=== PATIENT | female | born 1955 | race Caucasian/White ===

== ENCOUNTER 2016-11-13 15:23 | Inpatient (IN) ==
--- NOTE | 2016-11-13 15:50 | Emergency Department Note ---
Disposition Clinical Impression: Perirectal abscess Disposition: Still a Patient Referrals: NONE,PCP [Primary Care Provider] - Forms: ED Satisfaction Letter Skin/Abscess/FB HPI Chief complaint: ED Skin/Abscess/Foreign Body Stated complaint: Perirectal abscess Time Seen by Provider: 11/13/16 15:34 Source: patient, family Limitations: no limitations HPI Narrative: Mrs. Beyer, a 61yo female, presents from the oncology clinic via POV for evaluation of a perirectal abscess. Gradually worsening over the past 3-4 days. Patient has a history of rectal cancer; finished radiation several weeks ago, last chemotherapy was Thursday. No change in bowels or bladder. No lower extremity weakness, numbness, tingling. No fevers or chills. Patient does have an ostomy bag over her colon is still patent she typically has mucousy discharge from her rectum with stool going into her colostomy. She has sharp stabbing pain with any weightbearing to the buttock area and is substantially more comfortable laying flat. ROS: Positive: Perirectal pain Negative: Fever, chills, nausea, vomiting, changes in appetite, changes in bowel habits, difficulty with urination, lower extremity weakness or tingling, chest pain, dyspnea, confusion Previous Rx's Medication Instructions Recorded Magic Mouthwash [Magic Mouthwash 10 ml PO QID PRN #240 ml 09/08/16 BLM] Ondansetron HCl [Zofran] 4 mg PO Q4HR #30 tablet 09/08/16 Prochlorperazine Maleate 10 mg PO Q6H PRN #30 tablet 09/08/16 [Compazine] Omeprazole [PriLOSEC] 20 mg PO BIDAC #60 cap 10/13/16 Capecitabine [Xeloda] 2 tab PO BID #56 tablet 10/15/16 Dronabinol [Marinol] 2.5 mg PO BIDLS #60 capsule 10/16/16 Hydromorphone HCl [Dilaudid] 4 mg PO Q4H PRN #120 tablet 10/27/16 Lidocaine 1 applic TP AD #1 tub 10/27/16 Loperamide [Imodium] 2 mg PO Q6H PRN #30 capsule 11/05/16 Hydrocortisone 2.5% CREAM [Cortaid] 1 applic TP BID #1 tube 11/11/16 OxyCODONE ER (12 HR) [OxyCONTIN] 20 mg PO BID #30 tab.er.12h 11/11/16 Allergies Allergy/AdvReac Type Severity Reaction Status Date / Time Sulfa (Sulfonamide Allergy Hives Verified 11/13/16 14:44 Antibiotics) All systems ED: reviewed and negative except as stated. Past Medical History - Past Medical History Medical history: Reports: cancer Surgical history: Reports: cancer surgery Psychiatric history: Reports: anxiety, depression - Social History Smoking Status: Current some day smoker Smokeless Tobacco Status: No Alcohol use: Reports: none Drug use: Reports: none Physical Exam Vital Signs Reviewed General: Patient is alert, oriented, and in no acute distress. She appears frail and cachectic. HEENT: No facial asymmetry. Head is normocephalic and atraumatic. PERRLA, EOMI. oral mucosa moist. Trachea midline. Cardiovascular: Heart regular rate and rhythm without clicks, rubs, gallops, or murmurs. No JVD. PMI nondisplaced. Respiratory: Symmetric chest rise with good respiratory effort. Bilateral breath sounds are clear without wheezing, crackles, or rhonchi. Abdomen: Scaphoid. Bowel sounds present normoactive x-4 quadrants. Abdomen is soft, nondistended, and nontender. No organomegaly noted. Musculoskeletal: Muscle strength 5/5 and symmetric bilaterally in lower extremities. Skin: Oval subcutaneous fluctuant mass measuring 3.5 cm x 2 cm adjacent to the rectum with overlying erythema and warmth. No notable epicenter and overlying skin is intact. No discharge from this mass or from the rectum. Rectal: Rectal exam deferred secondary to the potential of a complicated rectal abscess. CT with IV contrast pending. Psych: Patient's affect is appropriate for situation. - General Limitations: no limitations General appearance: alert, in no apparent distress Course Course Narrative: Posterior presents with perirectal abscess. It is adjacent to intention to the anus. Given her history of rectal cancer as well as immunocompromised state of current chemotherapy and by mouth steroids, is a potentially complicated abscess. Will CT with IV contrast to define its borders and extent. Anticipate consult with surgery after CT. Currently, patient denies any true analgesia at this time. I requested that she let me know and not suffering pain. She agreed. She has no additional complaints or concerns at this time. 18:30 Patient expresses some pain. We will provide 4 mg morphine and reassess. 18:50 Patient's pain has substantially improved with morphine. CT with IV contrast pending. 19:00 Patient signed out to the night team, Dr. Ordaz and Dr. Duarte. Pending studies: CT with IV contrast to assess for perirectal abscess Recommendations: Consult surgery pending CT results for their evaluation and recommendations of bedside drainage versus OR drainage. Anticipated disposition: Dependent upon recommendations of surgery consultation. Vital Signs Temperature 99.2 F 11/13/16 15:24 Pulse Rate 116 11/13/16 15:24 Respiratory Rate 18 11/13/16 15:24 Blood Pressure 157/87 11/13/16 15:24 O2 Sat by Pulse Oximetry 100 11/13/16 15:24 Temperature 99.2 F 11/13/16 15:24 Pulse Rate 94 11/13/16 19:52 Respiratory Rate 18 11/13/16 19:52 Blood Pressure 146/68 11/13/16 19:52 O2 Sat by Pulse Oximetry 98 11/13/16 19:52 Oxygen Delivery Oxygen Delivery Room Air Skin/Abscess/Foreign Body - Lab Data Result diagrams: 11/13/16 16:35 11/13/16 16:35 Lab Results 11/13/16 11/13/16 11/13/16 Range/Units 16:35 16:35 16:35 WBC 13.4 H (4.3-11.1) K/mcL RBC 3.75 L (3.82-4.97) M/mcL Hgb 10.9 L (11.5-15.4) g/dL Hct 34.4 L (35.3-44.9) % MCV 91.7 (83.0-100.0) fL MCH 29.1 (28.0-33.3) pg MCHC 31.7 (31.6-35.5) g/dL RDW 21.0 H (11.5-14.5) % Plt Count 400 (140-400) K/mcL MPV 8.9 L (9.4-12.4) fL Immature Gran % 0.8 (0-4) % Seg Neutrophils % 87.8 % Lymphocytes % 4.4 % Monocytes % 6.3 % Eosinophils % 0.4 % Basophils % 0.3 % Neutrophils # 11.7 H (1.6-8.9) K/mcL Lymphocytes # 0.6 (0.6-4.6) K/mcL Monocytes # 0.8 (0.0-1.3) K/mcL Eosinophils # 0.1 (0.0-0.6) K/mcL Basophils # 0.0 (0.0-0.2) K/mcL PT 12.6 H (9.4-12.1) Seconds INR 1.2 APTT 30.7 (26.0-36.0) Seconds Sodium 135 L (136-145) mEq/L Potassium 4.3 (3.5-4.5) mEq/L Chloride 101 (98-109) mEq/L Carbon Dioxide 26 (19-29) mEq/L BUN 9 (7-20) mg/dL Creatinine 0.59 (0.57-1.11) mg/dL Est GFR ( Amer) > 60 (> 60) Est GFR (Non-Af Amer) > 60 (> 60) BUN/Creatinine Ratio 15 (6-26) Glucose 101 H (70-99) mg/dL Calculated Osmolality 279 L (280-300) Calcium 9.7 (8.6-10.8) mg/dL Attestation Statement - Attestation Attestation: I examined this patient and my medical decision-making was reviewed with the Resident Physician. I agree with the documented findings, disposition and treatment plan as described except to the extent set forth below. Cancer patient receiving pelvic radiation and chemotherapy with a perirectal abscess. Agree with better definition of the anatomy with IV contrast CT scan. CT pending at change of shift, patient will be checked out to Dr. Ordaz.
[2016-11-13 17:02] LABS: BUN/Creatinine Ratio 15 (6-26); Blood Urea Nitrogen 9 mg/dL (7-20); Calcium 9.7 mg/dL (8.6-10.8); Carbon Dioxide 26 mEq/L (19-29); Chloride 101 mEq/L (98-109); Glucose 101 mg/dL (70-99); Osmolality,Calculated 279 (280-300); Potassium 4.3 mEq/L (3.5-4.5); Sodium 135 mEq/L (136-145); eGFR For African Americans > 60 (> 60); eGFR For Non-African Americans > 60 (> 60)
[2016-11-13] MEDS ORDERED: *HR* Morphine 2 MG/ML SYRINGE IVP STA (17:46)
[2016-11-13 19:20] LABS: Basophils % 0.3 %; Eosinophils # 0.1 K/mcL (0.0-0.6); Eosinophils % 0.4 %; Hematocrit 34.4 % (35.3-44.9); Hemoglobin 10.9 g/dL (11.5-15.4); Immature Granulocytes % 0.8 % (0-4); Lymphocytes # 0.6 K/mcL (0.6-4.6); Lymphocytes % 4.4 %; Mean Corpuscular HGB Conc 31.7 g/dL (31.6-35.5); Mean Corpuscular Hemoglobin 29.1 pg (28.0-33.3); Mean Corpuscular Volume 91.7 fL (83.0-100.0); Mean Platelet Volume 8.9 fL (9.4-12.4); Monocytes # 0.8 K/mcL (0.0-1.3); Monocytes % 6.3 %; Neutrophils # 11.7 K/mcL (1.6-8.9); Platelet Count 400 K/mcL (140-400); Red Blood Count 3.75 M/mcL (3.82-4.97); Segmented Neutrophils % 87.8 %
[2016-11-13] MEDS ORDERED: *HR* Morphine 2 MG/ML SYRINGE IVP ONE (19:23)
[2016-11-13 19:25] LABS: INR 1.2; Prothrombin Time 12.6 Seconds (9.4-12.1)
[2016-11-13 19:28] LABS: Activated Partial Thrombo Time 30.7 Seconds (26.0-36.0)
[2016-11-13] MEDS ORDERED: Vancomycin 750 MG in D5% in Water 250 ML IVPB ONE (19:56)
[2016-11-13] MEDS ORDERED: Piperacillin/Tazobactam 3.375 GM in D5% in Water (Mini-Bag+) 100 ML IVPB ONE (19:56)
--- NOTE | 2016-11-13 19:58 | Emergency Department Note ---
Disposition Clinical Impression: Perirectal abscess Colon cancer Qualifiers: Colon location: unspecified part of colon Qualified Code(s): C18.9 - Malignant neoplasm of colon, unspecified Disposition: Admitted As Inpatient Condition: Good Time of Disposition: 21:57 Skin/Abscess/FB HPI Chief complaint: ED Skin/Abscess/Foreign Body Stated complaint: Perirectal abscess Time Seen by Provider: 11/13/16 15:34 Source: patient, family Limitations: no limitations Nursing Notes Reviewed: Yes Vital Signs Reviewed: Yes HPI Narrative: Patient is a 61-year-old female that presents to the emergency department for pain in her buttock. The patient has a history of stage 4 colon cancer for which she is receiving chemotherapy and radiation. Patient states that she has been having this pain for about [address] Gentile who gave her steroids. This did not seem to improve her symptoms. Patient saw Dr. Gentile today who sent her to the emergency department for evaluation. Patient states that she has been having increased pain and swelling in the buttock. He states that she has had 5 radiation treatments most recent was 3 weeks ago. She receives chemotherapy once every 3 weeks last treatment was last Thursday. Patient had surgery for her colon cancer on August 18 at [facility] in [place]. Patient and her thought that there was removal of 8 inches of colon. They also gave her an ileostomy bag at that time. Home Medications Medication Instructions Recorded Confirmed Ondansetron HCl [Zofran] 4 mg PO Q4HR PRN 11/13/16 11/13/16 fentaNYL [Fentanyl] 100 mcg TD Q72H 11/13/16 11/13/16 Previous Rx's Medication Instructions Recorded Magic Mouthwash [Magic Mouthwash 10 ml PO QID PRN #240 ml 09/08/16 BLM] Prochlorperazine Maleate 10 mg PO Q6H PRN #30 tablet 09/08/16 [Compazine] Omeprazole [PriLOSEC] 20 mg PO BIDAC #60 cap 10/13/16 Capecitabine [Xeloda] 2 tab PO BID #56 tablet 10/15/16 Dronabinol [Marinol] 2.5 mg PO BIDLS #60 capsule 10/16/16 Hydromorphone HCl [Dilaudid] 4 mg PO Q4H PRN #120 tablet 10/27/16 Loperamide [Imodium] 2 mg PO Q6H PRN #30 capsule 11/05/16 Hydrocortisone 2.5% CREAM [Cortaid] 1 applic TP BID #1 tube 11/11/16 OxyCODONE ER (12 HR) [OxyCONTIN] 20 mg PO BID #30 tab.er.12h 11/11/16 Allergies Allergy/AdvReac Type Severity Reaction Status Date / Time Sulfa (Sulfonamide Allergy Hives Verified 11/13/16 14:44 Antibiotics) All systems ED: reviewed and negative except as stated. Musculoskeletal: Reports: other (Pain in buttock region) Past Medical History - Past Medical History Medical history: Reports: cancer Surgical history: Reports: cancer surgery Psychiatric history: Reports: anxiety, depression - Social History Smoking Status: Current some day smoker Smokeless Tobacco Status: No Alcohol use: Reports: none Drug use: Reports: none Physical Exam - General Limitations: no limitations General appearance: alert, in no apparent distress - Head Head exam: atraumatic, normocephalic - Neck Neck exam: Present: normal inspection, full ROM, trachea midline - Respiratory Respiratory exam: Present: normal lung sounds bilaterally. Absent: respiratory distress, wheezes - Cardiovascular Cardiovascular exam: Present: regular rate, normal rhythm, normal heart sounds, +S1, +S2 - Abdominal Exam Abdominal exam: Present: soft, tenderness, normal bowel sounds, other (Patient has ileostomy bag) Abdominal tenderness: Present: diffuse, mild - Rectal Exam Customs Agent present during exam: Yes Rectal exam: Present: other (Possible perirectal abscess on the left) - Neurological Exam Neurological exam: Present: alert, oriented X3 - Psychiatric Psychiatric exam: Present: normal affect, normal mood - Skin Skin exam: Present: warm, dry, intact, erythema (Over in her left buttock) Course - Reevaluation(s) Reevaluation #1: Patient was signed out to me at the beginning of my shift this evening Time: 19:00 - Consultations Consultation #1: I called and spoke with Dr. Quintero the on-call surgeon. Dr. Quintero did not feel that this was an abscess he felt like this was more related to her colon cancer. He did not want to do an incision on this patient and stated to start patient on antibiotics, admit to medicine and consult surgery and oncology. Consultation #2: I spoke with Dr. Oswald at 21:20 and he has accepted the patient to his service Time: 21:20 Consultation #3: I spoke with Dr. Montenegro and informed him of the patient's current situation. He has stated that he will see the patient. Time: 22:00 Vital Signs Temperature 99.2 F 11/13/16 15:24 Pulse Rate 116 11/13/16 15:24 Respiratory Rate 18 11/13/16 15:24 Blood Pressure 157/87 11/13/16 15:24 O2 Sat by Pulse Oximetry 100 11/13/16 15:24 Temperature 98.7 F 11/13/16 23:34 Pulse Rate 78 11/13/16 23:34 Respiratory Rate 18 11/13/16 23:34 Blood Pressure 149/82 11/13/16 23:34 O2 Sat by Pulse Oximetry 100 11/13/16 23:34 Oxygen Delivery Oxygen Delivery Room Air Skin/Abscess/Foreign Body - MDM Narrative Medical decision making narrative: I received this patient on signout at shift change. CT scan showed multiple loculated fluid collections in the soft tissue of the perineum. There appeared to transverse pelvic floor maybe interact continuity with the lobar thickening of the sigmoid colon. I called and spoke with Dr. Quintero the on-call surgeon who did not feel that this needed to be operated on at this time but to admit the patient to the hospitalist service and start her on antibiotics. Also ordered CBC and coags in case the patient would need to go to surgery. I spoke with the hospitalist and they have accepted the patient to their service. I will also consult the surgery and oncology per request of Dr. Quintero. Patient will be admitted to the hospital. - Lab Data Lab results reviewed: Yes I reviewed the patient's lab results. Result diagrams: 11/13/16 16:35 11/13/16 16:35 Lab Results 11/13/16 11/13/16 11/13/16 Range/Units 16:35 16:35 16:35 WBC 13.4 H (4.3-11.1) K/mcL RBC 3.75 L (3.82-4.97) M/mcL Hgb 10.9 L (11.5-15.4) g/dL Hct 34.4 L (35.3-44.9) % MCV 91.7 (83.0-100.0) fL MCH 29.1 (28.0-33.3) pg MCHC 31.7 (31.6-35.5) g/dL RDW 21.0 H (11.5-14.5) % Plt Count 400 (140-400) K/mcL MPV 8.9 L (9.4-12.4) fL Immature Gran % 0.8 (0-4) % Seg Neutrophils % 87.8 % Lymphocytes % 4.4 % Monocytes % 6.3 % Eosinophils % 0.4 % Basophils % 0.3 % Neutrophils # 11.7 H (1.6-8.9) K/mcL Lymphocytes # 0.6 (0.6-4.6) K/mcL Monocytes # 0.8 (0.0-1.3) K/mcL Eosinophils # 0.1 (0.0-0.6) K/mcL Basophils # 0.0 (0.0-0.2) K/mcL PT 12.6 H (9.4-12.1) Seconds INR 1.2 APTT 30.7 (26.0-36.0) Seconds Sodium 135 L (136-145) mEq/L Potassium 4.3 (3.5-4.5) mEq/L Chloride 101 (98-109) mEq/L Carbon Dioxide 26 (19-29) mEq/L BUN 9 (7-20) mg/dL Creatinine 0.59 (0.57-1.11) mg/dL Est GFR ( Amer) > 60 (> 60) Est GFR (Non-Af Amer) > 60 (> 60) BUN/Creatinine Ratio 15 (6-26) Glucose 101 H (70-99) mg/dL Calculated Osmolality 279 L (280-300) Calcium 9.7 (8.6-10.8) mg/dL - Radiology Data Radiology results reviewed: Yes I reviewed the patient's radiology results. Pelvis CT 11/13/16 16:28 IMPRESSION: 1. Gross lobular thickening of the distal rectosigmoid colon which appears stable to slightly worse since prior exam. 2. Multiple loculated fluid collections in the soft tissue of the perineum. Largest pocket is in the left perineum and measures approximately up to 4.5 cm in greatest transverse dimension. Some of the smaller fluid collections appear to traverse the pelvic floor and may be in direct continuity with the lobular thickening of the sigmoid colon. D/ / 11/13/2016 18:20:22 Nino Pollack MD / nicolle Interpreting Provider: Nino Pollack MD Critical Care Time Critical Care Time: Yes Total Critical Care Time: 45 Attestation: Critical care performed: Time is exclusive of separately billable procedures. Time includes: direct patient care, patient reassessment, coordination of patient care, interpretation of data (laboratory data, radiology data, and respiratory data), review of patient's medical records, medical consultation and documentation of patient care. Procedures included in critical care time: Procedures excluded from critical care time: Attestation Statement - Attestation Attestation: I, Axel Ordaz MD, personally evaluated this patient and discussed their management with the resident physician. I reviewed the resident's note and agree with the documented findings, medical decision making, and plan of care. This patient was signed out at shift change from Dr. Israel and Dr. Gage. Please refer to their notes for complete details of the history and physical examination. Patient is a 61-year-old female with history of colon cancer with metastasis diagnosed a few months ago. She is currently on chemotherapy and radiation. She presented to the emergency department complaining of pain and swelling of the medial left buttock. At shift change patient is awaiting a CT scan. CT scan did show a perirectal abscess with deep involvement. On examination patient is a well-developed thin male in no acute distress. She is alert and oriented 3. There is no cyanosis or diaphoresis. Chest is nontender to palpation. Breath sounds are equal bilaterally. Heart regular rate and rhythm. Abdomen is soft and nontender with normal bowel sounds. There is a tender erythematous indurated area to the medial aspect of the left buttock. Labs reviewed. CT reviewed. Dr. Xie discussed the case with the surgeon instrumentation manager, Dr. Quintero. He recommended admission by the hospitalist with oncology consultation and he will also consult on the patient. Case discussed with the oncologist instrumentation manager, Dr. Abdalla. The hospitalist, Dr. Oswald, was consulted and accepted admission of the patient.
[2016-11-13] MEDS ORDERED: Naloxone 0.4 MG/ML INJ IVP PRN (22:25)
[2016-11-13] MEDS ORDERED: Acetaminophen 325 MG TABLET PO PRN (22:25)
[2016-11-13] MEDS ORDERED: Ondansetron 4 MG/2 ML VIAL IVP PRN (22:25)
[2016-11-13] MEDS ORDERED: Magic Mouthwash 10 ML UD Cup PO PRN (22:32)
[2016-11-13] MEDS: *HR* Morphine 2 MG/ML SYRINGE IVP PRN (23:41)
[2016-11-14] MEDS: *HR* HYDROcodone/Acet 5/325 mg TABLET PO PRN ×3 (04:01→19:05)
[2016-11-14] MEDS: Piperacillin/Tazobactam 3.375 GM in D5% in Water (Mini-Bag+) 100 ML IVPB SCH ×3 (05:01→21:44)
[2016-11-14] MEDS: *HR* Heparin 5,000 UNIT/ML VIAL SQ SCH ×2 (05:01→16:53)
[2016-11-14] MEDS: *HR* Morphine 2 MG/ML SYRINGE IVP PRN ×5 (05:02→22:00)
--- NOTE | 2016-11-14 05:05 | Internal Med History&Physical ---
Date of Encounter: 11/13/16 Time of Encounter: 21:00 Assessment and Plan (1) DVT prophylaxis Current visit: Yes Status: Acute Heparin subcutaneously (2) Perirectal abscess Current visit: Yes Status: Acute Surgical consult was called by ER. Recommended antibiotic right now. Surgical consult in a.m. Also oncology consult to rule out cancer related abscess. - Continue IV antibiotic with Vanco and Zosyn. - Pain medication for pain control (3) Colon cancer Current visit: Yes Status: Acute Stage IV colon cancer. On chemotherapy right now. Oncology consult for further management. Qualifiers: Colon location: unspecified part of colon Qualified Code(s): C18.9 - Malignant neoplasm of colon, unspecified Internal Medicine - H&P: HPI Chief complaint: Rectal pain Admitted From: Home Plans for Post Hospital Care: Home History of present illness: Ms. Beyer is a 61 year old female with a history of colon cancer with lung metastasis S/P radiation therapy and on chemotherapy present to ER for rectal area pain for 2-3 weeks. Patient said one week prior to her rectal pain, she started radiation therapy, which was stopped now. Patient denies a fever, no nausea, no vomiting, no chest pain, no shortness of breath. In emergency room, pelvis CT shows андрей-rectal abscess. Patient was admitted for further management. Past Med Surg Social Fam HX - Past Medical History Medical history: cancer Psychiatric history: anxiety, depression - Past Surgical History Surgical History: cancer surgery - Social History Smoking Status: Current some day smoker Smokeless Tobacco Status: No Alcohol use: none Drug use: none - Family History Mother Living Status: Hx Family Cardiac Disorders: Yes Hx Family Respiratory Disorders: No Hx Family Cancer: Yes (Colon cancer) Hx Family GI Disorders: No Hx Family Endocrine Disorder: No Hx Family Neuromuscular Disorders: No Hx Family Neurologic Disorders: No Hx Family HEENT Disorders: No Hx Family Autoimmune Disorders: Yes Internal Medicine - H&P: Meds Magic Mouthwash [Magic Mouthwash BLM] 10 ml PO QID PRN #240 ml 09/08/16 [Rx] Prochlorperazine Maleate [Compazine] 10 mg PO Q6H PRN #30 tablet 09/08/16 [Rx] Omeprazole [PriLOSEC] 20 mg PO BIDAC #60 cap 10/13/16 [Rx] Capecitabine [Xeloda] 2 tab PO BID #56 tablet 10/15/16 [Rx] Dronabinol [Marinol] 2.5 mg PO BIDLS #60 capsule 10/16/16 [Rx] Hydromorphone HCl [Dilaudid] 4 mg PO Q4H PRN #120 tablet 10/27/16 [Rx] Loperamide [Imodium] 2 mg PO Q6H PRN #30 capsule 11/05/16 [Rx] Hydrocortisone 2.5% CREAM [Cortaid] 1 applic TP BID #1 tube 11/11/16 [Rx] OxyCODONE ER (12 HR) [OxyCONTIN] 20 mg PO BID #30 tab.er.12h 11/11/16 [Rx] Ondansetron HCl [Zofran] 4 mg PO Q4HR PRN 11/13/16 [History] fentaNYL [Fentanyl] 100 mcg TD Q72H 11/13/16 [History] 3 Allergy/AdvReac Type Severity Reaction Status Date / Time Sulfa (Sulfonamide Allergy Hives Verified 11/13/16 14:44 Antibiotics) All Systems PM: A 10-system review of systems was performed and is negative for pertinent findings except as documented above in the HPI. - Constitutional Vitals: Temp Pulse Resp BP Pulse Ox 98.4 F 77 18 136/76 98 11/14/16 04:44 11/14/16 04:44 11/14/16 04:44 11/14/16 04:44 11/14/16 04:44 General appearance: Present: mild distress, A&O X 3, answers questions appropriately - Head Head exam: Present: atraumatic, normocephalic - Eye Eye exam: Present: PERRL, conjuntiva pink, sclera anicteric Pupils: Present: PERRL - Neck Neck exam general surgery: Present: supple, trachea midline. Absent: lymphadenopathy - Respiratory Respiratory exam: Present: CTAB. Absent: accessory muscle use, rales, rhonchi, wheezes - Cardiovascular Cardiovascular exam: Present: RRR, +S1, +S2. Absent: diastolic murmur, gallop, rubs, systolic murmur - GI/Abdominal GI/Abdominal exam: Present: normal bowel sounds, soft, no peritoneal signs. Absent: distended, tenderness Additional comments: Андрей-rectal skin redness with mass on left side, severe tenderness. Colostomy bag in place. - Extremities Exam Extremities exam: Present: warm, radial pulses palpable and symmetrical. Absent : calf tenderness, cyanotic, pedal edema - Neurological Exam Neurological exam: Present: CN II-XII intact, oriented X3, no focal deficits. Absent: pronater drift, facial droop, speech deficit - Skin Skin exam: Present: dry, intact Internal Med - H&P Results - Labs CBC & Chem 7: 11/13/16 16:35 11/13/16 16:35
[2016-11-14 07:01] LABS: Basophils # 0.1 K/mcL (0.0-0.2); Basophils % 0.4 %; Eosinophils # 0.1 K/mcL (0.0-0.6); Eosinophils % 0.7 %; Hemoglobin 11.7 g/dL (11.5-15.4); Immature Granulocytes % 0.6 % (0-4); Immature Platelets 1.6 % (1.1-6.1); Lymphocytes # 0.7 K/mcL (0.6-4.6); Lymphocytes % 5.4 %; Mean Corpuscular HGB Conc 32.5 g/dL (31.6-35.5); Mean Corpuscular Hemoglobin 29.5 pg (28.0-33.3); Mean Corpuscular Volume 90.9 fL (83.0-100.0); Monocytes # 0.7 K/mcL (0.0-1.3); Monocytes % 5.5 %; Neutrophils # 10.6 K/mcL (1.6-8.9); Platelet Count 497 K/mcL (140-400); Red Blood Count 3.96 M/mcL (3.82-4.97); Red Cell Distribution Width 21.1 % (11.5-14.5); Segmented Neutrophils % 87.4 %
[2016-11-14 07:18] LABS: BUN/Creatinine Ratio 13 (6-26); Blood Urea Nitrogen 8 mg/dL (7-20); Calcium 10.2 mg/dL (8.6-10.8); Carbon Dioxide 25 mEq/L (19-29); Chloride 99 mEq/L (98-109); Glucose 90 mg/dL (70-99); Magnesium 1.8 mg/dL (1.6-2.6); Osmolality,Calculated 278 (280-300); Potassium 3.8 mEq/L (3.5-4.5); Sodium 135 mEq/L (136-145); eGFR For African Americans > 60 (> 60); eGFR For Non-African Americans > 60 (> 60)
[2016-11-14] MEDS: Vancomycin 750 MG in D5% in Water 250 ML IVPB SCH ×2 (07:45→21:45)
[2016-11-14] MEDS ORDERED: Vancomycin 750 MG in D5% in Water 250 ML IVPB SCH (08:00)
[2016-11-14] MEDS ORDERED: Piperacillin/Tazobactam 3.375 GM in D5% in Water (Mini-Bag+) 100 ML IVPB ONE (08:00)
--- NOTE | 2016-11-14 08:55 | Internal Med Progress Note ---
Date of Encounter: 11/14/16 Time of Encounter: 07:45 - Assessment and plan (1) Perirectal abscess Current Visit: Yes Status: Acute Assessment and plan: Acute perirectal abscess - Possibly related to colon cancer and radiation therapy Continue empiric IV Zosyn, IV Vancomycin, IV Morphine as needed for pain CT pelvis - gross lobular thickening of the distal rectosigmoid colon, multiple loculated fluid collection in the soft tissue of the perineum, largest pocket is in the left perineum measuring approximately 4.5 cm, smaller fluid collections seem to traverse the pelvic floor WBC - 12.2 Gen. surgery consult pending, patient may need drainage of abscess NPO, Continue to monitor closely (2) Colon cancer Current Visit: Yes Status: Acute Assessment and plan: Recently diagnosed stage IV colon cancer - with metastases to lung - on chemoradiation Status post partial colectomy with ileostomy Oncology consult Qualifiers: Colon location: unspecified part of colon Qualified Code(s): C18.9 - Malignant neoplasm of colon, unspecified (3) Tobacco abuse Current Visit: Yes Status: Chronic Assessment and plan: Counseled about cessation, nicotine patch (4) DVT prophylaxis Current Visit: Yes Status: Acute Assessment and plan: Continue heparin subcutaneous - Time Spent With Patient 25 - 35 minutes - Subjective Interval history: Patient awake and alert. Not in any distress. Denies chest pain or shortness of breath. No fever. Hemodynamically stable. Denies vomiting or abdominal pain. Patient complains of mild rectal pain, states it has improved. Admitted for perirectal abscess. Gen. surgery will need to evaluate patient. No other acute events or complaints. - Constitutional Vitals: Temp Pulse Resp BP Pulse Ox 98.4 F 72 16 149/86 98 11/14/16 07:37 11/14/16 07:37 11/14/16 07:37 11/14/16 07:37 11/14/16 07:37 General appearance: Present: cachectic, A&O X 3, pleasant, no acute distress, underweight, answers questions appropriately - Head Head exam: Present: atraumatic - Eye Eye exam: Present: EOMI - ENT ENT exam: Present: mucous membranes dry - Respiratory Respiratory exam: Present: CTAB. Absent: rales, rhonchi, wheezes, tachypnea - Cardiovascular Cardiovascular exam: Present: RRR, +S1, +S2 - GI/Abdominal GI/Abdominal exam: Present: soft. Absent: distended, firm, guarding, tenderness Additional comments: Ileostomy bag in place, site looks okay - Rectal Rectal exam: Present: deferred (Due to pain) - Extremities Exam Extremities exam: Present: radial pulses palpable and symmetrical. Absent: cyanotic, pedal edema - Neurological Exam Neurological exam: Present: alert, oriented X3, no focal deficits. Absent: facial droop, speech deficit Internal Medicine: Result - Labs CBC & Chem 7: 11/14/16 04:34 11/14/16 04:34 Labs: Short CBC 11/14/16 Range/Units 04:34 WBC 12.2 H (4.3-11.1) K/mcL Hgb 11.7 (11.5-15.4) g/dL Hct 36.0 (35.3-44.9) % Plt Count 497 H (140-400) K/mcL Neutrophils # 10.6 H (1.6-8.9) K/mcL BMP 11/14/16 04:34 Sodium 135 L Potassium 3.8 Chloride 99 Carbon Dioxide 25 BUN 8 Creatinine 0.61 Glucose 90 Calcium 10.2 - ABG Interpretation ABG results: PT/INR, D-dimer PT 12.6 Seconds (9.4-12.1) H 11/13/16 16:35 Consult Discharge Plan - Plan Referrals: NONE,PCP [Primary Care Provider] -
[2016-11-14] MEDS: Nicotine 21 MG PATCH.TD24 TD SCH (09:42)
--- NOTE | 2016-11-14 10:06 | Oncology Inp Consult Note ---
Date of Encounter: 11/14/16 Time of Encounter: 09:36 Assessment and Plan (1) Perirectal abscess Status: Acute Assessment and plan: - I personally reviewed CT scan images from November 13, 2016 that revealed multiple loculated fluid collections in the soft tissue of the perineum , largest dimension of of approximately 4.5 cm. Findings are highly concerning for a perirectal abscess. I agree with current management including broad spectrum IV antibiotics ( vanco/zosyn) and surgical consult to assess if surgical drainage is feasible. If not, another consideration would be drainage under Interventional radiology. I discussed my recommendations with Ms. Beyer and her at the bedside. Code(s): K61.1 - Rectal abscess SNOMED Code(s): 46478569 (2) Anemia Status: Chronic Assessment and plan: - She has experienced mild anemia, probably due to a combination of mild bone marrow supression in the settings of chemotherapy, as well as anemia of acute illness. At this time her counts are within an acceptable range and not further intervention or work up is required, other than monitoring CBC daily while inpatient. - I would not transfuse unless her Hb or Hct is less than 7 g/dl or 21 percent respectively. Qualifiers: Anemia type: other cause Other causes of anemia: antineoplastic chemotherapy Qualified Code(s): D64.81 - Anemia due to antineoplastic chemotherapy; T45.1X5A - Adverse effect of antineoplastic and immunosuppressive drugs, initial encounter Code(s): D64.9 - Anemia, unspecified SNOMED Code(s): 377435743 (3) Metastatic colon cancer in female Status: Acute Assessment and plan: - She received her last treatment of Xeloda/Oxaliplatin on November 11 ( Oxaliplatin 85 mg/m2) and currently on day 4 of Xeloda 1000 mg/m2. We would recommend to hold off on chemotherapy due to suspected андрей rectal abscess. - I do not think that the radiologic findings are suggestive of disease progression, in the absence of worsening of previous gross lobular thickening of the distal rectosigmoid colon, new adenopathies or new masses. - She will need to follow up with her primary oncologist Dr. Jackman as outpatient ( within 1-2 weeks after discharge) to decide the appropriate time to resume chemotherapy ( including Xeloda). Code(s): C78.5 - Secondary malignant neoplasm of large intestine and rectum SNOMED Code(s): 592197336, 122064975 - Data of Consult Requesting Physician: Celestino Portillo DO Primary Care Provider: PCP NONE - Consult Narrative Reason for consult: Management of stage IV colorectal cancer and perirectal abscess History of present illness: Chief complaint: rectal pain. Ms. Beyer is a 61 year old female with history of metastatic rectal cancer ( [id number]) presenting referred to the ED by her radiation oncologist Dr. Gentile due to worsening rectal pain. Patient was diagnosed with stage IV metastatic rectal cancer ( lung metastasis) in late July, after being found to present a sigmoid colon mass at 15 cm and rectal mass at 5 cm from anal verge. On 07/3016 L lung biopsy confirmed metastatic adenocarcinoma consistent with primary colorectal cancer. On August 18, 2016 she underwent laparoscopic surgery with lysis of adhesions, resection of small bowel and ileostomy. Resected small bowel showed not evidence of carcinoma. Day 1 of palliative chemotherapy was being planned for September 23, but it was postponed due to GIB. Eventually, she received Xelox was started on September 30 ( regimen consisted of Oxaliplatin 85 mg/m2 on day 1, and xeloda 1000 mg BID from day 1-14 of a 21 day cycle). She was treated with palliative radiation to the pelvis from October 16-2016, so her chemotherapy treatments were interrupted. She has received so far 4 doses of Oxaliplatin, with the last treatment administered on November 11, 2016 ( 85 mg/ m2). She resumed xeloda that same day ( current on day 4). She was referred to our ED due to servere rectal pain, that she feels has being worsening for the last 4-5 days. She reports not associated fever, chills. She feels that the pain is better when lying down flat, and worse when sitting down. She has not noticed associated rectal beeding or discharge. She underwent a CT scan in the ED that revealed multiple fluid collections in the perirectal area. Surgery has been consulted to assess whether collections may be drained. Her pelvic scan performed on 11/13 showed stable rectal lobular thickening. No associated lymphadenopathies. Ms. Beyer reports mild tingling in her upper extremities that does not interfere with her daily life routine. She also reports mild redness in both hands that improved after being started on topical hydrocortisone. REVIEW AND SUMMARY OF OLD RECORDS: -I reviewed the patient's chart, including surgical history ( laparoscopic surgery on 08/18/16 with lysis of adhesions, and resected small bowel that showed not evidence of carcinoma) and oncology history dating back to his first documented oncology visit on August 25, 2016, including the clinical events, imaging and pathologic findings that led to the diagnosis of stage IV colorectal cancer. Ms. Beyer was started on chemotherapy with Xelox regimen ( 85 mg/m2 on day 1 and Xeloda 1000 mg BID from day 1-14 of 21 day cycle ) started on September 30 ( day 1 was initially being planned for september 23, but postponed due to GI bleeding), then she experienced another interruption from October 16- while undergoing palliative pelvic radiation. Avastin was being planned with cycle #3 due on November 25, 2016. Past Med Surg Social Fam HX - Past Medical History Medical history: cancer Psychiatric history: anxiety, depression - Past Surgical History Surgical History: cancer surgery - Social History Smoking Status: Current some day smoker Smokeless Tobacco Status: No Alcohol use: none Drug use: none - Family History Mother Living Status: Hx Family Cardiac Disorders: Yes Hx Family Respiratory Disorders: No Hx Family Cancer: Yes (Colon cancer) Hx Family GI Disorders: No Hx Family Endocrine Disorder: No Hx Family Neuromuscular Disorders: No Hx Family Neurologic Disorders: No Hx Family HEENT Disorders: No Hx Family Autoimmune Disorders: Yes Medications and Allergies Magic Mouthwash [Magic Mouthwash BLM] 10 ml PO QID PRN #240 ml 09/08/16 [Rx] Prochlorperazine Maleate [Compazine] 10 mg PO Q6H PRN #30 tablet 09/08/16 [Rx] Omeprazole [PriLOSEC] 20 mg PO BIDAC #60 cap 10/13/16 [Rx] Capecitabine [Xeloda] 2 tab PO BID #56 tablet 10/15/16 [Rx] Dronabinol [Marinol] 2.5 mg PO BIDLS #60 capsule 10/16/16 [Rx] Hydromorphone HCl [Dilaudid] 4 mg PO Q4H PRN #120 tablet 10/27/16 [Rx] Loperamide [Imodium] 2 mg PO Q6H PRN #30 capsule 11/05/16 [Rx] Hydrocortisone 2.5% CREAM [Cortaid] 1 applic TP BID #1 tube 11/11/16 [Rx] OxyCODONE ER (12 HR) [OxyCONTIN] 20 mg PO BID #30 tab.er.12h 11/11/16 [Rx] Ondansetron HCl [Zofran] 4 mg PO Q4HR PRN 11/13/16 [History] fentaNYL [Fentanyl] 100 mcg TD Q72H 11/13/16 [History] 3 Allergy/AdvReac Type Severity Reaction Status Date / Time Sulfa (Sulfonamide Allergy Hives Verified 11/13/16 14:44 Antibiotics) Constitutional: Absent: anorexia, excessive sweating, fever(s), headache(s), increased appetite, night sweats, weight loss Eyes: Absent: diplopia Cardiovascular: Absent: chest pain, chest pain at rest, chest pain with activity , dyspnea, dyspnea on exertion, edema, irregular heart rhythm, leg edema, orthopnea Respiratory: Absent: cough, dyspnea, hemoptysis, dyspnea on exertion Gastrointestinal: Absent: abdominal pain Additional comments: Ileostomy bad noticed; functional with stools present. Reports not change in amount of stools. Genitourinary: Absent: abnormal vaginal bleeding, flank pain Musculoskeletal: Absent: abnormal gait Additional comments: palmar erythema in both hands. Neurological: Present: paresthesias. Absent: abnormal gait, abnormal hearing Psychiatric: Absent: behavioral changes, confusion Endocrine: Absent: excessive sweating, polyphagia Hematologic/Lymphatic: Present: as per HPI Allergic/Immunologic: Absent: throat swelling Oncology - Exam - Constitutional Vitals: Temp Pulse Resp BP Pulse Ox 98.4 F 72 16 149/86 98 11/14/16 07:37 11/14/16 07:37 11/14/16 07:37 11/14/16 07:37 11/14/16 07:37 General appearance: cooperative, no acute distress - Head Head exam: Present: normal inspection, normocephalic - Eye Eye exam: Present: EOMI, normal appearance, PERRL - ENT ENT exam: Present: mucous membranes moist, normal oropharynx - Neck Neck exam: Present: full ROM, normal inspection. Absent: lymphadenopathy, tenderness - Respiratory Respiratory exam: Present: CTAB. Absent: chest wall tenderness, respiratory distress, wheezes - Cardiovascular Cardiovascular exam: Present: RRR. Absent: irregular rhythm, JVD, systolic murmur - GI/Abdominal GI/Abdominal exam: Present: normal bowel sounds. Absent: distended, hyperactive bowel sounds, organomegaly, pulsatile mass, rebound Additional comments: Ileostomy bag noticed. Stools present, soft consistency. No leaks. There is not abdominal tenderness with palpation. BS present. no hepatosplenomegaly. - Extremities Exam Extremities exam: Present: normal inspection. Absent: pedal edema, tenderness - Back Exam Back exam: Present: normal inspection. Absent: muscle spasm, paraspinal tenderness - Neurological Exam Neurological exam: Present: alert, oriented X3. Absent: altered - Psychiatric Psychiatric exam: Present: normal affect, normal mood - Skin Skin exam: Present: normal color. Absent: petechiae Oncology - Results Labs: Short CBC 11/14/16 Range/Units 04:34 WBC 12.2 H (4.3-11.1) K/mcL Hgb 11.7 (11.5-15.4) g/dL Hct 36.0 (35.3-44.9) % Plt Count 497 H (140-400) K/mcL Neutrophils # 10.6 H (1.6-8.9) K/mcL BMP 11/14/16 04:34 Sodium 135 L Potassium 3.8 Chloride 99 Carbon Dioxide 25 BUN 8 Creatinine 0.61 Glucose 90 Calcium 10.2 Consult Discharge Plan - Plan Referrals: NONE,PCP [Primary Care Provider] -
--- NOTE | 2016-11-14 12:14 | General Surgery Consult Note ---
<Rossana Germain Amrita - Last Filed: 11/14/16 13:21> Date of Encounter: 11/14/16 Time of Encounter: 12:00 Assessment and Plan (1) Perirectal abscess Current Visit: Yes Status: Acute Needle aspiration of perirectal abscess today at bedside Regular diet Send fluid for culture- gram stain, aerobic, anaerobic IV antibiotics- Zosyn, Vancomycin Supportive care and pain control Oncology following (2) Rectal adenocarcinoma metastatic to lung Current Visit: Yes Status: Acute Oncology following for recommendations History of Present Illness Consult date: 11/14/16 Reason for consult: other (Perirectal abscess) Requesting physician: Klaus Xie History of present illness: Mrs. Beyer is a very pleasant 61 year old female with a history of Stage 4 metastatic rectal cancer (lung metastasis). She is s/p diverting ileostomy at a [facility] in July of 2016. She is currently on chemotherapy and has received radiation therapy. She reports to the ED with complaints of rectal discomfort for the past 2-3 weeks. She states that the rectal pain has continued to progress without relief. She does report some discharge from her rectum. Denies any nausea/vomiting. Denies any fevers/chills. Denies any abdominal discomfort. Denies any changes in appetite. Denies any diffisulty with urination. She continues to have liquid stool from her ileostomy which is unchanged. She has had a CT scan which shows evidence of perirectal abscess ( multiple). We have been asked to see and evaluate the patient for recommendations. Past Med Surg Social Fam HX - Past Medical History Source: patient, old records reviewed Medical history: cancer (metastatic rectal cancer (lung metastasis)), GERD Psychiatric history: anxiety, depression - Past Surgical History Surgical History: cancer surgery (Diverting ileostomy), other (Lung biopsy) - Social History Smoking Status: Current some day smoker Smokeless Tobacco Status: No Alcohol use: none Drug use: none Current living situation: Home - Independent (with ) Activity Level: Independent ambulation - Family History Mother Living Status: Hx Family Cardiac Disorders: Yes Hx Family Respiratory Disorders: No Hx Family Cancer: Yes (Colon cancer) Hx Family GI Disorders: No Hx Family Endocrine Disorder: No Hx Family Neuromuscular Disorders: No Hx Family Neurologic Disorders: No Hx Family HEENT Disorders: No Hx Family Autoimmune Disorders: Yes Medications and Allergies Magic Mouthwash [Magic Mouthwash BLM] 10 ml PO QID PRN #240 ml 09/08/16 [Rx] Prochlorperazine Maleate [Compazine] 10 mg PO Q6H PRN #30 tablet 09/08/16 [Rx] Omeprazole [PriLOSEC] 20 mg PO BIDAC #60 cap 10/13/16 [Rx] Capecitabine [Xeloda] 2 tab PO BID #56 tablet 10/15/16 [Rx] Dronabinol [Marinol] 2.5 mg PO BIDLS #60 capsule 10/16/16 [Rx] Hydromorphone HCl [Dilaudid] 4 mg PO Q4H PRN #120 tablet 10/27/16 [Rx] Loperamide [Imodium] 2 mg PO Q6H PRN #30 capsule 11/05/16 [Rx] Hydrocortisone 2.5% CREAM [Cortaid] 1 applic TP BID #1 tube 11/11/16 [Rx] OxyCODONE ER (12 HR) [OxyCONTIN] 20 mg PO BID #30 tab.er.12h 11/11/16 [Rx] Ondansetron HCl [Zofran] 4 mg PO Q4HR PRN 11/13/16 [History] fentaNYL [Fentanyl] 100 mcg TD Q72H 11/13/16 [History] 3 Allergy/AdvReac Type Severity Reaction Status Date / Time Sulfa (Sulfonamide Allergy Hives Verified 11/13/16 14:44 Antibiotics) Review of Systems All systems PM: reviewed and no additional remarkable complaints except as stated (in the HPI) All systems PM: A 10-system review of systems was performed and is negative for pertinent findings except as documented above in the HPI. General Surgery Exam Initial Vital Signs Temp Pulse Resp BP Pulse Ox 99.2 F 116 18 157/87 100 11/13/16 15:24 11/13/16 15:24 11/13/16 15:24 11/13/16 15:24 11/13/16 15:24 - General physical appearance well developed, well nourished, moderate pain, cachectic - Eyes normal ocular movement - ENT normal mucosa, atraumatic, normocephalic - Neck trachea midline - Respiratory normal respiratory effort, clear to auscultation - Cardiovascular Cardiovascular exam: Present: RRR - Abdomen Abdomen general surgery: Present: bowel sounds present, soft, non tender, wound (ileostomy pink and moist with liquid stool noted) - Rectum Rectum: Present: other (tender with fluctuance noted bilaterally, mild erythema noted) - Integumentary Integumentary general surgery: Present: warm and dry - Neurologic Present: CN 2-12 grossly intact - Musculoskeletal Present: normal gait, normal posture - Psychiatric Psychiatric general surgery: Present: appropriate, oriented to person, oriented to place, oriented to time, speech is normal, memory intact Exam Initial Vital Signs Temp Pulse Resp BP Pulse Ox 99.2 F 116 18 157/87 100 11/13/16 15:24 11/13/16 15:24 11/13/16 15:24 11/13/16 15:24 11/13/16 15:24 Results - Labs 11/14/16 04:34 11/14/16 04:34 Abnormal lab results WBC 12.2 K/mcL (4.3-11.1) H 11/14/16 04:34 RDW 21.1 % (11.5-14.5) H 11/14/16 04:34 Plt Count 497 K/mcL (140-400) H 11/14/16 04:34 MPV 9.0 fL (9.4-12.4) L 11/14/16 04:34 Neutrophils # 10.6 K/mcL (1.6-8.9) H 11/14/16 04:34 PT 12.6 Seconds (9.4-12.1) H 11/13/16 16:35 Sodium 135 mEq/L (136-145) L 11/14/16 04:34 POC Glucose 110 (58-89) H 11/14/16 11:05 Calculated Osmolality 278 (280-300) L 11/14/16 04:34 Diabetes panel 11/14/16 Range/Units 04:34 Sodium 135 L (136-145) mEq/L Potassium 3.8 (3.5-4.5) mEq/L Chloride 99 (98-109) mEq/L Carbon Dioxide 25 (19-29) mEq/L BUN 8 (7-20) mg/dL Creatinine 0.61 (0.57-1.11) mg/dL Glucose 90 (70-99) mg/dL Calcium 10.2 (8.6-10.8) mg/dL Calcium panel 11/14/16 Range/Units 04:34 Calcium 10.2 (8.6-10.8) mg/dL Pituitary panel 11/14/16 Range/Units 04:34 Sodium 135 L (136-145) mEq/L Potassium 3.8 (3.5-4.5) mEq/L Chloride 99 (98-109) mEq/L Carbon Dioxide 25 (19-29) mEq/L BUN 8 (7-20) mg/dL Creatinine 0.61 (0.57-1.11) mg/dL Glucose 90 (70-99) mg/dL Calcium 10.2 (8.6-10.8) mg/dL Adrenal panel 11/14/16 Range/Units 04:34 Sodium 135 L (136-145) mEq/L Potassium 3.8 (3.5-4.5) mEq/L Chloride 99 (98-109) mEq/L Carbon Dioxide 25 (19-29) mEq/L BUN 8 (7-20) mg/dL Creatinine 0.61 (0.57-1.11) mg/dL Glucose 90 (70-99) mg/dL Calcium 10.2 (8.6-10.8) mg/dL All other labs normal. - Imaging CT scan - abdomen: report reviewed CT scan - pelvis: report reviewed Additional studies: Pelvis CT 11/13/16 16:28 IMPRESSION: 1. Gross lobular thickening of the distal rectosigmoid colon which appears stable to slightly worse since prior exam. Malignant neoplasia is suspected. 2. Multiple loculated fluid collections in the soft tissue of the perineum. Largest pocket is in the left perineum and measures approximately up to 4.5 cm in greatest transverse dimension. Some of the smaller fluid collections appear to traverse the pelvic floor and may be in direct continuity with irregular appearing sigmoid colon. D/ / 11/13/2016 18:20:22 Nino Pollack MD / [facility] Interpreting Provider: Nino Pollack MD Consult Discharge Plan - Plan Referrals: NONE,PCP [Primary Care Provider] - <Emre Quintero M - Last Filed: 11/14/16 16:23> Date of Encounter: 11/14/16 Review of Systems All systems PM: A 10-system review of systems was performed and is negative for pertinent findings except as documented above in the HPI. General Surgery Exam Initial Vital Signs Temp Pulse Resp BP Pulse Ox 99.2 F 116 18 157/87 100 11/13/16 15:24 11/13/16 15:24 11/13/16 15:24 11/13/16 15:24 11/13/16 15:24 Exam Initial Vital Signs Temp Pulse Resp BP Pulse Ox 99.2 F 116 18 157/87 100 11/13/16 15:24 11/13/16 15:24 11/13/16 15:24 11/13/16 15:24 11/13/16 15:24 Results - Labs 11/14/16 04:34 11/14/16 04:34 Abnormal lab results WBC 12.2 K/mcL (4.3-11.1) H 11/14/16 04:34 RDW 21.1 % (11.5-14.5) H 11/14/16 04:34 Plt Count 497 K/mcL (140-400) H 11/14/16 04:34 MPV 9.0 fL (9.4-12.4) L 11/14/16 04:34 Neutrophils # 10.6 K/mcL (1.6-8.9) H 11/14/16 04:34 PT 12.6 Seconds (9.4-12.1) H 11/13/16 16:35 Sodium 135 mEq/L (136-145) L 11/14/16 04:34 POC Glucose 110 (58-89) H 11/14/16 11:05 Calculated Osmolality 278 (280-300) L 11/14/16 04:34 Diabetes panel 11/14/16 Range/Units 04:34 Sodium 135 L (136-145) mEq/L Potassium 3.8 (3.5-4.5) mEq/L Chloride 99 (98-109) mEq/L Carbon Dioxide 25 (19-29) mEq/L BUN 8 (7-20) mg/dL Creatinine 0.61 (0.57-1.11) mg/dL Glucose 90 (70-99) mg/dL Calcium 10.2 (8.6-10.8) mg/dL Calcium panel 11/14/16 Range/Units 04:34 Calcium 10.2 (8.6-10.8) mg/dL Pituitary panel 11/14/16 Range/Units 04:34 Sodium 135 L (136-145) mEq/L Potassium 3.8 (3.5-4.5) mEq/L Chloride 99 (98-109) mEq/L Carbon Dioxide 25 (19-29) mEq/L BUN 8 (7-20) mg/dL Creatinine 0.61 (0.57-1.11) mg/dL Glucose 90 (70-99) mg/dL Calcium 10.2 (8.6-10.8) mg/dL Adrenal panel 11/14/16 Range/Units 04:34 Sodium 135 L (136-145) mEq/L Potassium 3.8 (3.5-4.5) mEq/L Chloride 99 (98-109) mEq/L Carbon Dioxide 25 (19-29) mEq/L BUN 8 (7-20) mg/dL Creatinine 0.61 (0.57-1.11) mg/dL Glucose 90 (70-99) mg/dL Calcium 10.2 (8.6-10.8) mg/dL All other labs normal. - Attending Attestation For this encounter, I have reviewed the MUD BOSS or PA documentation, treatment plan, and medical decision making; and I have had face to face time with this patient. I reviewed the assessment and evaluation with the nurse practitioner and agree with the above plan. We have discussed the patient's clinical course and history that are cancer conference. Patient has rectal sigmoid cancer and had a diverting colostomy performed at [facility]. She has had chemotherapy as well as radiation therapy because of worsening pain symptoms she had a CT scan of the pelvis performed (ordered by the radiation oncologist) . The CT scan shows evidence of fluid loculations in the pelvis in an area extending to the soft tissues of the left buttocks of the anus. On examination there is an area on the left buttocks that is soft and fluctuant tense. There is erythema present. I discussed with the patient that we have discussed the overall considerations early this morning. The possibilities are that this either is a abscess or necrotic tumor or a combination of both. I explained to the patient that most likely this is a combination of extension of her rectal cancer and an abscess. The area is pronounced at the level of the subcutaneous tissue and the epidermis is a buttocks and it is painful causing significant discomfort with sitting. This area will rupture and IV antibiotics alone will not help resolve this fluid collection although it MAY help with the fluid collections deeper in the pelvis along the pelvic floor. Given all the possible scenarios I do not think it would be appropriate to do nothing I the not perform some type of drainage procedure for fear that this may be necrotic cancer. This will not resolve on its own and radiation therapy nor chemotherapy would resolve this if this was necrotic tumor. One way or another this will rupture and it would be best if we can help control this drainage by performing a needle drainage of this which might be a combination of abscess and cancer. I will ask my MUD BOSS to go ahead and perform a needle drainage and I discussed with the patient that this very well could result in a chronic wound. I think that if we do nothing that this will result in a spontaneous rupture and a chronic wound and I think that the CT scan may really demonstrate a fistulous formation from the rectum leading to the skin. At least with a needle drainage we can help contain this and help her symptomatically. The patient understands that this is likely progression of her disease process and understands all possible outcomes. We will go ahead and perform the needle drainage procedure at the beside.
--- NOTE | 2016-11-14 12:31 | IR Progress Note ---
Vital Signs: Vital Signs/O2 Sat, Most Current Temp Pulse Resp BP Pulse Ox 98.9 F 73 15 135/82 100 11/14/16 11:07 11/14/16 11:07 11/14/16 11:07 11/14/16 11:07 11/14/16 11:07 Recent Labs: Lab Results 11/14/16 11/14/16 04:34 04:34 WBC 12.2 H RBC 3.96 Hgb 11.7 Hct 36.0 MCV 90.9 MCH 29.5 MCHC 32.5 RDW 21.1 H Plt Count 497 H MPV 9.0 L Neutrophils # 10.6 H Lymphocytes # 0.7 Monocytes # 0.7 Eosinophils # 0.1 Basophils # 0.1 Sodium 135 L Potassium 3.8 Chloride 99 Carbon Dioxide 25 BUN 8 Creatinine 0.61 Est GFR ( Amer) > 60 Est GFR (Non-Af Amer) > 60 BUN/Creatinine Ratio 13 Glucose 90 Calcium 10.2 Magnesium 1.8 Assessment and Plan Reviewed the pelvic CT scan from 11/13/16. The abnormalities seen in the perirectal/perianal regions are likely necrotic tumor rather than infection. It is very unfortunate to see the aggressive nature of this process. This tumor is likely to invade into and cause ulceration of the skin. Drainage is not indicated.
[2016-11-14] MEDS ORDERED: Lidocaine -MPF 1% 5 ML AMPUL INFILT ONE (12:38)
[2016-11-14] MEDS ORDERED: Lidocaine -MPF 1% 2 ML VIAL INFILT ONE (13:00)
--- NOTE | 2016-11-14 16:15 | General Surgery Procedure Note ---
Date of procedure: 11/14/16 Pre-op diagnosis: Perirectal abscess Post-op diagnosis: same Procedure: After informed consent was obtained and timeout performed, the patient was placed in the left lateral position. Her left buttock was prepped with Betadine swabs. After prepping her buttock, she was localized with 5 mL's of 1 % lidocaine. After achieving appropriate localization, a 19-gauge needle was inserted into the most fluctuant area of the fluid collection. There was immediate return of a small amount of purulent drainage. The needle was redirected in an attempt to aspirate more fluid. A total of 1 mL's of purulent drainage was removed. Cultures were sent for Gram stain, aerobic culture, anaerobic culture, and cytology. The patient tolerated this well. The area was cleansed with water and dried. There was no blood loss and no immediate complications noted. Complications: none Anesthesia: local (1% (5ml)) Surgeon: Rossana Germain Manager Quantitative: Jodi Barron Estimated blood loss (cc): 0 Pathology: other (gram stain, aerobic culture, anaerobic culture, cytology) Condition: stable Disposition: no change
[2016-11-14] MEDS ORDERED: Temazepam 15 MG CAPSULE PO ONE (21:47)
[2016-11-15] MEDS: *HR* HYDROcodone/Acet 5/325 mg TABLET PO PRN ×3 (02:51→15:45)
[2016-11-15 03:06] LABS: Basophils % 0.5 %; Eosinophils # 0.1 K/mcL (0.0-0.6); Eosinophils % 1.5 %; Hemoglobin 11.1 g/dL (11.5-15.4); Immature Granulocytes % 0.9 % (0-4); Lymphocytes # 0.7 K/mcL (0.6-4.6); Lymphocytes % 7.9 %; Mean Corpuscular HGB Conc 31.7 g/dL (31.6-35.5); Mean Corpuscular Hemoglobin 28.5 pg (28.0-33.3); Mean Platelet Volume 8.5 fL (9.4-12.4); Monocytes # 0.6 K/mcL (0.0-1.3); Monocytes % 6.7 %; Neutrophils # 6.8 K/mcL (1.6-8.9); Platelet Count 405 K/mcL (140-400); Red Blood Count 3.89 M/mcL (3.82-4.97); Red Cell Distribution Width 21.2 % (11.5-14.5); Segmented Neutrophils % 82.5 %
[2016-11-15] MEDS: Piperacillin/Tazobactam 3.375 GM in D5% in Water (Mini-Bag+) 100 ML IVPB SCH ×2 (05:45→13:17)
[2016-11-15] MEDS: *HR* Heparin 5,000 UNIT/ML VIAL SQ SCH (05:46)
[2016-11-15] MEDS: Vancomycin 750 MG in D5% in Water 250 ML IVPB SCH (07:51)
[2016-11-15] MEDS: Nicotine 21 MG PATCH.TD24 TD SCH (07:52)
--- NOTE | 2016-11-15 09:19 | General Surgery Progress Note ---
Date of Encounter: 11/15/16 Time of Encounter: : - Assessment and Plan (1) Perirectal abscess Current Visit: Yes Status: Acute I explained to the patient that I am pleased with how well she has been doing since the needle decompression was performed. Although a small amount of fluid was removed she is symptomatically improved. There is no fluctuance on examination. I think that after receiving her next dosage of IV Zosyn that she could be considered for discharge home this evening with oral antibiotics. She will definitely need to follow with oncology within the next couple of weeks and I will make sure she has a chance to follow-up with our office for reevaluation. Subjective Patient reports: other (The patient states that she has less pain and feels better. Denies any drainage.) Objective Vital Signs - Last 8 Hours Temp Pulse Resp BP Pulse Ox 11/15/16 07:25 98.9 F 89 16 150/57 100 11/15/16 04:49 98.5 F 65 16 151/70 94 Intake and Output 11/14/16 11/15/16 11/15/16 23:59 07:59 15:59 Intake Total 250 / 250 100 / 100 Output Total 100 / 100 Balance 150 / 150 100 / 100 Intake: IV Fluids 250 / 250 100 / 100 Zosyn 3.375 GM In 100 / 100 Dextrose 5% (Minibag+) 100 ML 100 ML @ 25 mls/hr IVPB Q8H DENIZ Rx#: [id number] Vancocin 750 MG In 250 / 250 Dextrose 5% 250 ML @ 250 mls/hr IVPB Q12H DENIZ Rx#: [id number] Output: Urine 100 / 100 Other: # Voids 2 Weight 39 kg Blood Glucose* 120 111 Patient Weight 11/15/16 23:59 Weight 39 kg - General physical appearance no distress - Additional Exam Perianal examination does show some still faint redness and induration but decreased fluctuance. No drainage along the left buttocks from the previous needle insertion site. - Labs 11/15/16 02:39 11/14/16 04:34 Consult Discharge Plan - Plan Referrals: NONE,PCP [Primary Care Provider] -
--- NOTE | 2016-11-15 10:31 | Oncology Inp Progress Note ---
Date of Encounter: 11/15/16 Time of Encounter: 10:28 (1) Perirectal abscess Current Visit: Yes Status: Acute Assessment and plan: - Improving after being managed with broad spectrum antibiotics, and needle drainage of 1cc of purulent material ( yesterday). Material sent for cytology, cultures and gram stain. gram stain not specific, cultures and cytology pending. - From the oncology point of view she is being cleared to be discharged home. Antibiotics need to be transitioned to PO. In view of ongoing infectious issues I recommend to continue holding off xeloda upon discharge ( this was discussed with patient). She will need to follow up with her primary Oncologist Dr. Jackman shortly after discharge to discuss further recommendations, including appropriate time to resume chemotherapy. Code(s): K61.1 - Rectal abscess SNOMED Code(s): 11138430 (2) Anemia Current Visit: No Status: Chronic Assessment and plan: - red cell counts remain stable. Qualifiers: Anemia type: other cause Other causes of anemia: antineoplastic chemotherapy Qualified Code(s): D64.81 - Anemia due to antineoplastic chemotherapy; T45.1X5A - Adverse effect of antineoplastic and immunosuppressive drugs, initial encounter Code(s): D64.9 - Anemia, unspecified SNOMED Code(s): 087782508 (3) Metastatic colon cancer in female Current Visit: No Status: Acute Assessment and plan: - She received her last treatment of Xeloda/Oxaliplatin on November 11 ( Oxaliplatin 85 mg/m2) and currently on day 5 since Xeloda was resumed on . Xeloda on hold since admission due to андрей rectal abscess. Code(s): C78.5 - Secondary malignant neoplasm of large intestine and rectum SNOMED Code(s): 082212308, 437304050 Oncology: Subj Interval history: Patient reports improvement of her perineal pain after needle aspiration of small amount of purulent material yesterday ( 1cc). She denies fever, chills. She reports being tolerating meals. Ileostomy working appropriately. Denies significant overnight issues. Family present at bedside, including patient's and daughter. ROS: negative for fever, CP, SOB. - Constitutional Vitals: Vital Signs Temp Pulse Resp BP Pulse Ox 11/15/16 07:25 98.9 F 89 16 150/57 100 11/15/16 04:49 98.5 F 65 16 151/70 94 11/15/16 01:03 98.1 F 71 16 123/70 98 11/14/16 19:25 98.8 F 75 15 135/62 96 11/14/16 16:06 98.8 F 81 15 138/79 99 11/14/16 11:07 98.9 F 73 15 135/82 100 Intake and Output 11/14/16 11/15/16 11/15/16 23:59 07:59 15:59 Intake Total 250 / 250 100 / 100 Output Total 100 / 100 Balance 150 / 150 100 / 100 Intake: IV Fluids 250 / 250 100 / 100 Zosyn 3.375 GM In 100 / 100 Dextrose 5% (Minibag+) 100 ML 100 ML @ 25 mls/hr IVPB Q8H DENIZ Rx#: [id number] Vancocin 750 MG In 250 / 250 Dextrose 5% 250 ML @ 250 mls/hr IVPB Q12H DENIZ Rx#: [id number] Output: Urine 100 / 100 Other: Meal Breakfast Percent of Meal Consumed 0% # Voids 2 Weight 39 kg Blood Glucose* 120 111 Patient Weight 11/15/16 23:59 Weight 39 kg - Head Head exam: Present: normal inspection - Eye Eye exam: Present: EOMI, normal appearance - ENT ENT exam: Present: mucous membranes moist - Respiratory Respiratory exam: Present: CTAB - Cardiovascular Cardiovascular exam: Present: RRR - GI/Abdominal GI/Abdominal exam: Present: normal bowel sounds, soft. Absent: organomegaly, rebound, rigid, tenderness Additional comments: Ileostomy bag in place. - Extremities Exam Extremities exam: Present: normal inspection. Absent: pedal edema - Neurological Exam Neurological exam: Present: oriented X3. Absent: no focal deficits - Psychiatric Psychiatric exam: Present: normal affect, normal mood - Skin Skin exam: Present: normal color Oncology: Obj Data - Labs CBC & Chem 7: 11/15/16 02:39 11/14/16 04:34 Labs: Laboratory Results - last 24 hr 11/14/16 11/14/16 11/15/16 11:05 16:59 01:08 WBC RBC Hgb Hct MCV MCH MCHC RDW Plt Count MPV Immature Gran % Seg Neutrophils % Lymphocytes % Monocytes % Eosinophils % Basophils % Neutrophils # Lymphocytes # Monocytes # Eosinophils # Basophils # POC Glucose 110 H 120 H 111 H Vancomycin Trough 11/15/16 11/15/16 02:39 06:45 WBC 8.2 RBC 3.89 Hgb 11.1 L Hct 35.0 L MCV 90.0 MCH 28.5 MCHC 31.7 RDW 21.2 H Plt Count 405 H MPV 8.5 L Immature Gran % 0.9 Seg Neutrophils % 82.5 Lymphocytes % 7.9 Monocytes % 6.7 Eosinophils % 1.5 Basophils % 0.5 Neutrophils # 6.8 Lymphocytes # 0.7 Monocytes # 0.6 Eosinophils # 0.1 Basophils # 0.0 POC Glucose Vancomycin Trough 14.5 - ABG Interpretation ABG results: PT/INR, D-dimer PT 12.6 Seconds (9.4-12.1) H 11/13/16 16:35 Consult Discharge Plan - Plan Referrals: NONE,PCP [Primary Care Provider] -
--- NOTE | 2016-11-15 13:21 | Discharge Summary ---
Date of Encounter: 11/15/16 Time of Encounter: 07:30 - Discharge Diagnosis (1) Perirectal abscess Priority: Primary Status: Acute Comments: Acute Perirectal abscess - Possibly related to colon cancer and radiation therapy - s/p needle decompression - symptomatically improved Continue empiric PO Clindamycin, [place] as needed for pain CT pelvis - gross lobular thickening of the distal rectosigmoid colon, multiple loculated fluid collection in the soft tissue of the perineum, largest pocket is in the left perineum measuring approximately 4.5 cm, smaller fluid collections seem to traverse the pelvic floor WBC - 12.2 Gen. surgery consult - appreciate input Stable for discharge today Advised to follow up with oncology and general surgery as outpatient, return is symptoms worsen (2) Colon cancer Priority: Primary Status: Acute Comments: Recently diagnosed stage IV colon cancer - with metastases to lung - on chemoradiation Status post partial colectomy with ileostomy Oncology consult - recommendations reviewed - advised to hold chemotherapy until outpatient follow-up Follow up with primary oncologist, Dr. Jackman early next week Qualifiers: Colon location: unspecified part of colon Qualified Code(s): C18.9 - Malignant neoplasm of colon, unspecified (3) Tobacco abuse Priority: Secondary Status: Chronic Comments: Counseled about cessation, nicotine patch - Discharge Medications Prescriptions: Clindamycin HCl 300 mg PO QID 7 Days Nicotine Patch [Nicoderm] 21 mg TD DAILY #30 Home Medications: Magic Mouthwash [Magic Mouthwash BLM] 10 ml PO QID PRN #240 ml 09/08/16 [Rx] Prochlorperazine Maleate [Compazine] 10 mg PO Q6H PRN #30 tablet 09/08/16 [Rx] Omeprazole [PriLOSEC] 20 mg PO BIDAC #60 cap 10/13/16 [Rx] Capecitabine [Xeloda] 2 tab PO BID #56 tablet 10/15/16 [Rx] Dronabinol [Marinol] 2.5 mg PO BIDLS #60 capsule 10/16/16 [Rx] Hydromorphone HCl [Dilaudid] 4 mg PO Q4H PRN #120 tablet 10/27/16 [Rx] Loperamide [Imodium] 2 mg PO Q6H PRN #30 capsule 11/05/16 [Rx] Hydrocortisone 2.5% CREAM [Cortaid] 1 applic TP BID #1 tube 11/11/16 [Rx] OxyCODONE ER (12 HR) [OxyCONTIN] 20 mg PO BID #30 tab.er.12h 11/11/16 [Rx] Ondansetron HCl [Zofran] 4 mg PO Q4HR PRN 11/13/16 [History] fentaNYL [Fentanyl] 100 mcg TD Q72H 11/13/16 [History] Clindamycin HCl 300 mg PO QID 7 Days 11/15/16 [Rx] Nicotine Patch [Nicoderm] 21 mg TD DAILY #30 11/15/16 [Rx] Allergies/Adverse Reactions: 3 Allergy/AdvReac Type Severity Reaction Status Date / Time Sulfa (Sulfonamide Allergy Hives Verified 11/13/16 14:44 Antibiotics) Date of admission: 11/13/16 21:43 Primary care physician: PCP NONE Consults: 11/14/16 11:40 Consult to Interventional Radiology [CONS] Stat Consulting Provider: Radiology Interventional Cols Reason for Consult: Drainage of perianal abcess Call Completed: Yes Anticipated date of discharge: 11/15/16 - Patient Status Disposition: Home, Self-Care Condition: Good Functional capacity at discharge: independent ambulation Overall status at discharge: patient is back to baseline - Discharge Instructions Follow Up With: NONE,PCP [Primary Care Provider] - Edilberto Jackman MD [Partnered Physician] - Emre Quintero MD [Partnered Physician] - Additional Instructions: - Continue all meds as per discharge instructions - We will hold chemotherapy until follow-up with oncology - Follow up with primary care physician and oncology - Advised to follow-up with Gen. surgery as outpatient - Return if symptoms worsen - Diet and Activity Activity: increase activity as tolerated Diet: advance to your usual diet Hospital course: Ms. Beyer is a 61 year old female with past medical history of recently diagnosed metastatic colon cancer status post resection, on chemotherapy, anxiety and depression. Patient presents to the ED with complaints of rectal pain. She was admitted for perirectal abscess. She was started on IV vancomycin and Zosyn. CT of the pelvis show gross lobular thickening of distal rectosigmoid colon with multiple loculated fluid collection in the soft tissue of the perineum with the largest pocket in the left perineum. General surgery evaluated the patient. Bedside needle decompression was performed. Patient tolerated the procedure well and this is given good relief. Patient is being discharged on clindamycin. Oncology is also evaluated patient and recommended close outpatient follow-up with primary oncologist. General surgery also advised outpatient follow-up. Patient was counseled about smoking cessation and started on a nicotine patch. She was on heparin subcutaneous for DVT prophylaxis. Patient is now tolerating oral diet well and ambulating well. She did not have any other acute events or complications during her stay in the hospital. Patient has been explained about her condition and plan of care in detail. She understood and agreed. No unanswered questions. Patient is being discharged in stable condition. She has been advised to follow up with her primary care physician and oncologist. Advised to return if symptoms worsen. Time spent discussing smoking cessation with patient: 3 to 10 minutes - Time Spent with Patient Total time spent providing and/or coordinating discharge services: Less than 30 minutes - Constitutional Vitals: Temp Pulse Resp BP Pulse Ox 98.4 F 83 16 153/81 99 11/15/16 11:06 11/15/16 11:06 11/15/16 11:06 11/15/16 11:06 11/15/16 11:06 General appearance: Present: cachectic, A&O X 3, pleasant, no acute distress, underweight, answers questions appropriately - Head Head exam: Present: atraumatic - Eye Eye exam: Present: EOMI - ENT ENT exam: Present: mucous membranes moist - Respiratory Respiratory exam: Present: CTAB. Absent: rales, rhonchi, wheezes, tachypnea - Cardiovascular Cardiovascular exam: Present: RRR, +S1, +S2 - GI/Abdominal GI/Abdominal exam: Present: soft. Absent: distended, firm, guarding, tenderness Additional comments: Ileostomy bag in place, site looks okay - Rectal Additional comments: Mild erythema present, induration present with decreased fluctuance, no drainage - Extremities Exam Extremities exam: Present: radial pulses palpable and symmetrical. Absent: cyanotic, pedal edema - Neurological Exam Neurological exam: Present: alert, oriented X3, no focal deficits. Absent: facial droop, speech deficit
[2016-11-15 15:12] VITALS: BP 132/73
[2016-11-15] MEDS ORDERED: Aminoglycoside Consult 1 EACH MC ONE (18:04)
== END 2016-11-15 18:05 | disposition home or self-care (01) | DRG 394 ==
LOC: EMEROO 15:23 → 3NENU 21:43
PROVIDERS: ADMIT Internal Medicine; ATTEND Internal Medicine

== ENCOUNTER 2017-05-25 12:00 | Observation (INO) ==
--- NOTE | 2017-05-25 12:29 | Emergency Department Note ---
START Narrative - START START: 62 year old female with history of colon cancer with radiation, presents with андрей-rectal abscess for 2 weeks, got worse for 4 days. Is on flagyl and augmentin from Oncologist. denied chill and fever. Physical exam: a 3x3 cm андрей- rectal abscess noted, erythema, warmth, tender to palpation. Start with labs, needs medical bed and further evaluation
[2017-05-25 14:20] LABS: Basophils # 0.1 K/mcL (0.0-0.2); Basophils % 0.6 %; Eosinophils # 0.1 K/mcL (0.0-0.6); Eosinophils % 0.8 %; Hematocrit 35.9 % (35.3-44.9); Hemoglobin 11.8 g/dL (11.5-15.4); Immature Granulocytes % 0.9 % (0-4); Lymphocytes # 0.5 K/mcL (0.6-4.6); Mean Corpuscular HGB Conc 32.9 g/dL (31.6-35.5); Mean Corpuscular Hemoglobin 34.3 pg (28.0-33.3); Mean Corpuscular Volume 104.4 fL (83.0-100.0); Mean Platelet Volume 9.7 fL (9.4-12.4); Monocytes # 0.4 K/mcL (0.0-1.3); Neutrophils # 8.9 K/mcL (1.6-8.9); Platelet Count 483 K/mcL (140-400); Red Blood Count 3.44 M/mcL (3.82-4.97); Red Cell Distribution Width 14.5 % (11.5-14.5); Segmented Neutrophils % 88.7 %
[2017-05-25 14:35] LABS: Alanine Aminotransferase 13 Units/L (7-52); Albumin 3.8 g/dL (3.5-5.7); Albumin/Globulin Ratio 1.2 (1.1-2.2); Alkaline Phosphatase 263 Units/L (34-104); Aspartate Amino Transferase 15 Units/L (13-39); BUN/Creatinine Ratio 25 (6-26); Bilirubin,Total 0.5 mg/dL (0.3-1.0); Blood Urea Nitrogen 13 mg/dL (8-23); Calcium 9.8 mg/dL (8.6-10.3); Carbon Dioxide 25 mEq/L (23-29); Chloride 103 mEq/L (98-107); Globulin 3.1 g/dL (2.4-3.5); Glucose 99 mg/dL (70-105); Osmolality,Calculated 278 (280-300); Potassium 4.5 mEq/L (3.5-5.1); Sodium 134 mEq/L (136-145); Total Protein 6.9 g/dL (6.4-8.9); eGFR For African Americans > 60 (> 60); eGFR For Non-African Americans > 60 (> 60)
--- NOTE | 2017-05-25 14:49 | Emergency Department Note ---
Disposition Clinical Impression: Fouzia-rectal abscess Disposition: Admitted As Inpatient Condition: Fair Referrals: NONE,PCP [Primary Care Provider] - Forms: ED Satisfaction Letter Time of Disposition: 20:29 General Adult HPI - General Chief complaint: ED Skin/Abscess/Foreign Body Stated complaint: Abscess Time Seen by Provider: 05/25/17 12:20 Source: patient, family Limitations: no limitations Nursing Notes Reviewed: Yes Vital Signs Reviewed: Yes - History of Present Illness HPI Narrative: Patient is a 62-year-old female who presents to [facility] ED with a chief complaint of fouzia-anal abscess. States this has been ongoing for the last 3 days and she feels a bulge when she sits down. Patient has been on Augmentin and Flagyl for the last 6 days. Patient was in radiology today and they took a look and sent her over here for evaluation. Denies any fevers or chills. No chest pain, difficulty breathing, abdominal pain, problems with urination or bowel movements. Patient does have a history of colorectal cancer and is being evaluated to start radiation oncology therapy. Patient is not on chemotherapy at this time. Onset (ago): day(s) Location: buttocks Radiation: non-radiation Pain Severity: moderate Pain Scale: 6 Quality: aching Consistency: constant Improves with: nothing Worsens with: nothing Associated symptoms: Reports: denies other symptoms. Denies: chest pain, cough , fever/chills, loss of appetite, nausea/vomiting, shortness of breath, weakness Treatments Prior to Arrival: none - Related Data Home Medications Medication Instructions Recorded Confirmed Amoxicillin/Clavulanate [Augmentin] 875 mg PO BID 05/25/17 05/25/17 Hydromorphone HCl [Dilaudid] 8 mg PO Q4H PRN 05/25/17 05/25/17 LORazepam [Ativan] 1 mg PO AD PRN 05/25/17 05/25/17 Morphine Sulfate SR (12 HR) [MS 30 mg PO BID 05/25/17 05/25/17 Contin] Omeprazole [PriLOSEC] 20 mg PO BIDAC PRN 05/25/17 05/25/17 metroNIDAZOLE [Flagyl] 500 mg PO TID 05/25/17 05/25/17 Previous Rx's Medication Instructions Recorded Magic Mouthwash [Magic Mouthwash 10 ml PO QID PRN #240 ml 09/08/16 BLM] Prochlorperazine Maleate 10 mg PO Q6H PRN #30 tablet 02/20/17 [Compazine] Ondansetron HCl [Zofran] 4 mg PO Q4HR PRN #30 tablet 04/02/17 Loperamide [Imodium] 2 mg PO Q6H PRN #30 capsule 04/15/17 Diphenoxylate/Atropine [Lomotil 1 each PO Q6H PRN 12 Days #40 04/30/17 2.5 mg/0.025 mg] tablet Allergies Allergy/AdvReac Type Severity Reaction Status Date / Time Sulfa (Sulfonamide Allergy Hives Verified 05/25/17 12:15 Antibiotics) All systems ED: reviewed and negative except as stated. Past Medical History - Past Medical History Attestation: Yes The following information was validated with the patient. Source: patient Medical history: Reports: cancer, GERD Surgical history: Reports: cancer surgery (Diverting ileostomy), other (Lung biopsy) Psychiatric history: Reports: anxiety, depression - Social History Smoking Status: Current every day smoker Smokeless Tobacco Status: No Alcohol use: Reports: none Drug use: Reports: none Physical Exam - General Limitations: no limitations General appearance: alert, in no apparent distress - Head Head exam: atraumatic, normocephalic, normal inspection - Eye Eye exam: Present: normal appearance, EOMI - ENT ENT exam: normal exam, normal oropharynx, mucous membranes moist - Neck Neck exam: Present: normal inspection, full ROM, trachea midline - Chest Chest inspection: Present: normal inspection, symmetric chest wall rise - Respiratory Respiratory exam: Present: normal lung sounds bilaterally - Cardiovascular Cardiovascular exam: Present: regular rate, normal rhythm, normal heart sounds - Abdominal Exam Abdominal exam: Present: soft, Non-Tender, normal bowel sounds. Absent: tenderness, distention, guarding, rebound, rigidity - Rectal Exam Rectal exam: Present: mass (erythema and edema to the R medial buttock adjacent to the anus) - Extremities Exam Extremities exam: Present: normal inspection, full ROM. Absent: tenderness, pedal edema - Neurological Exam Neurological exam: Present: alert, oriented X3 - Psychiatric Psychiatric exam: Present: normal affect, normal mood - Skin Skin exam: Present: warm, dry, intact, normal color Course Course Narrative: Patient seen and examined. Appears to be cellulitis versus abscess in the right medial buttock. We will get a CT abdomen and pelvis with IV contrast to evaluate the depth of this. Patient has been on oral antibiotics for the last 6 days. - Reevaluation(s) Reevaluation #1: CT shows perirectal abscess. Discussed with surgeon Dr. Nicholson who will come evaluate pt in ED. Would like Zosyn started. Time: 16:40 Reevaluation #2: Dr. Nicholson was at the bedside. He had been in surgery so there was a delay in him seeing her. He would like patient admitted to the hospitalist service. I discussed with hospitalist Dr. Amador who has accepted patient for admission. He would like a set of blood cultures drawn. This has been ordered. Time: 20:29 Vital Signs Temperature 97.9 F 05/25/17 12:11 Pulse Rate 80 05/25/17 12:11 Respiratory Rate 16 05/25/17 12:11 Blood Pressure 131/73 05/25/17 12:11 O2 Sat by Pulse Oximetry 99 05/25/17 12:11 Temperature 97.9 F 05/25/17 12:11 Pulse Rate 79 05/25/17 20:35 Respiratory Rate 18 05/25/17 20:35 Blood Pressure 118/82 05/25/17 20:35 O2 Sat by Pulse Oximetry 95 05/25/17 20:35 Oxygen Delivery Oxygen Delivery Room Air Medical Decision Making - Medical Records Medical records reviewed: Yes I reviewed the patient's medical records. - Lab Data Lab results reviewed: Yes I reviewed the patient's lab results. Result diagrams: 05/25/17 13:45 05/25/17 13:45 Lab Results 05/25/17 05/25/17 05/25/17 Range/Units 13:45 13:45 13:45 WBC 10.1 (4.3-11.1) K/mcL RBC 3.44 L (3.82-4.97) M/mcL Hgb 11.8 (11.5-15.4) g/dL Hct 35.9 (35.3-44.9) % MCV 104.4 H (83.0-100.0) fL MCH 34.3 H (28.0-33.3) pg MCHC 32.9 (31.6-35.5) g/dL RDW 14.5 (11.5-14.5) % Plt Count 483 H (140-400) K/mcL MPV 9.7 (9.4-12.4) fL Immature Gran % 0.9 (0-4) % Seg Neutrophils % 88.7 % Lymphocytes % 5.0 % Monocytes % 4.0 % Eosinophils % 0.8 % Basophils % 0.6 % Neutrophils # 8.9 (1.6-8.9) K/mcL Lymphocytes # 0.5 L (0.6-4.6) K/mcL Monocytes # 0.4 (0.0-1.3) K/mcL Eosinophils # 0.1 (0.0-0.6) K/mcL Basophils # 0.1 (0.0-0.2) K/mcL Sodium 134 L (136-145) mEq/L Potassium 4.5 (3.5-5.1) mEq/L Chloride 103 (98-107) mEq/L Carbon Dioxide 25 (23-29) mEq/L BUN 13 (8-23) mg/dL Creatinine 0.51 L (0.60-1.20) mg/dL Est GFR ( Amer) > 60 (> 60) Est GFR (Non-Af Amer) > 60 (> 60) BUN/Creatinine Ratio 25 (6-26) Glucose 99 (70-105) mg/dL Calculated Osmolality 278 L (280-300) Lactic Acid 0.6 (0.5-2.2) mmol/L Calcium 9.8 (8.6-10.3) mg/dL Total Bilirubin 0.5 (0.3-1.0) mg/dL AST 15 (13-39) Units/L ALT 13 (7-52) Units/L Alkaline Phosphatase 263 H (34-104) Units/L Serum Total Protein 6.9 (6.4-8.9) g/dL Albumin 3.8 (3.5-5.7) g/dL Globulin 3.1 (2.4-3.5) g/dL Albumin/Globulin Ratio 1.2 (1.1-2.2) - Radiology Data Radiology results reviewed: Yes I reviewed the patient's radiology results. Abdomen/Pelvis CT 05/25/17 14:32 IMPRESSION: Interval increase in size of loculated perirectal abscess extending from the medial right gluteal fold superiorly to the right perirectal soft tissues. Thickening of the sigmoid rectum is somewhat similar to prior exam. Partially imaged heterogeneous mass in the left lower lobe, not substantially changed along the imaged portion. D/ / 05/25/2017 16:11:44 Jamin Lomax / nicolle Interpreting Provider: Jamin Lomax Attestation Statement - Attestation Attestation: I, Leon Kumar DO, examined this patient [id number] and my medical decision-making was reviewed with Alison Chappell DO , Resident Physician. I agree with the documented findings, disposition and treatment plan as described except to the extent set forth below. Please see my progress notes for details. 62-year-old female presents emergency room with rectal pain. She has a history of a perirectal abscess. She is currently being evaluated and treated for colorectal cancer. Patient denies any fevers or chills nausea vomiting or diarrhea. Denies any headache vision changes chest pain or shortness of breath. Patient says that over the last several days a week she has had pain in her rectal area and multiple starting. This is similar to her last time and she had rectal abscess. She has been on antibiotics including Augmentin and Flagyl from her oncologist. There has not been any clinical resolution of the symptoms. Vital signs remained stable. Patient is otherwise clinically no distress outside of pain and discomfort in her lower pelvic area. CT imaging with IV contrast as well as anabolic regimen and screening labs will be ordered at this time. Patient will be provided with pain medication nausea medication as needed. Physical exam is otherwise unremarkable for pulmonary, cardiac, abdominal related pathology. Rectal examination will be completed after CT imaging is established. Resident physician as well as a medical student did evaluate the perirectal area prior to my coming to the room. For evaluation treatment course will be completed. See detailed documentation of the physical exam, medical intervention, medical decision-making and disposition and the resident physician's note. No critical care by this patient's treatment course at this time. 1600 Patient found to have perirectal abscess. Consultation placed out to on-call surgeon Dr. Nicholson. He will come down and evaluate the patient emergency room to determine whether it is an admission to the surgical services or to the hospitals. IV Zosyn was requested this time. Patient is otherwise clinically stable. 2000 Patient was evaluated by the surgeon Dr. Nicholson in the emergency room. Recommended admission to the hospitalist at this point and then determination of surgical intervention will be established. Patient was discussed with the hospitals. No other recommendations at this time. Patient has been admitted with appropriate antibiotic regimen and surgical consultation.
[2017-05-25] MEDS ORDERED: *HR* FentaNYL (PF) 100 MCG/2 ML VIAL IVP ONE ×2 (15:25→18:35)
[2017-05-25] MEDS ORDERED: Piperacillin/Tazobactam 3.375 GM in 0.9 % Sodium Chloride Mini Bag 100 ML IVPB ONE (16:33)
[2017-05-25] MEDS ORDERED: Ondansetron ODT 4 MG TAB.RAPDIS PO PRN (23:02)
[2017-05-25] MEDS ORDERED: *HR* LORazepam 1 MG TABLET PO PRN (23:02)
[2017-05-25] MEDS ORDERED: Magic Mouthwash 10 ML UD Cup PO PRN (23:02)
--- NOTE | 2017-05-25 23:17 | Internal Med History&Physical ---
Date of Encounter: 05/25/17 Time of Encounter: 23:00 Assessment and Plan (1) Perirectal abscess Current visit: Yes Status: Acute Patient with perirectal abscess. Recurrent episode. Surgery consulted. Will place patient on IV fluids and antibiotics. Pain control. Monitor vital signs closely. Follow wound cultures once abscess is drained. High risk for complications. (2) Cancer associated pain Current visit: Yes Status: Acute Continue home pain medication regimen with Dilaudid and morphine (3) Ileostomy in place Current visit: Yes Status: Acute Treat chronic diarrhea with Lomotil and Imodium that the patient uses at home. (4) Metastatic colorectal cancer Current visit: Yes Status: Acute Follow-up with oncology after discharge for further management. Internal Medicine - H&P: HPI Chief complaint: Perirectal pain Admitted From: Emergency Dept Plans for Post Hospital Care: Home History of present illness: Ms. Beyer is a 62 year old female patient with a history of colon cancer status post ileostomy presented to the ER with complaints of pain in her rectal region. It has been going on for 3 days. She was seen by her oncologist one week back for low-grade fever and was placed on antibiotics-Augmentin and Flagyl which she has been taking for the past 5 days. She denies any current fever or chills. Denies any nausea or vomiting. She has had an episode of perirectal abscess in the past which was drained here. She is not currently on any treatment for her colon cancer and has been treated with palliative chemotherapy. She is supposed to undergo abdominoperineal resection and pelvic exoneration in June. She may receive radiation treatment after that. Patient also has chronic diarrhea due to her ileostomy and takes Imodium and Lomotil regularly. In the ER she reported a pain in her gluteal region of 6 out of 10 in severity. It was nonradiating. Past Med Surg Social Fam HX - Past Medical History Attestation: Yes The following information was validated with the patient. Source: patient Medical history: cancer Psychiatric history: anxiety, depression - Past Surgical History Surgical History: cancer surgery, other - Social History Smoking Status: Current every day smoker Smokeless Tobacco Status: No Alcohol use: none Drug use: none - Family History Mother Living Status: Hx Family Cardiac Disorders: Yes Hx Family Respiratory Disorders: No Hx Family Cancer: Yes (Colon cancer) Hx Family GI Disorders: No Hx Family Endocrine Disorder: No Hx Family Neuromuscular Disorders: No Hx Family Neurologic Disorders: No Hx Family HEENT Disorders: No Hx Family Autoimmune Disorders: Yes Internal Medicine - H&P: Meds Magic Mouthwash [Magic Mouthwash BLM] 10 ml PO QID PRN #240 ml 09/08/16 [Rx] Prochlorperazine Maleate [Compazine] 10 mg PO Q6H PRN #30 tablet 02/20/17 [Rx] Ondansetron HCl [Zofran] 4 mg PO Q4HR PRN #30 tablet 04/02/17 [Rx] Loperamide [Imodium] 2 mg PO Q6H PRN #30 capsule 04/15/17 [Rx] Diphenoxylate/Atropine [Lomotil 2.5 mg/0.025 mg] 1 each PO Q6H PRN 12 Days #40 tablet 04/30/17 [Rx] Amoxicillin/Clavulanate [Augmentin] 875 mg PO BID 05/25/17 [History] Hydromorphone HCl [Dilaudid] 8 mg PO Q4H PRN 05/25/17 [History] LORazepam [Ativan] 1 mg PO AD PRN 05/25/17 [History] Morphine Sulfate SR (12 HR) [MS Contin] 30 mg PO BID 05/25/17 [History] Omeprazole [PriLOSEC] 20 mg PO BIDAC PRN 05/25/17 [History] metroNIDAZOLE [Flagyl] 500 mg PO TID 05/25/17 [History] 3 Allergy/AdvReac Type Severity Reaction Status Date / Time Sulfa (Sulfonamide Allergy Hives Verified 05/25/17 12:15 Antibiotics) All Systems PM: A 10-system review of systems was performed and is negative for pertinent findings except as documented above in the HPI. - Constitutional Constitutional: malaise, no chills, no fever(s), no night sweats - EENT Eyes: no change in vision, no discharge, no pain, no photophobia Ears: no ear discharge, no ear pain, no tinnitus Nose, mouth and throat: no dysphagia, no nasal discharge, no neck pain, no sore throat - Cardiovascular Cardiovascular ROS IM: no chest pain, no diaphoresis, no dyspnea, no lightheadedness, no palpitations, no syncope - Respiratory Respiratory: no cough, no dyspnea, no wheezing, no excessive phlegm production - Gastrointestinal Gastrointestinal: no abdominal pain, no diarrhea, no hematemesis, no hematochezia, no melena, no nausea, no vomiting Additional comments: Rectal pain - Genitourinary Genitourinary: no change in urinary stream, no dysuria, no flank pain, no hematuria - Musculoskeletal Musculoskeletal ROS IM: no numbness, no tingling - Integumentary Integumentary IM: no rash, no unusual bruising - Neurological Neurological ROS: no confusion, no convulsions, no focal weakness, no numbness, no tingling, no tremor(s) - Constitutional Vitals: Temp Pulse Resp BP Pulse Ox 98.1 F 75 15 163/72 100 05/25/17 22:19 05/25/17 22:19 05/25/17 22:19 05/25/17 22:19 05/25/17 22:19 General appearance: Present: mild distress, A&O X 3, answers questions appropriately - Eye Eye exam: Present: EOMI, PERRL, conjuntiva pink, sclera anicteric - Neck Neck exam general surgery: Present: supple, trachea midline. Absent: lymphadenopathy - Respiratory Respiratory exam: Present: CTAB. Absent: accessory muscle use, rales, rhonchi, wheezes - Cardiovascular Cardiovascular exam: Present: RRR, +S1, +S2. Absent: diastolic murmur, gallop, rubs, systolic murmur - GI/Abdominal GI/Abdominal exam: Present: normal bowel sounds, soft, no peritoneal signs. Absent: distended, tenderness Additional comments: Ileostomy with liquid stool in bag. Rectal exam deferred at this time due to pain. - Extremities Exam Extremities exam: Present: warm, radial pulses palpable and symmetrical. Absent : calf tenderness, cyanotic, pedal edema - Neurological Exam Neurological exam: Present: CN II-XII intact, oriented X3, no focal deficits. Absent: pronater drift, facial droop, speech deficit - Skin Skin exam: Present: dry, intact Internal Med - H&P Results - Labs CBC & Chem 7: 05/25/17 13:45 05/25/17 13:45 - Impressions Impressions Abdomen/Pelvis CT 05/25/17 14:32 IMPRESSION: Interval increase in size of loculated perirectal abscess extending from the medial right gluteal fold superiorly to the right perirectal soft tissues. Thickening of the sigmoid rectum is somewhat similar to prior exam. Partially imaged heterogeneous mass in the left lower lobe, not substantially changed along the imaged portion. D/ / 05/25/2017 16:11:44 Jamin Lomax / nicolle Interpreting Provider: Jamin Lomax
[2017-05-25] MEDS ORDERED: Ketorolac 15 MG/ML VIAL IVP PRN (23:25)
[2017-05-25] MEDS ORDERED: Naloxone 0.4 MG/ML INJ IVP PRN (23:25)
[2017-05-26] MEDS: *HR* HYDROmorphone 4 MG TABLET PO PRN ×5 (00:33→20:44)
--- NOTE | 2017-05-26 00:56 | General Surgery Consult Note ---
Date of Encounter: 05/26/17 Time of Encounter: 00:53 Assessment and Plan (1) Rectal abscess Current Visit: Yes Status: Acute 62F with stage IV rectal cancer s/p diversion and neoadjuvant therapy now with recurrent perianal/rectal abscess; Patient is otherwise HDS; concern is about whether or not she will heal if I performed an elaborate or formal procedure; In addition, with her surgery coming soon, there is a risk of destroying those tissue planes that would likely be needed; diet as tolerated IV abx plan for repeat bedside I&D cares per primary team History of Present Illness Consult date: 05/26/17 Reason for consult: other (anal pain) History of present illness: 62F with stage IV rectal cancer complicated by obstruction s/p diverting ileostomy and neoadjuvant therapy who now presents with several days of rectal/ anal pain. No associated fevers, chills, nausea or vomiting; Due to the severity of the pain the patient came to the ED for evaluation. CT scan was obtained, which was interpreted and reviewed by me which demonstrated two fluid collections by 6cm. patient states he has had a prior episode similar to this one which was drained at bedside. Surgery was consulted for surgical evaluation; Past Med Surg Social Fam HX - Past Medical History Medical history: cancer Psychiatric history: anxiety, depression - Past Surgical History Surgical History: cancer surgery, other - Social History Smoking Status: Current every day smoker Smokeless Tobacco Status: No Alcohol use: none Drug use: none - Family History Mother Living Status: Hx Family Cardiac Disorders: Yes Hx Family Respiratory Disorders: No Hx Family Cancer: Yes (Colon cancer) Hx Family GI Disorders: No Hx Family Endocrine Disorder: No Hx Family Neuromuscular Disorders: No Hx Family Neurologic Disorders: No Hx Family HEENT Disorders: No Hx Family Autoimmune Disorders: Yes Medications and Allergies Magic Mouthwash [Magic Mouthwash BLM] 10 ml PO QID PRN #240 ml 09/08/16 [Rx] Prochlorperazine Maleate [Compazine] 10 mg PO Q6H PRN #30 tablet 02/20/17 [Rx] Ondansetron HCl [Zofran] 4 mg PO Q4HR PRN #30 tablet 04/02/17 [Rx] Loperamide [Imodium] 2 mg PO Q6H PRN #30 capsule 04/15/17 [Rx] Diphenoxylate/Atropine [Lomotil 2.5 mg/0.025 mg] 1 each PO Q6H PRN 12 Days #40 tablet 04/30/17 [Rx] Amoxicillin/Clavulanate [Augmentin] 875 mg PO BID 05/25/17 [History] Hydromorphone HCl [Dilaudid] 8 mg PO Q4H PRN 05/25/17 [History] LORazepam [Ativan] 1 mg PO AD PRN 05/25/17 [History] Morphine Sulfate SR (12 HR) [MS Contin] 30 mg PO BID 05/25/17 [History] Omeprazole [PriLOSEC] 20 mg PO BIDAC PRN 05/25/17 [History] metroNIDAZOLE [Flagyl] 500 mg PO TID 05/25/17 [History] 3 Allergy/AdvReac Type Severity Reaction Status Date / Time Sulfa (Sulfonamide Allergy Hives Verified 05/25/17 12:15 Antibiotics) Review of Systems All systems PM: The remainder of the systems were reviewed and are negative General Surgery Exam Initial Vital Signs Temp Pulse Resp BP Pulse Ox 97.9 F 80 16 131/73 99 05/25/17 12:11 05/25/17 12:11 05/25/17 12:11 05/25/17 12:11 05/25/17 12:11 - General physical appearance no distress - Eyes normal ocular movement - ENT normocephalic - Neck no lymphadectomy - Respiratory normal expansion, normal respiratory effort - Cardiovascular Cardiovascular exam: Present: RRR - Abdomen Abdomen general surgery: Present: soft, non tender - Rectum Rectum: Present: other (ileostomy; mild erythema along R glute) - Integumentary Integumentary general surgery: Present: warm and dry - Neurologic Present: CN 2-12 grossly intact - Psychiatric Psychiatric general surgery: Present: A&Ox3 Exam Initial Vital Signs Temp Pulse Resp BP Pulse Ox 97.9 F 80 16 131/73 99 05/25/17 12:11 05/25/17 12:11 05/25/17 12:11 05/25/17 12:11 05/25/17 12:11 Results - Labs 05/25/17 13:45 05/25/17 13:45 Abnormal lab results RBC 3.44 M/mcL (3.82-4.97) L 05/25/17 13:45 MCV 104.4 fL (83.0-100.0) H 05/25/17 13:45 MCH 34.3 pg (28.0-33.3) H 05/25/17 13:45 Plt Count 483 K/mcL (140-400) H 05/25/17 13:45 Lymphocytes # 0.5 K/mcL (0.6-4.6) L 05/25/17 13:45 Sodium 134 mEq/L (136-145) L 05/25/17 13:45 Creatinine 0.51 mg/dL (0.60-1.20) L 05/25/17 13:45 Calculated Osmolality 278 (280-300) L 05/25/17 13:45 Alkaline Phosphatase 263 Units/L (34-104) H 05/25/17 13:45 All other labs normal. - Imaging CT scan - abdomen: report reviewed, image reviewed CT scan - pelvis: report reviewed, image reviewed Consult Discharge Plan - Plan Referrals: NONE,PCP [Primary Care Provider] -
[2017-05-26] MEDS ORDERED: Piperacillin/Tazobactam 3.375 GM in 0.9 % Sodium Chloride Mini Bag 100 ML IVPB SCH (01:00)
[2017-05-26] MEDS: Piperacillin/Tazobactam 3.375 GM in 0.9 % Sodium Chloride Mini Bag 100 ML IVPB SCH ×3 (03:47→18:22)
[2017-05-26] MEDS: *HR* Heparin 5,000 UNIT/ML VIAL SQ SCH ×2 (05:04→17:36)
[2017-05-26 05:42] LABS: Basophils # 0.1 K/mcL (0.0-0.2); Eosinophils # 0.2 K/mcL (0.0-0.6); Eosinophils % 2.4 %; Hemoglobin 13.2 g/dL (11.5-15.4); Immature Granulocytes % 0.8 % (0-4); Lymphocytes % 11.2 %; Mean Corpuscular HGB Conc 33.8 g/dL (31.6-35.5); Mean Corpuscular Hemoglobin 34.7 pg (28.0-33.3); Mean Corpuscular Volume 102.6 fL (83.0-100.0); Mean Platelet Volume 9.3 fL (9.4-12.4); Monocytes # 0.5 K/mcL (0.0-1.3); Monocytes % 5.8 %; Neutrophils # 7.2 K/mcL (1.6-8.9); Platelet Count 535 K/mcL (140-400); Red Cell Distribution Width 14.6 % (11.5-14.5); Segmented Neutrophils % 78.8 %
[2017-05-26 05:59] LABS: BUN/Creatinine Ratio 25 (6-26); Blood Urea Nitrogen 15 mg/dL (8-23); Calcium 9.8 mg/dL (8.6-10.3); Carbon Dioxide 23 mEq/L (23-29); Chloride 104 mEq/L (98-107); Glucose 93 mg/dL (70-105); Osmolality,Calculated 283 (280-300); Potassium 3.9 mEq/L (3.5-5.1); Sodium 136 mEq/L (136-145); eGFR For African Americans > 60 (> 60); eGFR For Non-African Americans > 60 (> 60)
[2017-05-26] MEDS: *HR* Morphine Sulfate SR (12 HR) 30 MG TABLET.ER PO SCH ×2 (08:03→20:44)
[2017-05-26] MEDS: Diphenoxylate/Atropine 1 TAB TABLET PO PRN ×3 (08:06→20:44)
[2017-05-26] MEDS ORDERED: Tdap (ADACEL) Vaccine 0.5 ML IM ONE (14:25)
[2017-05-26] MEDS ORDERED: Lidocaine 1% 20 ML MDV INFILT ONE (14:31)
--- NOTE | 2017-05-26 15:42 | General Surgery Procedure Note ---
Date of procedure: 05/26/17 Pre-op diagnosis: Right gluteal abscess Post-op diagnosis: same Procedure: After informed consent was obtained and timeout completed, the patient's right gluteal fold was prepped and draped. The area was localized with 6 ML's of 1% lidocaine. After achieving appropriate localization, a 2 cm incision was made over the most fluctuaant area using a size 11 blade. There was immediate return of blood tinged drainage without obvious purulence. The cavity was further opened and decompressed using hemostats. Gram stain, aerobic, and anaerobic cultures were obtained. The cavity was packed with 1/4 inch plain gauze and covered with a dry dressing. Complications: No immediate complications Anesthesia: local Surgeon: Rossana Germain Complaint Manager: Ale Jones Estimated blood loss (cc): 1 Pathology: other (Aerobic culture, anaerobic culture, Gram stain) Condition: stable Disposition: no change
--- NOTE | 2017-05-26 17:55 | Internal Med Progress Note ---
Date of Encounter: 05/26/17 Time of Encounter: 10:30 - Assessment and plan (1) Rectal abscess Current Visit: Yes Status: Acute Assessment and plan: Pt was treated outpt with Augmentin and Flagyl po x 5 days without improvement. Recurrent episode. Pt admitted for I and D by Dr. Nicholson and IV antibiotics. Continue pain control and IV Vancomycin and Zosyn. Wound cultures obtained during procedure, results pending. Surgery following, I appreciate their recommendations. Abdomen/Pelvis CT 05/25/17 14:32 IMPRESSION: Interval increase in size of loculated perirectal abscess extending from the medial right gluteal fold superiorly to the right perirectal soft tissues. Thickening of the sigmoid rectum is somewhat similar to prior exam. Partially imaged heterogeneous mass in the left lower lobe, not substantially changed along the imaged portion. D/ / 05/25/2017 16:11:44 Jamin Lomax / nicolle Interpreting Provider: Jamin Lomax (2) Cancer associated pain Current Visit: Yes Status: Acute Assessment and plan: Continue home medications, Morphine and Dilaudid. Pt states that pain is adequately controlled after medication change this a.m. (3) Ileostomy in place Current Visit: Yes Status: Chronic Assessment and plan: Per pt history. Continue home doses of Lomotil and Imodium. (4) Metastatic colorectal cancer Current Visit: Yes Status: Acute Assessment and plan: Pt follows with [facility], follow outpatient after discharge. (5) DVT prophylaxis Current Visit: Yes Status: Acute Assessment and plan: Heparin SQ BID ordered by admitter. - Time Spent With Patient less than 15 minutes - Subjective Interval history: Patient was seen and assessed at 10:30 AM. at bedside. Patient reports that she was treated for a perirectal abscess patient with Augmentin and Flagyl for 5 days became worse. She was admitted for IV antibiotics and surgical consult. Patient reports that initially, her routine pain medications were not ordered, she states now that her pain is under better control.Pt reports decreased appetite but denies n/v/d, abdominal pain. She denies chest pain, SOB, diaphoresis, headache, dizziness. Pt is also aware that she will not be discharged today. - Constitutional Vitals: Temp Pulse Resp BP Pulse Ox 98.2 F 65 14 93/53 98 05/26/17 14:15 05/26/17 14:15 05/26/17 14:15 05/26/17 14:15 05/26/17 14:15 General appearance: Present: cooperative, mild distress, A&O X 3, pleasant, answers questions appropriately - Head Head exam: Present: atraumatic, normal inspection, normocephalic - Eye Eye exam: Present: normal appearance, conjuntiva pink, sclera anicteric - Neck Neck exam general surgery: Present: normal inspection, supple, trachea midline. Absent: lymphadenopathy, tenderness - Respiratory Respiratory exam: Present: CTAB. Absent: accessory muscle use, chest wall tenderness, rales, respiratory distress, rhonchi, wheezes - Cardiovascular Cardiovascular exam: Present: RRR, +S1, +S2. Absent: diastolic murmur, gallop, rubs, systolic murmur - GI/Abdominal GI/Abdominal exam: Present: normal bowel sounds, soft. Absent: distended, hepatomegaly, tenderness - Extremities Exam Extremities exam: Present: normal capillary refill, normal inspection, warm, radial pulses palpable and symmetrical. Absent: calf tenderness, cyanotic, pedal edema, tenderness - Neurological Exam Neurological exam: Present: alert, oriented X3, no focal deficits. Absent: facial droop, speech deficit - Skin Skin exam: Present: dry, intact, normal color, warm. Absent: rash Internal Medicine: Result - Labs CBC & Chem 7: 05/26/17 05:25 05/26/17 05:25 Labs: Short CBC 05/26/17 Range/Units 05:25 WBC 9.1 (4.3-11.1) K/mcL Hgb 13.2 (11.5-15.4) g/dL Hct 39.0 (35.3-44.9) % Plt Count 535 H (140-400) K/mcL Neutrophils # 7.2 (1.6-8.9) K/mcL BMP 05/26/17 05:25 Sodium 136 Potassium 3.9 Chloride 104 Carbon Dioxide 23 BUN 15 Creatinine 0.60 Glucose 93 Calcium 9.8 Consult Discharge Plan - Plan Referrals: NONE,PCP [Primary Care Provider] -
[2017-05-26] MEDS ORDERED: Melatonin 3 MG TABLET PO PRN (21:28)
[2017-05-27] MEDS: *HR* HYDROmorphone 4 MG TABLET PO PRN ×4 (00:36→12:14)
[2017-05-27] MEDS: Piperacillin/Tazobactam 3.375 GM in 0.9 % Sodium Chloride Mini Bag 100 ML IVPB SCH ×2 (04:22→11:01)
[2017-05-27] MEDS: Diphenoxylate/Atropine 1 TAB TABLET PO PRN ×2 (04:22→08:19)
[2017-05-27 05:58] LABS: Basophils # 0.1 K/mcL (0.0-0.2); Eosinophils # 0.3 K/mcL (0.0-0.6); Monocytes # 0.5 K/mcL (0.0-1.3); Red Blood Count 3.43 M/mcL (3.82-4.97); Red Cell Distribution Width 14.6 % (11.5-14.5)
[2017-05-27] MEDS: *HR* Heparin 5,000 UNIT/ML VIAL SQ SCH (06:22)
[2017-05-27 06:28] LABS: BUN/Creatinine Ratio 33 (6-26); Blood Urea Nitrogen 20 mg/dL (8-23); Calcium 9.4 mg/dL (8.6-10.3); Carbon Dioxide 22 mEq/L (23-29); Chloride 108 mEq/L (98-107); Glucose 82 mg/dL (70-105); Osmolality,Calculated 284 (280-300); Potassium 4.3 mEq/L (3.5-5.1); Sodium 136 mEq/L (136-145); eGFR For African Americans > 60 (> 60); eGFR For Non-African Americans > 60 (> 60)
[2017-05-27 06:55] LABS: Basophils % 0.9 %; Eosinophils % 3.5 %; Hematocrit 36.3 % (35.3-44.9); Hemoglobin 11.9 g/dL (11.5-15.4); Immature Granulocytes % 0.9 % (0-4); Lymphocytes # 1.1 K/mcL (0.6-4.6); Lymphocytes % 13.5 %; Mean Corpuscular HGB Conc 32.8 g/dL (31.6-35.5); Mean Corpuscular Hemoglobin 34.7 pg (28.0-33.3); Mean Corpuscular Volume 105.8 fL (83.0-100.0); Mean Platelet Volume 9.6 fL (9.4-12.4); Monocytes % 6.4 %; Platelet Count 495 K/mcL (140-400); Segmented Neutrophils % 74.8 %
[2017-05-27] MEDS: *HR* Morphine Sulfate SR (12 HR) 30 MG TABLET.ER PO SCH (07:42)
[2017-05-27 10:33] VITALS: BP 95/57
--- NOTE | 2017-05-27 13:13 | General Surgery Progress Note ---
Date of Encounter: 05/27/17 Time of Encounter: 12:45 - Assessment and Plan (1) Perirectal abscess Current Visit: Yes Status: Acute S/P I&D 05/26/17- no abscess identified Suspect that the patient's symptoms are a result of her tumor burden Gram stain negative for bacteria Remove packing and dry dressing applied Patient instructed to cleanse the area with soap and water daily and prn if soiled and cover with dry dressing as long at it is draining F/U as needed in the surgery office Subjective Patient reports: no new complaints, still having pain, voiding w/o difficulty, afebrile Objective Vital Signs - Last 8 Hours Temp Pulse Resp BP Pulse Ox 05/27/17 10:28 97.9 F 51 16 95/57 98 05/27/17 06:41 97.9 F 68 14 107/60 96 Intake and Output 05/26/17 05/27/17 05/27/17 23:59 07:59 15:59 Intake Total 240 / 240 350 / 350 340 / 340 Output Total 0 / 0 0 / 0 Balance 240 / 240 350 / 350 340 / 340 Intake: IV Fluids 350 / 350 100 / 100 Zosyn 3.375 GM In 0.9 % Sodium 100 / 100 100 / 100 Chloride (Mini-Bag +) 100 ML @ 25 mls/hr IVPB Q8H DENIZ Rx#: [id number] Vancocin 750 MG In 0.9 % Sodium 250 / 250 Chloride 250 ML @ 250 mls/hr IVPB Q12H DENIZ Rx#:[id number] Oral 240 / 240 0 / 0 240 / 240 Output: Urine 0 / 0 0 / 0 Stool 0 / 0 Other: Meal Dinner Breakfast Percent of Meal Consumed 5% 50% # Voids 0 1 Weight 41.957 kg Patient Weight 05/27/17 23:59 Weight 41.957 kg - General physical appearance well developed, moderate pain, cachectic, chronically ill - Eyes normal ocular movement - ENT normal mucosa, atraumatic, normocephalic - Neck Neck exam: trachea midline - Respiratory normal respiratory effort - Cardiovascular Cardiovascular exam: Present: bradycardia - Abdomen Abdomen: Present: bowel sounds present, soft, non tender - Incision Incision: Present: serosanguinous (scant amount), open - Neurologic CN 2-12 grossly intact - Psychiatric oriented to time, oriented to person, oriented to place, speech is normal, memory intact - Labs 05/27/17 04:43 05/27/17 04:43 Diabetes panel 05/27/17 Range/Units 04:43 Sodium 136 (136-145) mEq/L Potassium 4.3 (3.5-5.1) mEq/L Chloride 108 H (98-107) mEq/L Carbon Dioxide 22 L (23-29) mEq/L BUN 20 (8-23) mg/dL Creatinine 0.60 (0.60-1.20) mg/dL Glucose 82 (70-105) mg/dL Calcium 9.4 (8.6-10.3) mg/dL Calcium panel 05/27/17 Range/Units 04:43 Calcium 9.4 (8.6-10.3) mg/dL Pituitary panel 05/27/17 Range/Units 04:43 Sodium 136 (136-145) mEq/L Potassium 4.3 (3.5-5.1) mEq/L Chloride 108 H (98-107) mEq/L Carbon Dioxide 22 L (23-29) mEq/L BUN 20 (8-23) mg/dL Creatinine 0.60 (0.60-1.20) mg/dL Glucose 82 (70-105) mg/dL Calcium 9.4 (8.6-10.3) mg/dL Adrenal panel 05/27/17 Range/Units 04:43 Sodium 136 (136-145) mEq/L Potassium 4.3 (3.5-5.1) mEq/L Chloride 108 H (98-107) mEq/L Carbon Dioxide 22 L (23-29) mEq/L BUN 20 (8-23) mg/dL Creatinine 0.60 (0.60-1.20) mg/dL Glucose 82 (70-105) mg/dL Calcium 9.4 (8.6-10.3) mg/dL Consult Discharge Plan - Plan Additional Instructions: Please follow up with your PCP in the next 7-10 days for a recheck. Return to the ER as needed for any other problems or concerns, or if your condition worsens. Take your medications as directed, return to your normal diet and activities. Referrals: NONE,PCP [Primary Care Provider] -
--- NOTE | 2017-05-27 13:13 | Discharge Summary ---
Orders not resulted at time of discharge: Pending orders 05/26/17 15:45 Culture,Anaerobic [RM] Stat Culture,Wound [RM] Stat Date of Encounter: 05/27/17 Time of Encounter: 10:45 - Discharge Diagnosis (1) Rectal abscess Priority: Primary Status: Acute Comments: Pt was treated outpt with Augmentin and Flagyl po x 5 days without improvement. Recurrent episode. Pt admitted for I and D by Dr. Nicholson and IV antibiotics. Continue pain control and IV Vancomycin and Zosyn, final gram stain negative for bacteria and white blood cells. Surgery following, I appreciate their recommendations. They have signed off and are removing the packing prior to discharge and will follow up with pt after discharge. No antibiotics on discharge Abdomen/Pelvis CT 05/25/17 14:32 IMPRESSION: Interval increase in size of loculated perirectal abscess extending from the medial right gluteal fold superiorly to the right perirectal soft tissues. Thickening of the sigmoid rectum is somewhat similar to prior exam. Partially imaged heterogeneous mass in the left lower lobe, not substantially changed along the imaged portion. D/ / 05/25/2017 16:11:44 Jamin Lomax / nicolle Interpreting Provider: Jamin Lomax (2) Cancer associated pain Priority: Secondary Status: Acute Comments: Continue home medications. Patient reports the pain has been well controlled. (3) Ileostomy in place Priority: Secondary Status: Chronic Comments: Per history. Patient should continue home doses of Lomotil and Imodium. (4) Metastatic colorectal cancer Priority: Secondary Status: Acute Comments: Follow with [facility] after discharge. Patient has upcoming surgery in June. (5) DVT prophylaxis Priority: Secondary Status: Acute Comments: Heparin subcutaneous twice daily. Hospital course: Ms. Beyer is a 62 year old female with past medical history of metastatic colorectal cancer, ostomy, recurrent perirectal abscess, presented to the emergency room with recurrent pain and worsening rectal abscess. Patient been treated with Flagyl and amoxicillin outpatient for 5 days without improvement. She had an I&D by surgery yesterday, final Gram stain was negative for bacteria or white cells. I spoke with surgery in PT who agrees that this was not infection but was tumor load. Packing will be removed and patient will be appropriate and stable for discharge. She reports that her pain is well- controlled with current medications. Labs are within normal limits. Patient has upcoming surgery in June. Patient should follow up closely with primary care and return if worsening condition. Discharge discussed with: patient, family - Time Spent with Patient Total time spent providing and/or coordinating discharge services: Less than 30 minutes - Discharge Medications Home Medications: Magic Mouthwash [Magic Mouthwash BLM] 10 ml PO QID PRN #240 ml 09/08/16 [Rx] Prochlorperazine Maleate [Compazine] 10 mg PO Q6H PRN #30 tablet 02/20/17 [Rx] Ondansetron HCl [Zofran] 4 mg PO Q4HR PRN #30 tablet 04/02/17 [Rx] Loperamide [Imodium] 2 mg PO Q6H PRN #30 capsule 04/15/17 [Rx] Diphenoxylate/Atropine [Lomotil 2.5 mg/0.025 mg] 1 each PO Q6H PRN 12 Days #40 tablet 04/30/17 [Rx] Hydromorphone HCl [Dilaudid] 8 mg PO Q4H PRN 05/25/17 [History] LORazepam [Ativan] 1 mg PO AD PRN 05/25/17 [History] Morphine Sulfate SR (12 HR) [MS Contin] 30 mg PO BID 05/25/17 [History] Omeprazole [PriLOSEC] 20 mg PO BIDAC PRN 05/25/17 [History] Magic Mouthwash [Magic Mouthwash BLM] 10 ml PO QID PRN #240 ml 05/26/17 [Rx] Omeprazole [PriLOSEC] 20 mg PO DAILY #30 cap 05/26/17 [Rx] Ondansetron HCl [Zofran] 4 mg PO Q4H PRN #30 tablet 05/26/17 [Rx] Prochlorperazine Maleate [Compazine] 10 mg PO Q6H PRN #30 tablet 05/26/17 [Rx] Allergies/Adverse Reactions: 3 Allergy/AdvReac Type Severity Reaction Status Date / Time Sulfa (Sulfonamide Allergy Hives Verified 05/25/17 12:15 Antibiotics) Date of admission: 05/25/17 21:42 Primary care physician: PCP NONE Consults: 05/25/17 22:51 Consult to Nutrition [CONS] Stat Comment: Consulting Provider: NUTRITION Reason for Dietary Consult: MST Score 05/25/17 23:29 Consult to Surgery [CONS] Routine Consulting Provider: Surgery [facility] Reason for Consult: Rectal abscess; Called by ED Time Notified: 23:29 Call Completed: Yes Discharging clinician: Penny Calvert Anticipated date of discharge: 05/27/17 - Constitutional Vitals: Temp Pulse Resp BP Pulse Ox 97.9 F 51 16 95/57 98 05/27/17 10:28 05/27/17 10:28 05/27/17 10:28 05/27/17 10:28 05/27/17 10:28 General appearance: Present: cooperative, mild distress, A&O X 3, pleasant, no acute distress, answers questions appropriately - Head Head exam: Present: atraumatic, normal inspection, normocephalic - Eye Eye exam: Present: normal appearance, conjuntiva pink, sclera anicteric - Neck Neck exam general surgery: Present: supple, trachea midline. Absent: lymphadenopathy - Respiratory Respiratory exam: Present: CTAB. Absent: accessory muscle use, chest wall tenderness, rales, respiratory distress, rhonchi, wheezes - Cardiovascular Cardiovascular exam: Present: RRR, +S1, +S2. Absent: diastolic murmur, gallop, rubs, systolic murmur - GI/Abdominal GI/Abdominal exam: Present: normal bowel sounds, soft. Absent: distended, hepatomegaly, tenderness Additional comments: Ileostomy present. - Extremities Exam Extremities exam: Present: normal capillary refill, normal inspection, warm, radial pulses palpable and symmetrical. Absent: calf tenderness, cyanotic, pedal edema, tenderness - Neurological Exam Neurological exam: Present: alert, oriented X3, no focal deficits. Absent: altered, facial droop, speech deficit - Skin Skin exam: Present: dry, intact, normal color, warm. Absent: rash - Patient Status Disposition: Home, Self-Care Condition: Fair Functional capacity at discharge: uses cane/walker Overall status at discharge: patient is not back to baseline - Discharge Instructions Follow Up With: NONE,PCP [Primary Care Provider] - Additional Instructions: Please follow up with your PCP in the next 7-10 days for a recheck. Return to the ER as needed for any other problems or concerns, or if your condition worsens. Take your medications as directed, return to your normal diet and activities. - Diet and Activity Activity: increase activity as tolerated Diet: advance to your usual diet
[2017-05-27] MEDS ORDERED: Aminoglycoside Consult 1 EACH MC ONE (14:45)
--- NOTE | 2017-05-28 09:20 | Oncology Inp Consult Note ---
Date of Encounter: 05/26/17 Time of Encounter: 09:17 Assessment and Plan (1) Perirectal abscess Status: Acute Assessment and plan: Limited incision and drainage showed serosanguineous fluid. Bacterial stains negative. Wound packing removed and she is improving (2) Metastatic colorectal cancer Status: Acute Assessment and plan: She completed neoadjuvant chemotherapy for metastatic colorectal cancer. She had good improvement with reduction in CEA to 6. Also symptomatically better from the rectal lesion She has isolated left lung metastasis which has grown. I had a a long discussion with Dr. Camryn Nunez at [facility] Pelvic exoneration surgery has been postponed 06/23/2017 Meanwhile we want to take care of the left lung lesion. Dr. Dr. Camryn Nunez wants to make sure the left lung lesion is metastatic from colan and not lung primary. Reviewed the pathology report from the left lung nodule biopsy from [facility] 08/14/2016. The specimen was positive for CK 20 and CD X2 consistent with colon primary. She may not be a candidate for lobectomy for different reasons. The mass may be extending through the fissure which make lobectomy hard and she may end up with left pneumonectomy Also doing a lobectomy may postpone her pelvic exoneration surgery She met with Dr. Gentile radiation oncology. We discussed radiation/SBR T to the left lung radiation. That is very feasible. But if she had SBR T she may not be a candidate for future lobectomy. Dr. Dr. Camryn Nunez is going to discuss this further with thoracic surgery at [facility]. If necessary we will send her that for leukopenia and and further treatment discussion on that - Data of Consult Patient: known to practice within the last 3 years Consult date: 05/26/17 Requesting Physician: Lesley Juarez Primary Care Provider: PCP NONE Family Provider: History of present illness: Admitted with pelvic fluid collection. CT scan showed about 2.5 cm fluid collection right side of rectum with extension not linear fashion towards the skin. Incision and drainage done by surgery about 2 cm incision. Serosanguineous fluid drained and bacterial stains negative. Wound packing removed dressing applied. Oncological history Diagnosis: Metastatic colorectal cancer. Large pelvic primary with large left lung mass. Stage IV History Progressive abdominal pain constipation and weight loss. She had a CT scans at [facility] which I do not have the report She was transferred to [facility] under your care. Sigmoidoscopy revealing 2 separate masses involving rectum and sigmoid colon. She also has left lower lobe lung mass. Pathology sigmoid colon mass at 15 cm and rectal mass at 5 cm from anal verge both showing at least intramucosal carcinoma possibility of invasive carcinoma. CK 20 and CDX-2 positive CK 7 negative on 08/12/2016 08/12/2016 - Left lower lobe lung mass EBUS biopsy- metastatic adenocarcinoma consistent with colorectal primary. CK 20 positive's CDX2 positive and TTF-1 negative Lab Anemia hemoglobin 7.5 on 08/09/2016. She received 4 units of packed RBC transfusion at [place] Her hemoglobin improved to 11 but dropped again with fresh rectal bleed. Finally he does come up to 13 Rest of CBC unremarkable Liver enzymes normal creatinine 0.2-0.3 Glucose around 100 Imaging-[facility] 1. MRI pelvis with and without contrast 08/15/2016 compared to 08/09/2016 CT abdomen from [facility] Jonny centimeters segment of irregular wall thickening rectosigmoid colon. Tethering of surrounding small bowel loops causing small bowel obstruction. Overall mass exerts anterior displacement of uterus and narrowing of the base of the bladder with urinary distention 2. MRI abdomen with and without contrast 08/15/2016 no hepatic metastasis. Mildly prominent aortocaval lymph node 6 mm. Small left and right pleural effusion 3. MRI brain with and without contrast on 08/15/2016 negative for metastasis. No evidence of acute ischemia 4. PET scan on 09/03/16 shows large colonic mass within the pelvis is intensely hypermetabolic with maximum SUV of 15.1. intensely hypermetabolic left lower lobe pulmonary mass SUV 10. Size out 6 cm Surgery Diagnostic laparoscopy with lysis of adhesions on 08/18/2016.. Small bowel resection with end ileostomy. The resected small bowel did not show any carcinoma Palliative chemotherapy Cycle repeated every 3 weeks Oxaliplatin 85 mg/m day 1 Xeloda 1 g by mouth twice a day day one through 14 of 21 day cycle Avastin 7.5 mg per KG . Actually she had only 2 doses since 01/26/2017. Initially not given due to GI bleed and last cycle not given due to ration for surgery Cycle 8 of 8 scheduled on 04/09/2017 She was evaluated by Dr. Sheeba Nunez on at [facility]. The plan is to do pelvic exoneration after 8 cycles of chemotherapy. She continued to respond well. CEA has decreased to 5 on 03/10/2070 Palliative radiation For GI bleed. Radiation to the pelvis from 10/16/2016 to 11/01/2016 Further imaging MRI pelvis 04/29/2017 showed sigmoid colon cancer extending posteriorly . Also rectal cancer with a conglomerate mass that proximal sigmoid colon cancer extending to posterior vaginal fornix and also pararectal tissue T4. N0 by MRI CT chest abdomen and pelvis with IV contrast 05/12/2017 showed slight increase in the left lower lobe lung mass to 5 x 3.8 cm from 4.8 x 3.5 cm he had no new lesions Also mild increase in the fluid collection in the pelvis Past medical hx: No history of heart disease Surgical hx: Sigmoidoscopy-08/2016 Bowel surgery-08/2016 Colostomy-08/2016 Family hx: Mother- Colon Cancer in her early 80's Sister-Colon Cancer before age 50 Brother-MO x2 Father-MO, heart disease 2 daughters age 41 and age 38. Older daughter had a HEENT signs of colitis and had colonoscopy already. Advised to get the other daughter colonoscopy at age 40 Allergies sulfa Social hx: Former smoker-quit 07/2016, had smoked for last 45 years Drinks socially. Family mixed drinks a week. 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 - Consult Narrative History of present illness: Ms. Beyer is a 62 year old female Past Med Surg Social Fam HX - Past Medical History Medical history: cancer Psychiatric history: anxiety, depression - Past Surgical History Surgical History: cancer surgery, other - Social History Smoking Status: Current every day smoker Smokeless Tobacco Status: No Alcohol use: none Drug use: none - Family History Mother Living Status: Hx Family Cardiac Disorders: Yes Hx Family Respiratory Disorders: No Hx Family Cancer: Yes (Colon cancer) Hx Family GI Disorders: No Hx Family Endocrine Disorder: No Hx Family Neuromuscular Disorders: No Hx Family Neurologic Disorders: No Hx Family HEENT Disorders: No Hx Family Autoimmune Disorders: Yes Medications and Allergies Magic Mouthwash [Magic Mouthwash BLM] 10 ml PO QID PRN #240 ml 09/08/16 [Rx] Prochlorperazine Maleate [Compazine] 10 mg PO Q6H PRN #30 tablet 02/20/17 [Rx] Ondansetron HCl [Zofran] 4 mg PO Q4HR PRN #30 tablet 04/02/17 [Rx] Loperamide [Imodium] 2 mg PO Q6H PRN #30 capsule 04/15/17 [Rx] Diphenoxylate/Atropine [Lomotil 2.5 mg/0.025 mg] 1 each PO Q6H PRN 12 Days #40 tablet 04/30/17 [Rx] Hydromorphone HCl [Dilaudid] 8 mg PO Q4H PRN 05/25/17 [History] LORazepam [Ativan] 1 mg PO AD PRN 05/25/17 [History] Morphine Sulfate SR (12 HR) [MS Contin] 30 mg PO BID 05/25/17 [History] Omeprazole [PriLOSEC] 20 mg PO BIDAC PRN 05/25/17 [History] Magic Mouthwash [Magic Mouthwash BLM] 10 ml PO QID PRN #240 ml 05/26/17 [Rx] Omeprazole [PriLOSEC] 20 mg PO DAILY #30 cap 05/26/17 [Rx] Ondansetron HCl [Zofran] 4 mg PO Q4H PRN #30 tablet 05/26/17 [Rx] Prochlorperazine Maleate [Compazine] 10 mg PO Q6H PRN #30 tablet 05/26/17 [Rx] 3 Allergy/AdvReac Type Severity Reaction Status Date / Time Sulfa (Sulfonamide Allergy Hives Verified 05/25/17 12:15 Antibiotics) Review of systems: Pain in the perineal area is the main complaint. Diarrhea from the colostomy bag which yenny improved Oncology - Exam - Constitutional Vitals: Temp Pulse Resp BP Pulse Ox 97.9 F 51 16 95/57 98 05/27/17 10:28 05/27/17 10:28 05/27/17 10:28 05/27/17 10:28 05/27/17 10:28 Exam: GENERAL: Alert and oriented, well appearing. Mental Status: Affect appropriate for circumstances HEENT: Sclerae anicteric. No mucositis or thrush. No other oral or pharyngeal lesions or erythema. Skin: No rashes or petechiae. No evidence of skin malignancy Lymph nodes: No cervical, supraclavicular, axillary, or inguinal adenopathy. Lungs: Air entry normal with normal breath sounds. No rhonchi or wheezing Cardiovascular: Regular rate and rhythm. No skipped beats Abdomen: Soft, nontender; no organomegaly or masses palpable. . Colostomy bag left lower quadrant Extremities: No edema. No calf swelling or tenderness. No joint deformity. Neurologic: Alert, cranial nerves II-XII intact; normal gait; no focal weakness or sensory abnormalities Perineal discomfort Consult Discharge Plan - Plan Additional Instructions: Please follow up with your PCP in the next 7-10 days for a recheck. Return to the ER as needed for any other problems or concerns, or if your condition worsens. Take your medications as directed, return to your normal diet and activities. Referrals: Edilberto Jackman MD [Partnered Physician] - 06/02/17 2:50 pm
== END 2017-05-27 14:46 | disposition home or self-care (01) ==
LOC: EMEROO 12:00 → 3ANU 12:00
PROVIDERS: ADMIT Pediatrics; ATTEND Internal Medicine

== ENCOUNTER 2018-09-07 16:49 | Inpatient (IN) ==
[2018-09-07] MEDS ORDERED: Isovue-370 500 ML BOTTLE IVP ONE (17:11)
[2018-09-07] MEDS ORDERED: *HR* HYDROmorphone (PF) 1 MG/ML SYRINGE IVP ONE (17:12)
[2018-09-07] MEDS ORDERED: Ondansetron 4 MG/2 ML VIAL IVP ONE (17:12)
[2018-09-07] MEDS ORDERED: 0.9 % Sodium Chloride 1,000 ML IVC ONE ×2 (17:12→20:30)
--- NOTE | 2018-09-07 17:29 | Emergency Department Note ---
Disposition Clinical Impression: Postobstructive pneumonia, Neutropenia, Leukopenia, Anemia Disposition: Admitted As Inpatient Condition: Serious Referrals: NONE,PCP [Primary Care Provider] - Forms: ED Satisfaction Letter, Work/School Release Time of Disposition: 20:42 General Adult HPI - General Chief complaint: ED Abdominal Pain Stated complaint: abd pain Time Seen by Provider: 09/07/18 17:00 Source: patient, EMS Limitations: physical limitation Nursing Notes Reviewed: Yes Vital Signs Reviewed: Yes - History of Present Illness HPI Narrative: Patient presents emergency Department with chief complaint of left lower chest pain and left upper abdominal pain, progressively increasing since yesterday. She states that it seems to her like it is may be more above her ribs than below the ribs but it is right at the rib line. She states that it hurts when she moves and hurts when she breathes and she does feel little bit more short of breath she has a long-standing history of metastatic cancer for which she is currently undergoing chemotherapy, she has metastatic colon cancer with metastasis to the brain, she typically has chronic rectal pain, she has an ostomy in place, and states that she has had normal output into her ostomy. She states that she has never had pain like this before. She denies fevers or chills she denies headache or neck pain she denies chest pressure. She states that despite taking oral hydromorphone and oral morphine her pain is worsened. She denies black or bloody stool. She denies significant urinary symptoms al though reports that she just completed an antibiotic today for a urinary tract infection, that was initiated by her primary care. Patient endorses some mild nausea without actual vomiting. She states she just feels tired and weak. She had chemotherapy on . She is also on Decadron for she her brain mass she denies increased headache she denies changes denies unilateral numbness or weakness. denies any rashes or acute trauma Pain Scale: 8 - Related Data Home Medications Medication Instructions Recorded Confirmed Polyethylene Glycol 3350 [MiraLAX 1 scoop PO DAILY PRN 12/02/17 09/07/18 Powder Bulk 17.9 Oz] LevETIRAcetam [Keppra] 1 ml PO BID 05/17/18 09/07/18 Tobramycin Sulf 1 appl TP BID 05/17/18 09/07/18 Dexamethasone [Decadron] 4 mg PO DAILY 09/07/18 09/07/18 hydrOXYzine pamoate [Hydroxyzine 50 mg PO DAILY 09/07/18 09/07/18 Pamoate] Previous Rx's Medication Instructions Recorded Lidocaine/Prilocaine [Emla] 1 appl TP AD #30 gm 09/18/17 Hydrocortisone Acet/Aloe Vera 60 gm TP BID #1 lotion 02/23/18 [Nucort Lotion] Hydrocortisone 2.5% CREAM [Cortaid] 1 appl TP TID #1 tube 05/04/18 Magic Mouthwash [Magic Mouthwash 10 ml PO QID PRN #240 ml 08/03/18 BLM] Hydromorphone HCl [Dilaudid] 8 mg PO Q6H PRN 30 Days #120 tablet 08/12/18 Morphine Sulfate SR (12 HR) [MS 30 mg PO Q12HR 30 Days #60 08/12/18 Contin] tablet.er Allergies Allergy/AdvReac Type Severity Reaction Status Date / Time Sulfa (Sulfonamide Allergy Hives Verified 09/02/18 08:59 Antibiotics) All systems ED: reviewed and negative except as stated. Review of Systems: As Per HPI Past Medical History - Past Medical History Medical history: Reports: cancer, seizures Surgical history: Reports: cancer surgery, other Psychiatric history: Reports: anxiety, depression - Social History Smoking Status: Current every day smoker Smokeless Tobacco Status: No Alcohol use: Reports: none Drug use: Reports: none Physical Exam - General Limitations: physical limitation General appearance: alert, in no apparent distress - Head Head exam: atraumatic, normocephalic - Eye Eye exam: Present: normal appearance, PERRL - ENT ENT exam: normal exam, normal oropharynx, other (Mucous membranes are slightly dry in appearance, diffusely very poor dentition but without obvious evidence of gingival swelling or infection, no sublingual edema, no brawny edema of the neck) - Neck Neck exam: Present: normal inspection, full ROM, trachea midline. Absent: tenderness, meningismus - Chest Chest inspection: Present: normal inspection, symmetric chest wall rise, other (Some slight left lower chest wall tenderness no rash no evidence of zoster) - Respiratory Respiratory exam: Present: normal lung sounds bilaterally. Absent: respiratory distress - Cardiovascular Cardiovascular exam: Present: normal rhythm, tachycardia (Heart rate of 105 on the monitor), normal heart sounds. Absent: rubs, gallop - Abdominal Exam Abdominal exam: Present: soft, other (Question some mild left upper abdominal tenderness no rebound guarding or peritoneal sign, colostomy in place, with normal-appearing output. Question lower abdominal palpable mass.) - Extremities Exam Extremities exam: Present: normal inspection, full ROM, other (No unilateral swelling or calf tenderness homicidal critical evidence of DVT, normal distal pulses) - Expanded Lower Extremity Exam Neurovascular/Tendon exam: Present: normal capillary refill. Absent: pulse deficit, motor deficit, sensory deficit - Back Exam Back exam: Present: normal inspection, full ROM. Absent: tenderness, CVA tenderness (R), CVA tenderness (L) - Neurological Exam Neurological exam: Present: alert, oriented X3, CN II-XII intact, reflexes normal. Absent: motor sensory deficit - Psychiatric Psychiatric exam: Present: normal affect, normal mood - Skin Skin exam: Present: warm, dry, intact, normal color. Absent: rash Course Vital Signs Temperature 99.3 F 09/07/18 16:53 Pulse Rate 108 09/07/18 16:53 Respiratory Rate 18 09/07/18 16:53 Blood Pressure 132/70 09/07/18 16:53 O2 Sat by Pulse Oximetry 96 09/07/18 16:53 Temperature 99.1 F 09/07/18 18:30 Pulse Rate 99 09/07/18 18:53 Respiratory Rate 18 09/07/18 18:53 Blood Pressure 121/64 09/07/18 18:53 O2 Sat by Pulse Oximetry 97 09/07/18 18:53 Oxygen Delivery Oxygen Delivery Room Air Medical Decision Making - [facility] Narrative Medical decision making narrative: Patient had an IV placed she was given IV fluids IV pain medication IV nausea medication basic laboratory studies were ordered CT PE protocol was ordered for left sided pleuritic type of pain with reported mild shortness of breath, with a history of cancer. CT of the abdomen pelvis was also ordered as her pain is difficult to assess as to whether or not it is within her chest or her upper abdomen with a history of metastatic cancer. Basic laboratory studies demonstrated total white blood cell count of 200 with an absolute neutrophil count of 100, both significantly low. Hemoglobin is 8.7 most recent was 9.4 platelet stable at 124,000. Lactic acid within acceptable limits. Renal panel within acceptable limits. LFTs devastated very mildly elevated total bilirubin of 1.8 no other acute abdomen [place]. Urinalysis without significant evidence of UTI. CT chest abdomen pelvis demonstrated a potentially increased size of left lower lobe lung mass, but with findings concerning for postobstructive pneumonia. Patient was feeling improved after IV fluids IV hydromorphone, she was due for her oral Keppra which I ordered, also ordered her oral morphine which she is also due for. Her CT scan shows evidence concerning for postobstructive pneumonia she is neutropenic. Blood cultures were sent. IV antibiotics were initiated with IV Zosyn and vancomycin for broad-spectrum coverage as well as anaerobic coverage. I spoke with Dr. Cowart with hematology oncology, who states there is no indication for new last, he is comfortable with the management that I have already performed he will consult on this patient patient will be admitted to the hospital for further evaluation and management. Total critical care time as performed by myself excluding any procedures performed was 30 minutes. - Lab Data Result diagrams: 09/07/18 18:03 09/07/18 18:03 Lab Results 09/07/18 09/07/18 09/07/18 Range/Units 18:03 18:03 18:03 WBC 0.2 L* D (4.3-11.1) K/mcL RBC 2.88 L (3.82-4.97) M/mcL Hgb 8.7 L (11.5-15.4) g/dL Hct 25.3 L (35.3-44.9) % MCV 87.8 (83.0-100.0) fL MCH 30.2 (28.0-33.3) pg MCHC 34.4 (31.6-35.5) g/dL RDW 14.2 (11.5-14.5) % Plt Count 124 L (140-400) K/mcL MPV 8.8 L (9.4-12.4) fL Immature Gran % 0.0 (0-4) % Seg Neutrophils % 65.3 % Lymphocytes % 17.4 % Monocytes % 13.0 % Eosinophils % 4.3 % Basophils % 0.0 % Neutrophils # 0.1 L (1.6-8.9) K/mcL Lymphocytes # 0.0 L (0.6-4.6) K/mcL Monocytes # 0.0 (0.0-1.3) K/mcL Eosinophils # 0.0 (0.0-0.6) K/mcL Basophils # 0.0 (0.0-0.2) K/mcL Sodium 136 (136-145) mEq/L Potassium 3.7 (3.5-5.1) mEq/L Chloride 101 (98-107) mEq/L Carbon Dioxide 26 (23-29) mEq/L BUN 14 (8-23) mg/dL Creatinine 0.29 L (0.60-1.20) mg/dL Est GFR ( Amer) > 60 (> 60) Est GFR (Non-Af Amer) > 60 (> 60) BUN/Creatinine Ratio 48 H (6-26) Glucose 139 H (70-105) mg/dL Calculated Osmolality 285 (280-300) Lactic Acid 0.4 L (0.5-2.2) mmol/L Calcium 8.8 (8.6-10.3) mg/dL Total Bilirubin 1.8 H (0.3-1.0) mg/dL Direct Bilirubin 0.4 H (0.0-0.2) mg/dL Indirect Bilirubin 1.4 H (0.0-1.2) mg/dL AST 9 L (13-39) Units/L ALT 12 (7-52) Units/L Alkaline Phosphatase 77 (34-104) Units/L Troponin I < 0.03 (< 0.04) ng/mL Serum Total Protein 6.0 L (6.4-8.9) g/dL Albumin 3.2 L (3.5-5.7) g/dL Globulin 2.8 (2.4-3.5) g/dL Albumin/Globulin Ratio 1.1 (1.1-2.2) Lipase 6 L (11-82) Units/L Urine Color (Yellow) Urine Clarity (Clear) Urine pH (5.0-8.0) pH Units Ur Specific [place] (1.010-1.025) Urine Protein (Neg-Trace) mg/dL Urine Glucose (UA) (Normal) mg/dL Urine Ketones (Negative) mg/dL Urine Blood (Negative) Urine Nitrite (Negative) Urine Bilirubin (Negative) Urine Urobilinogen (Normal) mg/dL Ur Leukocyte Esterase (Negative) Urine Microscopic RBC (0-3) per hpf Urine Microscopic WBC (0-3) per hpf Ur Squamous Epith Cells (None-Few) per lpf Urine Bacteria (None-Few) per hpf Hyaline Casts (None-Few) per lpf Ur Culture Indicated? (NO) 09/07/18 Range/Units 20:00 WBC (4.3-11.1) K/mcL RBC (3.82-4.97) M/mcL Hgb (11.5-15.4) g/dL Hct (35.3-44.9) % MCV (83.0-100.0) fL MCH (28.0-33.3) pg MCHC (31.6-35.5) g/dL RDW (11.5-14.5) % Plt Count (140-400) K/mcL MPV (9.4-12.4) fL Immature Gran % (0-4) % Seg Neutrophils % % Lymphocytes % % Monocytes % % Eosinophils % % Basophils % % Neutrophils # (1.6-8.9) K/mcL Lymphocytes # (0.6-4.6) K/mcL Monocytes # (0.0-1.3) K/mcL Eosinophils # (0.0-0.6) K/mcL Basophils # (0.0-0.2) K/mcL Sodium (136-145) mEq/L Potassium (3.5-5.1) mEq/L Chloride (98-107) mEq/L Carbon Dioxide (23-29) mEq/L BUN (8-23) mg/dL Creatinine (0.60-1.20) mg/dL Est GFR ( Amer) (> 60) Est GFR (Non-Af Amer) (> 60) BUN/Creatinine Ratio (6-26) Glucose (70-105) mg/dL Calculated Osmolality (280-300) Lactic Acid (0.5-2.2) mmol/L Calcium (8.6-10.3) mg/dL Total Bilirubin (0.3-1.0) mg/dL Direct Bilirubin (0.0-0.2) mg/dL Indirect Bilirubin (0.0-1.2) mg/dL AST (13-39) Units/L ALT (7-52) Units/L Alkaline Phosphatase (34-104) Units/L Troponin I (< 0.04) ng/mL Serum Total Protein (6.4-8.9) g/dL Albumin (3.5-5.7) g/dL Globulin (2.4-3.5) g/dL Albumin/Globulin Ratio (1.1-2.2) Lipase (11-82) Units/L Urine Color Yellow (Yellow) Urine Clarity Clear (Clear) Urine pH 7.5 (5.0-8.0) pH Units Ur Specific [place]ice > 1.030 H (1.010-1.025) Urine Protein Negative (Neg-Trace) mg/dL Urine Glucose (UA) Normal (Normal) mg/dL Urine Ketones Negative (Negative) mg/dL Urine Blood Negative (Negative) Urine Nitrite Negative (Negative) Urine Bilirubin Negative (Negative) Urine Urobilinogen 2.0 H (Normal) mg/dL Ur Leukocyte Esterase Small H (Negative) Urine Microscopic RBC 0-3 (0-3) per hpf Urine Microscopic WBC 5-15 H (0-3) per hpf Ur Squamous Epith Cells Many H (None-Few) per lpf Urine Bacteria None Seen (None-Few) per hpf Hyaline Casts None Seen (None-Few) per lpf Ur Culture Indicated? YES A (NO)
[2018-09-07 18:20] LABS: Eosinophils % 4.3 %; Hematocrit 25.3 % (35.3-44.9); Hemoglobin 8.7 g/dL (11.5-15.4); Lymphocytes % 17.4 %; Mean Corpuscular HGB Conc 34.4 g/dL (31.6-35.5); Mean Corpuscular Hemoglobin 30.2 pg (28.0-33.3); Mean Corpuscular Volume 87.8 fL (83.0-100.0); Mean Platelet Volume 8.8 fL (9.4-12.4); Platelet Count 124 K/mcL (140-400); Red Blood Count 2.88 M/mcL (3.82-4.97); Red Cell Distribution Width 14.2 % (11.5-14.5); Segmented Neutrophils % 65.3 %
[2018-09-07 18:21] LABS: Neutrophils # 0.1 K/mcL (1.6-8.9)
[2018-09-07 18:22] LABS: White Blood Count 0.2 K/mcL (4.3-11.1)
[2018-09-07 18:53] LABS: Alanine Aminotransferase 12 Units/L (7-52); Albumin 3.2 g/dL (3.5-5.7); Albumin/Globulin Ratio 1.1 (1.1-2.2); Alkaline Phosphatase 77 Units/L (34-104); Aspartate Amino Transferase 9 Units/L (13-39); BUN/Creatinine Ratio 48 (6-26); Bilirubin,Direct 0.4 mg/dL (0.0-0.2); Bilirubin,Indirect 1.4 mg/dL (0.0-1.2); Bilirubin,Total 1.8 mg/dL (0.3-1.0); Blood Urea Nitrogen 14 mg/dL (8-23); Calcium 8.8 mg/dL (8.6-10.3); Carbon Dioxide 26 mEq/L (23-29); Chloride 101 mEq/L (98-107); Globulin 2.8 g/dL (2.4-3.5); Glucose 139 mg/dL (70-105); Lipase 6 Units/L (11-82); Osmolality,Calculated 285 (280-300); Potassium 3.7 mEq/L (3.5-5.1); Sodium 136 mEq/L (136-145); Troponin I < 0.03 ng/mL (< 0.04); eGFR For African Americans > 60 (> 60); eGFR For Non-African Americans > 60 (> 60)
[2018-09-07 20:15] LABS: Bilirubin,Urine Negative (Negative); Blood,Urine Negative (Negative); Clarity,Urine Clear (Clear); Color,Urine Yellow (Yellow); Glucose,Urine (UA) Normal (Normal); Ketones,Urine Negative (Negative); Leukocyte Esterase,Urine Small (Negative); Nitrite,Urine Negative (Negative); PH,Urine 7.5 pH Units (5.0-8.0); Protein,Urine Negative (Neg-Trace); Specific Gravity,Urine > 1.030 (1.010-1.025)
[2018-09-07 20:18] LABS: Bacteria,Urine None Seen per hpf (None-Few); Hyaline Casts,Urine None Seen per lpf (None-Few); RBC,Urine 0-3 per hpf (0-3); Squamous Epithelial Cell,Urine Many per lpf (None-Few)
[2018-09-07] MEDS ORDERED: Piperacillin/Tazobactam 3.375 GM in 0.9 % Sodium Chloride Mini Bag 100 ML IVPB ONE (20:29)
[2018-09-07] MEDS ORDERED: Morphine Sulfate Immed Rel 15 MG TABLET PO STA (20:30)
[2018-09-07] MEDS ORDERED: Vancomycin 1,000 MG VIAL ONE (21:11)
[2018-09-07] MEDS: levETIRAcetam 500 MG/5 ML UDC PO SCH (22:44)
[2018-09-08] MEDS ORDERED: Magic Mouthwash 10 ML UD Cup PO PRN (02:17)
[2018-09-08] MEDS ORDERED: Naloxone 0.4 MG/ML INJ IVP PRN (02:19)
[2018-09-08] MEDS ORDERED: Ondansetron 4 MG/2 ML VIAL IVP PRN (02:19)
--- NOTE | 2018-09-08 02:29 | Internal Med History&Physical ---
Date of Encounter: 09/08/18 Time of Encounter: 01:40 Internal Medicine - H&P: HPI Chief complaint: Pneumonia Admitted From: Emergency Dept Plans for Post Hospital Care: Home History of present illness: Ms. Beyer is a 63 year old female Patient presented to the emergency department with left-sided flank pain for 2 days. She has a history of metastatic colorectal cancer with metastasis to the brain and lung. She says the pain is on the lower part of her chest and upper abdomen but on the lateral flank side. It hurts with breathing and also movement. His progressively worsened over the last 2 days, she has never had pain quite like this before. She has not had shortness of breath, and denies falls and injuries to the area. In the emergency department patient's initial vital signs: Temperature 99.3, pulse 108, respiratory rate 18, blood pressure 132/70, O2 saturation 96% on room air. CBC: White count 0.2, hemoglobin 8.7, platelets 124. BMP: Within normal limits aside from elevated glucose of 139. Lactic acid 0.4 Liver function tests: Total bilirubin 1.8, AST 9, ALT 12. Troponin: Undetectable Urinalysis: Small leukocyte esterase, 5-15 white blood cells, negative nitrite no bacteria seen. Chest abdomen and pelvis: No central or segmental pulmonary embolus, significant left lower lobe masslike consolidation likely obstructive pneumonia. Blood cultures and urine cultures were drawn. The emergency department contacted hematology and reviewed the case with them. She follows closely with them at their clinic. No further recommendations, agreed with starting Zosyn and vancomycin. Patient was admitted to the hospital for further management. Upon my evaluation, patient is resting comfortably in hospital bed in no acute distress. She denies pain however she says she does not have pain unless she moves or takes a deep breath. With movement she still has her left-sided flank pain. She denies central chest pain as well as abdominal pain, nausea, vomiting, diarrhea and constipation. She states that she is full code, but she has not discussed this much with her family. Past Med Surg Social Fam HX - Past Medical History Medical history: cancer, seizures Additional medical history: Stage 4 Colon CA mets to breast/brain Psychiatric history: anxiety, depression - Past Surgical History Surgical History: colostomy, hysterectomy Additional surgical history: Chemo Port - Social History Smoking Status: Current every day smoker Smokeless Tobacco Status: No Alcohol use: none Drug use: none - Family History Mother Living Status: Hx Family Cardiac Disorders: Yes Hx Family Respiratory Disorders: No Hx Family Cancer: Yes Hx Family GI Disorders: No Hx Family Endocrine Disorder: No Hx Family Neuromuscular Disorders: No Hx Family Neurologic Disorders: No Hx Family HEENT Disorders: No Hx Family Autoimmune Disorders: Yes Internal Medicine - H&P: Meds Lidocaine/Prilocaine [Emla] 1 appl TP AD #30 gm 09/18/17 [Rx] Polyethylene Glycol 3350 [MiraLAX Powder Bulk 17.9 Oz] 1 scoop PO DAILY PRN 12/02/17 [History] Hydrocortisone Acet/Aloe Vera [Nucort Lotion] 60 gm TP BID #1 lotion 02/23/18 [Rx] Hydrocortisone 2.5% CREAM [Cortaid] 1 appl TP TID #1 tube 05/04/18 [Rx] LevETIRAcetam [Keppra] 1 ml PO BID 05/17/18 [History] Tobramycin Sulf 1 appl TP BID 05/17/18 [History] Magic Mouthwash [Magic Mouthwash BLM] 10 ml PO QID PRN #240 ml 08/03/18 [Rx] Hydromorphone HCl [Dilaudid] 8 mg PO Q6H PRN 30 Days #120 tablet 08/12/18 [Rx] Morphine Sulfate SR (12 HR) [MS Contin] 30 mg PO Q12HR 30 Days #60 tablet.er 08/12/18 [Rx] Dexamethasone [Decadron] 4 mg PO DAILY 09/07/18 [History] hydrOXYzine pamoate [Hydroxyzine Pamoate] 50 mg PO DAILY 09/07/18 [History] Allergy/AdvReac Type Severity Reaction Status Date / Time Sulfa (Sulfonamide Allergy Hives Verified 09/02/18 08:59 Antibiotics) All Systems PM: A 10-system review of systems was performed and is negative for pertinent findings except as documented above in the HPI. - Constitutional Vitals: Temp Pulse Resp BP Pulse Ox 98.7 F 87 16 113/67 97 09/08/18 00:01 09/08/18 00:01 09/08/18 00:01 09/08/18 00:01 09/08/18 00:01 General appearance: Present: cooperative, A&O X 3, pleasant, no acute distress, answers questions appropriately Exam: - - Head Head exam: Present: normal inspection - Eye Eye exam: Present: EOMI, normal appearance - Respiratory Respiratory exam: Present: CTAB. Absent: chest wall tenderness, decreased breath sounds, rales, respiratory distress, rhonchi, wheezes - Cardiovascular Cardiovascular exam: Present: RRR. Absent: diastolic murmur, systolic murmur - GI/Abdominal GI/Abdominal exam: Present: normal bowel sounds, soft. Absent: tenderness - Extremities Exam Extremities exam: Present: warm, radial pulses palpable and symmetrical. Absent: calf tenderness, pedal edema, tenderness - Neurological Exam Neurological exam: Present: no focal deficits, strengths equal and symetr throughout. Absent: motor sensory deficit, facial droop, speech deficit - Skin Skin exam: Present: dry, normal color, warm Internal Med - H&P Results - Labs CBC & Chem 7: 09/07/18 18:03 09/07/18 18:03 Labs: Short CBC 09/07/18 Range/Units 18:03 WBC 0.2 L* D (4.3-11.1) K/mcL Hgb 8.7 L (11.5-15.4) g/dL Hct 25.3 L (35.3-44.9) % Plt Count 124 L (140-400) K/mcL Neutrophils # 0.1 L (1.6-8.9) K/mcL BMP 09/07/18 18:03 Sodium 136 Potassium 3.7 Chloride 101 Carbon Dioxide 26 BUN 14 Creatinine 0.29 L Glucose 139 H Calcium 8.8 Cardiac Enzymes 09/07/18 Range/Units 18:03 Troponin I < 0.03 (< 0.04) ng/mL Liver Function 09/07/18 Range/Units 18:03 Total Bilirubin 1.8 H (0.3-1.0) mg/dL Direct Bilirubin 0.4 H (0.0-0.2) mg/dL AST 9 L (13-39) Units/L ALT 12 (7-52) Units/L Alkaline Phosphatase 77 (34-104) Units/L Albumin 3.2 L (3.5-5.7) g/dL Urine 09/07/18 Range/Units 20:00 Urine Color Yellow (Yellow) Urine Clarity Clear (Clear) Urine pH 7.5 (5.0-8.0) pH Units Ur Specific [place] > 1.030 H (1.010-1.025) Urine Protein Negative (Neg-Trace) mg/dL Urine Glucose (UA) Normal (Normal) mg/dL - Impressions ITS Impressions Abdomen/Pelvis CT 09/07/18 17:11 IMPRESSION: No central or segmental pulmonary embolus. Significantly increased left lower lobe masslike consolidation. Given the significant increase over short interval of time a component of obstructive pneumonia may be present. Overall finding is concerning for worsening malignancy. Wall thickening and increased enhancement of the proximal duodenum may indicate a duodenitis. No bowel obstruction. Subcentimeter right hepatic lesion is incompletely characterized and may represent a cyst versus metastatic disease. Slight nodular thickening of the adrenal glands may be new and could indicate metastatic disease. Collection within the right buttock soft tissue extending into the pelvis similar to prior studies. D/ / 09/07/2018 20:14:08 Ricardo Monroy MD / timothy Interpreting Provider: Ricardo Monroy MD Chest CTA 09/07/18 17:11 IMPRESSION: No central or segmental pulmonary embolus. Significantly increased left lower lobe masslike consolidation. Given the significant increase over short interval of time a component of obstructive pneumonia may be present. Overall finding is concerning for worsening malignancy. Wall thickening and increased enhancement of the proximal duodenum may indicate a duodenitis. No bowel obstruction. Subcentimeter right hepatic lesion is incompletely characterized and may represent a cyst versus metastatic disease. Slight nodular thickening of the adrenal glands may be new and could indicate metastatic disease. Collection within the right buttock soft tissue extending into the pelvis similar to prior studies. D/ / 09/07/2018 20:14:08 Ricardo Monroy MD / timothy Interpreting Provider: Ricardo Monroy MD - Assessment and Plan (1) Postobstructive pneumonia Current Visit: Yes Status: Acute Assessment and plan: As seen on imaging. Patient has history of cancer with metastasis to the lung. Blood cultures drawn in the emergency room. She was started on vancomycin and Zosyn in the emergency room. Continue IV antibiotics Follow-up cultures when available Monitor for worsening signs of infection (2) Pancytopenia Current Visit: Yes Status: Acute Assessment and plan: Patient presents with decreased white blood cells of 0.2, hemoglobin of 8.7 and platelets of 124. Patient had chemotherapy about 4 days ago. Hematology was called in the emergency room and will see the patient in the morning. Patient otherwise has stable vital signs. Follow-up hematology/oncology recommendations Continue to monitor, repeat labs in the morning (3) Elevated bilirubin Current Visit: Yes Status: Acute Assessment and plan: With unconjugated bilirubin of 1.4. She has had elevated bilirubin in the past as well. Imaging does indicate a subcentimeter right hepatic lesion which could be a cyst versus metastatic disease. He did not jaundiced on exam. Repeat labs in the morning Hematology/oncology consult (4) Cancer associated pain Current Visit: No Status: Acute Assessment and plan: Patient takes multiple pain medicines at home including Dilaudid, lidocaine and morphine. Continue home pain medications (5) Seizure Current Visit: No Status: Acute Assessment and plan: Patient has developed seizure disorder likely secondary to brain metastasis. Patient was given a dose of her home Keppra in the emergency room. Continue home medicines (6) DVT prophylaxis Current Visit: No Status: Acute Assessment and plan: SCDs - Time Spent With Patient Total time spent is greater than 50% in coordination of care (as documented) at patient's floor/unit and/or counseling patient: Greater than 35 minutes
[2018-09-08] MEDS: *HR* HYDROmorphone 4 MG TABLET PO PRN ×4 (03:18→22:37)
[2018-09-08] MEDS: Morphine Sulfate ER (12 HR) 30 MG TABLET.ER PO SCH ×2 (05:17→18:27)
[2018-09-08 05:58] LABS: Hemoglobin 7.2 g/dL (11.5-15.4)
[2018-09-08 05:59] LABS: Hematocrit 21.5 % (35.3-44.9); Mean Corpuscular HGB Conc 33.5 g/dL (31.6-35.5); Mean Corpuscular Hemoglobin 30.1 pg (28.0-33.3); Mean Platelet Volume 9.2 fL (9.4-12.4); Platelet Count 100 K/mcL (140-400); Red Blood Count 2.39 M/mcL (3.82-4.97); Red Cell Distribution Width 14.1 % (11.5-14.5)
[2018-09-08 06:06] LABS: White Blood Count 0.5 K/mcL (4.3-11.1)
[2018-09-08 06:43] LABS: Alanine Aminotransferase 9 Units/L (7-52); Albumin 2.8 g/dL (3.5-5.7); Albumin/Globulin Ratio 1.2 (1.1-2.2); Alkaline Phosphatase 66 Units/L (34-104); Aspartate Amino Transferase 8 Units/L (13-39); BUN/Creatinine Ratio 44 (6-26); Bilirubin,Total 1.4 mg/dL (0.3-1.0); Blood Urea Nitrogen 12 mg/dL (8-23); Calcium 8.3 mg/dL (8.6-10.3); Carbon Dioxide 26 mEq/L (23-29); Chloride 104 mEq/L (98-107); Globulin 2.3 g/dL (2.4-3.5); Glucose 109 mg/dL (70-105); Osmolality,Calculated 286 (280-300); Potassium 3.7 mEq/L (3.5-5.1); Sodium 138 mEq/L (136-145); Total Protein 5.1 g/dL (6.4-8.9); eGFR For African Americans > 60 (> 60); eGFR For Non-African Americans > 60 (> 60)
[2018-09-08] MEDS ORDERED: levETIRAcetam 500 MG/5 ML UDC PO SCH (09:00)
[2018-09-08] MEDS ORDERED: [UNRECOGNIZED DRUG - OTHER] TP SCH (09:00)
[2018-09-08] MEDS: levETIRAcetam 500 MG/5 ML UDC PO SCH ×2 (09:22→20:41)
[2018-09-08] MEDS: hydrOXYzine pamoate 25 MG CAPSULE PO SCH (09:23)
[2018-09-08] MEDS: [UNRECOGNIZED DRUG - OTHER] TP SCH ×2 (09:25→20:42)
--- NOTE | 2018-09-08 12:47 | Electrocardiograph Report ---
[address] [place], [place] [address] Test Date: 2018-09-07 Pat Name: Basilia Beyer Department: EXAM9 Room: 3A45 Gender: F [employer] Specialist: : [id number] Requested By: Wesley Fortune Order Number: [id number] Reading MD: Ally Blanchard Measurements Intervals [place] Rate: 100 P: 80 NV: 115 QRS: 49 QRSD: 78 T: 48 QT: 315 QTc: 407 Interpretive Statements Sinus tachycardia Electronically Signed On 09-08-2018 12:45:50 EDT by Ally Blanchard
--- NOTE | 2018-09-08 15:17 | Oncology Inp Consult Note ---
<Reynaldo Cowart - Last Filed: 09/08/18 21:03> Date of Encounter: 09/08/18 - Data of Consult Requesting Physician: Abdirahman Head MD Primary Care Provider: PCP NONE Medications and Allergies Lidocaine/Prilocaine [Emla] 1 appl TP AD #30 gm 09/18/17 [Rx] Hydrocortisone Acet/Aloe Vera [Nucort Lotion] 60 gm TP BID #1 lotion 02/23/18 [Rx] LevETIRAcetam [Keppra] 1,000 mg PO BID 05/17/18 [History] Magic Mouthwash [Magic Mouthwash BLM] 10 ml PO QID PRN #240 ml 08/03/18 [Rx] Hydromorphone HCl [Dilaudid] 8 mg PO Q6H PRN 30 Days #120 tablet 08/12/18 [Rx] Morphine Sulfate SR (12 HR) [MS Contin] 30 mg PO Q12HR 30 Days #60 tablet.er 08/12/18 [Rx] Dexamethasone [Decadron] 4 mg PO DAILY 09/07/18 [History] Hydrocortisone 2.5% CREAM [Cortaid] 1 appl TP TID PRN 09/08/18 [History] hydrOXYzine HCl [Hydroxyzine HCl] 50 mg PO DAILY 09/08/18 [History] Allergy/AdvReac Type Severity Reaction Status Date / Time Sulfa (Sulfonamide Allergy Hives, Rash Verified 09/08/18 16:48 Antibiotics) Consult Discharge Plan - Plan Referrals: NONE,PCP [Primary Care Provider] - - Attending Attestation I have seen and examined Ms. Beyer and agree with Mr. Mo's assessment. Ms Beyer has widely metastatic and heavily pretreated colorectal cancer. She recently completed a course of radiation to the pelvis and has started irinotecan/panitumumab. She presented with acute onset left chest pain. Cardiac evaluation negative but CT shows left lung postobstructive process. This is in region of prior radiotherapy as well. She is not toxic, remains afebrile and doing well. Pain is better. She is oxygenating well. Lungs are diminished. Heart RRR. Abdomen, soft, nontender. Continue with broad-spectrum antibiotics for CAP with neutropenia. There is no acute indication for G-CSF as she is not critically; studies have shown no improvement of outcome in this setting. Counts should recover next few days. Will likely need prophylactic neulasta ordered to her upcoming treatments. We will continue to follow. Inpatient Charges Provider: Dr. Vamshi Cowart Consult - Inpatient: [id number] <John Mo Jr - Last Filed: 09/09/18 10:49> Date of Encounter: 09/09/18 Time of Encounter: 15:13 Assessment and Plan (1) Neutropenia Status: Acute Assessment and plan: This is a 63-year-old female presents with an AJCC clinical stage IV metastatic colorectal cancer. Patient of Dr Edilberto Jackman. She completed palliative radiotherapy abdomen/pelvis, whole brain radiotherapy as well as palliative lung radiotherapy. Currently on chemotherapy at [facility], Irinotecan and Panitumumab every 2 weeks, next treatment 09/17/[address] [facility]. Patient admitted for post-obstructive pneumonia, and neutropenia with a ANC of 100. Our recommendation is not to do Neupogen or Neulasta, in the setting of recently completed radiotherapy. We agree with continued broad-spectrum antibiotics, improved patient's infection, and medical stabilization so she can be discharged to continue her treatment plan with Dr. Jackman. Dr Cowart assessed patient with me and will make additional changes as necessary. Qualifiers: Neutropenia type: secondary to cancer chemotherapy Qualified Code(s): D70.1 - Agranulocytosis secondary to cancer chemotherapy; T45.1X5A - Adverse effect of antineoplastic and immunosuppressive drugs, initial encounter - Data of Consult Patient: known to practice within the last 3 years Consult date: 09/08/18 Requesting Physician: Abdirahman Head MD Primary Care Provider: PCP NONE - Consult Narrative Reason for consult: neutropenia History of present illness: Ms. Beyer is a 63 year old female with a history of metastatic colorectal cancer with metastasis to the brain and lung. She says she has pain is on the lower part of her chest and upper abdomen but on the lateral flank side. It hurts with breathing and also movement. His progressively worsened over the last 2 days, She has never had pain quite like this before. She has not had shortness of breath, and denies falls and injuries to the area. Chest abdomen and pelvis: No central or segmental pulmonary embolus, significant left lower lobe mass-like consolidation, likely obstructive pneumonia. Blood cultures and urine cultures were drawn. Started Zosyn and vancomycin while cultures are resulting. Patient was admitted to the hospital for further management. Oncology History: The patient is very pleasant 63 a female of Dr[address] Goodman abdulaziz Jackman at the [facility] being treated for metastatic Rectal cancer with lung metastasis. TX NX M1 stage IV She had good response to chemotherapy and received palliative rectal surgery because of rectal bleeding. She underwent AP resection/pelvic exoneration-type surgery by Dr. Keith at [facility] 06/23/17. KRAS NEGATIVE and BRAF NEGATIVE [facility] one testing Showed microsatellite stable. K-josh wild type. PI3 kinase mutation. No actionable mutation She has difficult time getting coverage on home 5-FU Second line treatment Intent: Palliative Cycle repeated every 2 weeks Number of cycles: Till response or progression Irinotecan 160 mg/m IV day 1 (reduced to 140 mg/m from cycle 10-secondary to fatigue) Panitumumab 6 mg per KG IV day 1 Treatment dates 09/25/2017 to current Subsequently received palliative radiation. Enlarging left lung metastasis. Radiation dates 06/25/2018 to 07/12/2018. Received 3000 cGy out of a planned 6000 cGy Radiation stopped prematurely because of brain metastasis PET scan on 05/12/2018 showed disease progression at least 3 different nodularity in the pelvis and there are small about centimeter or so. She is getting his get radiation to the pelvis. Scheduled treatment dates 08/06/2018 to 08/18/[address] chest abdomen and pelvis with IV contrast 07/29/2018 showed left lower lobe lung mass size about same at 4.7 x 3.4 cm. Otherwise no additional metastasis CEA has increased to 37 on 07/23/2018. Restaging CT chest abdomen and pelvis with IV contrast 07/29/2018 showed no new metastasis. CEA has increased to 60 on 08/19/2018. But the CEA increase could be secondary to not receiving systemic treatment. The plan is to continue above treatment. We will follow CEA closely. If there is continued CEA progression consider switching her to oxaliplatin and Xeloda Future treatment options includes Lonsurf, Regorafenib 2. Brain metastasis. MRI brain with and without contrast 07/12/2018 showed multiple intra-axial enhancing lesion in the cerebellum bilaterally. Largest 21 x 13 mm right cerebellum. Enhancing lesion left parietal 20 mm. Right paracentral guided a 7 mm. Significant vasogenic edema inferior cerebellum and superior left parietal lobe. Mass effect on inferior fourth ventricle. Possible hemorrhage. A 2-field plan will be utilized to deliver 3000 cGy in 10 fractions of 300 cGy each to the whole brain. On Decadron 4 mg 3 times a day which was reduced to twice a day by Dr. Gentile Whole brain radiation 3000 cGy. Treatment dates 07/15/2018 to 07/28/2018 3. Cancer related pain. She is considered terminal because of metastatic rectal cancer. She will be examined from [id number]. Currently on Dilaudid and morphine 4. Pancytopenia likely from chemotherapy platelets around 120. Anemia hemoglobin around 9.4. This is a sudden drop from her baseline of 12. We will do anemia workup with next set of blood work including iron B12 folate and hemolysis workup Past Med Surg Social Fam HX - Past Medical History Medical history: cancer, seizures Additional medical history: Stage 4 Colon CA mets to breast/brain Psychiatric history: anxiety, depression - Past Surgical History Surgical History: colostomy, hysterectomy Additional surgical history: Chemo Port - Social History Smoking Status: Current every day smoker Smokeless Tobacco Status: No Alcohol use: none Drug use: none - Family History Mother Living Status: Hx Family Cardiac Disorders: Yes Hx Family Respiratory Disorders: No Hx Family Cancer: Yes Hx Family GI Disorders: No Hx Family Endocrine Disorder: No Hx Family Neuromuscular Disorders: No Hx Family Neurologic Disorders: No Hx Family HEENT Disorders: No Hx Family Autoimmune Disorders: Yes Constitutional: Present: chills, fatigue, malaise Respiratory: Present: cough, dyspnea, dyspnea on exertion Oncology - Exam - Constitutional General appearance: cooperative, no acute distress - Head Head exam: Present: normal inspection, normocephalic - ENT ENT exam: Present: mucous membranes moist - Neck Neck exam: Present: full ROM - Respiratory Respiratory exam: Present: decreased breath sounds, wheezes - Cardiovascular Cardiovascular exam: Present: RRR - GI/Abdominal GI/Abdominal exam: Present: normal bowel sounds, soft - Extremities Exam Extremities exam: Present: full ROM, pedal edema - Neurological Exam Neurological exam: Present: alert, oriented X3, no focal deficits - Psychiatric Psychiatric exam: Present: normal affect, normal mood - Skin Skin exam: Present: dry, intact, warm Oncology Inpatient Results Labs: Laboratory Last Values WBC 0.5 K/mcL (4.3-11.1) L* D 09/08/18 05:10 RBC 2.39 M/mcL (3.82-4.97) L 09/08/18 05:10 Hgb 7.2 g/dL (11.5-15.4) L D 09/08/18 05:10 Hct 21.5 % (35.3-44.9) L 09/08/18 05:10 MCV 90.0 fL (83.0-100.0) 09/08/18 05:10 MCH 30.1 pg (28.0-33.3) 09/08/18 05:10 MCHC 33.5 g/dL (31.6-35.5) 09/08/18 05:10 RDW 14.1 % (11.5-14.5) 09/08/18 05:10 Plt Count 100 K/mcL (140-400) L 09/08/18 05:10 MPV 9.2 fL (9.4-12.4) L 09/08/18 05:10 Immature Gran % 0.0 % (0-4) 09/07/18 18:03 Seg Neutrophils % 65.3 % 09/07/18 18:03 17.4 % 09/07/18 18:03 13.0 % 09/07/18 18:03 4.3 % 09/07/18 18:03 0.0 % 09/07/18 18:03 0.1 K/mcL (1.6-8.9) L 09/07/18 18:03 0.0 K/mcL (0.6-4.6) L 09/07/18 18:03 0.0 K/mcL (0.0-1.3) 09/07/18 18:03 0.0 K/mcL (0.0-0.6) 09/07/18 18:03 0.0 K/mcL (0.0-0.2) 09/07/18 18:03 Sodium 138 mEq/L (136-145) 09/08/18 05:10 Potassium 3.7 mEq/L (3.5-5.1) 09/08/18 05:10 Chloride 104 mEq/L (98-107) 09/08/18 05:10 Carbon Dioxide 26 mEq/L (23-29) 09/08/18 05:10 BUN 12 mg/dL (8-23) 09/08/18 05:10 0.27 mg/dL (0.60-1.20) L 09/08/18 05:10 Est GFR ( Amer) > 60 (> 60) 09/08/18 05:10 Est GFR (Non-Af Amer) > 60 (> 60) 09/08/18 05:10 44 (6-26) H 09/08/18 05:10 Glucose 109 mg/dL (70-105) H 09/08/18 05:10 286 (280-300) 09/08/18 05:10 Lactic Acid 0.4 mmol/L (0.5-2.2) L 09/07/18 18:03 Calcium 8.3 mg/dL (8.6-10.3) L 09/08/18 05:10 1.4 mg/dL (0.3-1.0) H 09/08/18 05:10 0.4 mg/dL (0.0-0.2) H 09/07/18 18:03 1.4 mg/dL (0.0-1.2) H 09/07/18 18:03 AST 8 Units/L (13-39) L 09/08/18 05:10 ALT 9 Units/L (7-52) 09/08/18 05:10 66 Units/L (34-104) 09/08/18 05:10 < 0.03 ng/mL (< 0.04) 09/07/18 18:03 5.1 g/dL (6.4-8.9) L 09/08/18 05:10 2.8 g/dL (3.5-5.7) L 09/08/18 05:10 2.3 g/dL (2.4-3.5) L 09/08/18 05:10 1.2 (1.1-2.2) 09/08/18 05:10 6 Units/L (11-82) L 09/07/18 18:03 Yellow (Yellow) 09/07/18 20:00 Clear (Clear) 09/07/18 20:00 7.5 pH Units (5.0-8.0) 09/07/18 20:00 Ur Specific [place] > 1.030 (1.010-1.025) H 09/07/18 20:00 Negative mg/dL (Neg-Trace) 09/07/18 20:00 Normal mg/dL (Normal) 09/07/18 20:00 Negative mg/dL (Negative) 09/07/18 20:00 Negative (Negative) 09/07/18 20:00 Negative (Negative) 09/07/18 20:00 Negative (Negative) 09/07/18 20:00 2.0 mg/dL (Normal) H 09/07/18 20:00 Ur Leukocyte Esterase Small (Negative) H 09/07/18 20:00 0-3 per hpf (0-3) 09/07/18 20:00 5-15 per hpf (0-3) H 09/07/18 20:00 Ur Squamous Epith Cells Many per lpf (None-Few) H 09/07/18 20:00 None Seen per hpf (None-Few) 09/07/18 20:00 Hyaline Casts None Seen per lpf (None-Few) 09/07/18 20:00 Ur Culture Indicated? YES (NO) A 09/07/18 20:00
[2018-09-08] MEDS: Piperacillin/Tazobactam 3.375 GM in 0.9 % Sodium Chloride Mini Bag 100 ML IVPB SCH (16:05)
[2018-09-08] MEDS ORDERED: Vancomycin 500 MG in 0.9 % Sodium Chloride 250 ML IVPB ONE (17:34)
--- NOTE | 2018-09-08 17:37 | Event Note ---
Date of Encounter: 09/08/18 Time of Encounter: 11:35 Will resume pt on Vancomycin and Zosyn for now.
[2018-09-08] MEDS: Vancomycin 500 MG in 0.9 % Sodium Chloride Mini Bag 100 ML IVPB SCH (18:26)
[2018-09-09] MEDS: Piperacillin/Tazobactam 3.375 GM in 0.9 % Sodium Chloride Mini Bag 100 ML IVPB SCH ×3 (00:19→17:38)
[2018-09-09] MEDS: *HR* HYDROmorphone 4 MG TABLET PO PRN ×3 (04:04→19:55)
[2018-09-09] MEDS: Morphine Sulfate ER (12 HR) 30 MG TABLET.ER PO SCH ×2 (06:10→17:36)
[2018-09-09] MEDS: Vancomycin 500 MG in 0.9 % Sodium Chloride Mini Bag 100 ML IVPB SCH (06:10)
[2018-09-09] MEDS: hydrOXYzine pamoate 25 MG CAPSULE PO SCH (09:16)
[2018-09-09] MEDS: levETIRAcetam 500 MG/5 ML UDC PO SCH ×2 (09:16→19:54)
[2018-09-09] MEDS: Ketorolac 15 MG/ML VIAL IVP SCH ×2 (13:07→17:36)
[2018-09-09] MEDS ORDERED: Aminoglycoside Consult 1 EACH MC ONE (14:05)
[2018-09-09 14:22] LABS: Hemoglobin 6.9 g/dL (11.5-15.4); Red Cell Distribution Width 14.6 % (11.5-14.5)
[2018-09-09 14:23] LABS: Hematocrit 20.9 % (35.3-44.9); Lymphocytes # 0.1 K/mcL (0.6-4.6); Mean Corpuscular Hemoglobin 30.1 pg (28.0-33.3); Mean Corpuscular Volume 91.3 fL (83.0-100.0); Mean Platelet Volume 9.8 fL (9.4-12.4); Monocytes # 0.1 K/mcL (0.0-1.3); Nucleated Red Blood Cells 1.7 /100 WBC (0); Platelet Count 103 K/mcL (140-400); Red Blood Count 2.29 M/mcL (3.82-4.97); White Blood Count 1.2 K/mcL (4.3-11.1)
[2018-09-09 14:37] LABS: Alanine Aminotransferase 11 Units/L (7-52); Albumin 2.7 g/dL (3.5-5.7); Albumin/Globulin Ratio 1.1 (1.1-2.2); Alkaline Phosphatase 68 Units/L (34-104); Aspartate Amino Transferase 8 Units/L (13-39); BUN/Creatinine Ratio 48 (6-26); Bilirubin,Total 0.8 mg/dL (0.3-1.0); Blood Urea Nitrogen 15 mg/dL (8-23); Calcium 8.5 mg/dL (8.6-10.3); Carbon Dioxide 28 mEq/L (23-29); Chloride 104 mEq/L (98-107); Globulin 2.4 g/dL (2.4-3.5); Glucose 112 mg/dL (70-105); Osmolality,Calculated 286 (280-300); Sodium 137 mEq/L (136-145); Total Protein 5.1 g/dL (6.4-8.9); eGFR For African Americans > 60 (> 60); eGFR For Non-African Americans > 60 (> 60)
[2018-09-09 15:06] LABS: Neutrophils # 1.1 K/mcL (1.6-8.9)
[2018-09-09 15:07] LABS: Anisocytosis 1+ (Not Present); Platelet Estimate Slight Decrease (Normal)
[2018-09-09] MEDS: [UNRECOGNIZED DRUG - OTHER] TP SCH ×2 (15:31→19:56)
--- NOTE | 2018-09-09 16:01 | Oncology Inp Progress Note ---
Date of Encounter: 09/09/18 Time of Encounter: 16:00 (1) Metastatic colorectal cancer Current Visit: No Status: Chronic Assessment and plan: She will maintain her visit next Thursday Dr. Jackman as planned. This may change depending upon her clinical course. (2) Postobstructive pneumonia Current Visit: Yes Status: Acute Assessment and plan: Continue antibiotics as prescribed. Consider transition to oral agent tomorrow if doing well. Neutrophil count is recovering. Clinically improving (3) Neutropenia Current Visit: Yes Status: Acute Assessment and plan: Resolving. ANC is 1100 today. Continue supportive measures Qualifiers: Neutropenia type: secondary to cancer chemotherapy Qualified Code(s): D70.1 - Agranulocytosis secondary to cancer chemotherapy; T45.1X5A - Adverse effect of antineoplastic and immunosuppressive drugs, initial encounter (4) Anemia Current Visit: Yes Status: Acute Assessment and plan: Transfuse 2 U PRBC. Qualifiers: Anemia type: other cause Other causes of anemia: antineoplastic chemotherapy Qualified Code(s): D64.81 - Anemia due to antineoplastic chemotherapy; T45.1X5A - Adverse effect of antineoplastic and immunosuppressive drugs, initial encounter Oncology: Subj Interval history: Feeling a bit better today. Pain is better left chest. No fever or chills. Breathing comfort. Still fatigued but this has improved. No headache, blurred or double vision. No palpitations. No headaches, blurred or double vision. Trying to eat a bit more. - Constitutional General appearance: cooperative, no acute distress, thin - Head Head exam: Present: atraumatic, normal inspection, normocephalic - Eye Eye exam: Present: normal appearance, conjuntiva pink, sclera anicteric - ENT ENT exam: Present: mucous membranes moist, normal exam, normal oropharynx - Neck Neck exam: Present: full ROM, normal inspection - Respiratory Respiratory exam: Present: decreased breath sounds, rhonchi - Cardiovascular Cardiovascular exam: Present: RRR - GI/Abdominal GI/Abdominal exam: Present: normal bowel sounds, soft - Back Exam Back exam: Present: normal inspection - Neurological Exam Neurological exam: Present: alert, CN II-XII intact, oriented X3, no focal deficits Oncology: Obj Data - Labs CBC & Chem 7: 09/09/18 13:10 09/09/18 13:10 Consult Discharge Plan - Plan Referrals: NONE,PCP [Primary Care Provider] - Inpatient Charges Provider: Dr. Vamshi Cowart Follow up - Inpatient: [id number]
[2018-09-09] MEDS ORDERED: 0.9 % Sodium Chloride 250 ML ONE ×2 (18:33→22:24)
--- NOTE | 2018-09-09 18:56 | Internal Med Progress Note ---
Hospitalist Progress Note - Encounter Date of Encounter: 09/09/18 Time of Encounter: 18:48 - Subjective Interval History: Pt reports that she is feeling better. She states she is still weak but improving. She denies fever, chills, N/V or diarrhea. She denies chest pain or SOB. She denies abdominal pain. - Exam Vitals: Temp Pulse Resp BP Pulse Ox 97.2 F L 94 16 95/57 95 09/09/18 14:55 09/09/18 14:55 09/09/18 14:55 09/09/18 14:55 09/09/18 14:55 Exam: General appearance: Present: cooperative, A&O X 3, pleasant, no acute distress, answers questions appropriately Head exam: Present: normal inspection Eye exam: Present: EOMI, normal appearance Respiratory exam: Present: CTAB. Absent: chest wall tenderness, decreased breath sounds, rales, respiratory distress, rhonchi, wheezes Cardiovascular exam: Present: RRR. Absent: diastolic murmur, systolic murmur GI/Abdominal exam: Present: normal bowel sounds, soft. Absent: tenderness Extremities exam: Present: warm, radial pulses palpable and symmetrical. Absent: calf tenderness, pedal edema, tenderness Neurological exam: Present: no focal deficits, strengths equal and symetr throughout. Absent: motor sensory deficit, facial droop, speech deficit Skin exam: Present: dry, normal color, warm - Assessment and Plan (1) Cancer associated pain Current Visit: No Status: Acute Assessment and Plan: Patient takes multiple pain medicines at home including Dilaudid, lidocaine and morphine. 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 Patient was given a dose of her home Keppra in the emergency room. Continue home medicines. Overall prognosis poor. (3) Postobstructive pneumonia Current Visit: Yes Status: Acute Assessment and Plan: As seen on imaging. Patient has history of cancer with metastasis to the lung. Blood cultures drawn in the emergency room. She was started on Vancomycin and Zosyn in the emergency room and continued in the floor. Continue IV antibiotics. Cultures incubating Monitor for worsening signs of infection (4) Pancytopenia Current Visit: Yes Status: Acute Assessment and Plan: Patient presented with decreased white blood cells of 0.2, hemoglobin of 8.7 and platelets of 124 and neutrophil 0.1 Patient had chemotherapy about 4 days ago prior to admission. Patient otherwise has stable vital signs. Hematology was called in the emergency room and pt is s/p neupogen. Repeat labs show WBC 1.2, plt 103, Neutrophil 1.1 Possible DC in am (5) Elevated bilirubin Current Visit: Yes Status: Acute Assessment and Plan: With unconjugated bilirubin of 1.4. She has had elevated bilirubin in the past as well. Imaging does indicate a subcentimeter right hepatic lesion which could be a cyst versus metastatic disease. She did not appear jaundiced on exam. Repeat labs in the morning. DVT Prophylaxis: SCD - Summary of Assessment and Plan Summary of Assessment and Plan: History of present illness: Dr. Song Ms. Beyer is a 63 year old female Patient presented to the emergency department with left-sided flank pain for 2 days. She has a history of metastatic colorectal cancer with metastasis to the brain and lung. She says the pain is on the lower part of her chest and upper abdomen but on the lateral flank side. It hurts with breathing and also m ovement. His progressively worsened over the last 2 days, she has never had pain quite like this before. She has not had shortness of breath, and denies falls and injuries to the area. - Time Spent with Patient Total time spent is greater than 50% in coordination of care (as documented) at patient's floor/unit and/or counseling patient: less than 15 minutes Plan of Care Discussed with: patient Internal Medicine: Result - Labs CBC & Chem 7: 09/09/18 13:10 09/09/18 13:10 Labs: Short CBC 09/09/18 Range/Units 13:10 WBC 1.2 L D (4.3-11.1) K/mcL Hgb 6.9 L (11.5-15.4) g/dL Hct 20.9 L (35.3-44.9) % Plt Count 103 L (140-400) K/mcL Neutrophils # 1.1 L (1.6-8.9) K/mcL BMP 09/09/18 13:10 Sodium 137 Potassium 4.0 Chloride 104 Carbon Dioxide 28 BUN 15 Creatinine 0.31 L Glucose 112 H Calcium 8.5 L Liver Function 09/09/18 Range/Units 13:10 Total Bilirubin 0.8 (0.3-1.0) mg/dL AST 8 L (13-39) Units/L ALT 11 (7-52) Units/L Alkaline Phosphatase 68 (34-104) Units/L Albumin 2.7 L (3.5-5.7) g/dL Consult Discharge Plan - Plan Referrals: NONE,PCP [Primary Care Provider] -
[2018-09-10] MEDS: Ketorolac 15 MG/ML VIAL IVP SCH ×3 (01:26→13:09)
[2018-09-10] MEDS: Piperacillin/Tazobactam 3.375 GM in 0.9 % Sodium Chloride Mini Bag 100 ML IVPB SCH ×2 (01:27→09:00)
[2018-09-10] MEDS: Vancomycin 500 MG in 0.9 % Sodium Chloride Mini Bag 100 ML IVPB SCH (01:27)
[2018-09-10] MEDS: Morphine Sulfate ER (12 HR) 30 MG TABLET.ER PO SCH (05:50)
[2018-09-10 06:26] LABS: Mean Corpuscular Hemoglobin 30.5 pg (28.0-33.3); Red Cell Distribution Width 14.2 % (11.5-14.5)
[2018-09-10 06:28] LABS: Basophils % 1.1 %; Eosinophils % 1.1 %; Hematocrit 31.6 % (35.3-44.9); Hemoglobin 10.8 g/dL (11.5-15.4); Immature Granulocytes % 6.8 % (0-4); Lymphocytes # 0.1 K/mcL (0.6-4.6); Lymphocytes % 9.1 %; Mean Corpuscular HGB Conc 34.2 g/dL (31.6-35.5); Mean Corpuscular Volume 89.3 fL (83.0-100.0); Mean Platelet Volume 9.9 fL (9.4-12.4); Monocytes # 0.1 K/mcL (0.0-1.3); Monocytes % 6.8 %; Neutrophils # 0.7 K/mcL (1.6-8.9); Nucleated Red Blood Cells 4.5 /100 WBC (0); Platelet Count 108 K/mcL (140-400); Red Blood Count 3.54 M/mcL (3.82-4.97); Segmented Neutrophils % 75.1 %
[2018-09-10 06:31] LABS: White Blood Count 0.9 K/mcL (4.3-11.1)
[2018-09-10 06:48] LABS: Alanine Aminotransferase 9 Units/L (7-52); Albumin 2.7 g/dL (3.5-5.7); Albumin/Globulin Ratio 1.2 (1.1-2.2); Alkaline Phosphatase 87 Units/L (34-104); Aspartate Amino Transferase 9 Units/L (13-39); BUN/Creatinine Ratio 41 (6-26); Bilirubin,Total 1.1 mg/dL (0.3-1.0); Blood Urea Nitrogen 18 mg/dL (8-23); Calcium 8.3 mg/dL (8.6-10.3); Carbon Dioxide 26 mEq/L (23-29); Chloride 105 mEq/L (98-107); Globulin 2.3 g/dL (2.4-3.5); Glucose 89 mg/dL (70-105); Osmolality,Calculated 287 (280-300); Sodium 138 mEq/L (136-145); eGFR For African Americans > 60 (> 60); eGFR For Non-African Americans > 60 (> 60)
[2018-09-10 06:52] LABS: Platelet Estimate Slight Decrease (Normal)
[2018-09-10 06:53] LABS: Anisocytosis 1+ (Not Present); Polychromasia 1+ (Not Present)
[2018-09-10] MEDS ORDERED: levoFLOXacin 750 MG TABLET PO SCH (09:00)
[2018-09-10] MEDS: [UNRECOGNIZED DRUG - OTHER] TP SCH (09:02)
[2018-09-10] MEDS: *HR* HYDROmorphone 4 MG TABLET PO PRN (09:18)
[2018-09-10] MEDS: hydrOXYzine pamoate 25 MG CAPSULE PO SCH (09:19)
[2018-09-10] MEDS: levETIRAcetam 500 MG/5 ML UDC PO SCH (09:21)
--- NOTE | 2018-09-10 11:12 | Discharge Summary ---
- NOTES TO OUTPATIENT PROVIDER Notes to Outpatient Provider: PCP in 5 to 7 days Orders not resulted at time of discharge: Pending orders 09/07/18 21:13 Culture,Blood [BC] Stat 09/10/18 11:00 Vancomycin,Trough Timed Date of Encounter: 09/10/18 Time of Encounter: 11:03 - Discharge Diagnosis (1) Pancytopenia Priority: Primary Status: Acute Assessment and Plan: Patient presented with decreased white blood cells of 0.2, hemoglobin of 8.7 and platelets of 124 and neutrophil 0.1 Patient had chemotherapy about 4 days ago prior to admission. Patient otherwise has stable vital signs. Hematology was called in the emergency room and pt is s/p neupogen. Repeat labs show. WBC 1.2 -->0.9, plt 103--> 108, Neutrophil 1.1-->0.7 Follow up out pt with oncology as recommended. (2) Cancer associated pain Priority: Secondary Status: Acute Assessment and Plan: Patient takes multiple pain medicines at home including Dilaudid, lidocaine and morphine. Continue home pain medications (3) Seizure Priority: Secondary Status: Acute Assessment and Plan: Patient has developed seizure disorder likely secondary to brain metastasis. Patient was given a dose of her home Keppra in the emergency room. Continue home medicines. Overall prognosis poor. (4) Postobstructive pneumonia Priority: Secondary Status: Acute Assessment and Plan: As seen on imaging. Patient has history of cancer with metastasis to the lung. Blood cultures drawn in the emergency room. She was started on Vancomycin and Zosyn in the emergency room and continued in the floor. Blood and urine cultures showing NGTD Will DC on Augmentin suspension due to trouble swallowing pills for few more days for prophylaxis (5) Elevated bilirubin Priority: Secondary Status: Acute Assessment and Plan: With unconjugated bilirubin of 1.4. She has had elevated bilirubin in the past as well. Imaging does indicate a sub centimeter right hepatic lesion which could be a cyst versus metastatic disease. She did not appear jaundiced on exam. Hospital course: History of present illness: Ms. Beyer is a 63 year old female Patient presented to the emergency department with left-sided flank pain for 2 days. She has a history of metastatic colorectal cancer with metastasis to the brain and lung. She says the pain is on the lower part of her chest and upper abdomen but on the lateral flank side. It hurts with breathing and also movement. His progressively worsened over the last 2 days, she has never had pain quite like this before. She has not had shortness of breath, and denies falls and injuries to the area. Discharge discussed with: patient - Time Spent with Patient Total time spent providing and/or coordinating discharge services: Time spent: Greater than 30 minutes - Discharge Medications Prescriptions: New Amoxicillin/Clavulanate [Augmentin Susp] 400 mg PO BID 7 Days #100 ml No Action Lidocaine/Prilocaine [Emla] 1 appl TP AD #30 gm Hydrocortisone Acet/Aloe Vera [Nucort Lotion] 60 gm TP BID #1 lotion LevETIRAcetam [Keppra] 1,000 mg PO BID Magic Mouthwash [Magic Mouthwash BLM] 10 ml PO QID PRN #240 ml PRN Reason: Mouth sores Hydromorphone HCl [Dilaudid] 8 mg PO Q6H PRN 30 Days #120 tablet PRN Reason: Pain Morphine Sulfate ER (12 HR) [MS Contin] 30 mg PO Q12HR 30 Days #60 tablet.er Dexamethasone [Decadron] 4 mg PO DAILY Hydrocortisone 2.5% CREAM [Cortaid] 1 appl TP TID PRN PRN Reason: Rash hydrOXYzine HCl [Hydroxyzine HCl] 50 mg PO DAILY Home Medications: Lidocaine/Prilocaine [Emla] 1 appl TP AD #30 gm 09/18/17 [Rx] Hydrocortisone Acet/Aloe Vera [Nucort Lotion] 60 gm TP BID #1 lotion 02/23/18 [Rx] LevETIRAcetam [Keppra] 1,000 mg PO BID 05/17/18 [History] Magic Mouthwash [Magic Mouthwash BLM] 10 ml PO QID PRN #240 ml 08/03/18 [Rx] Hydromorphone HCl [Dilaudid] 8 mg PO Q6H PRN 30 Days #120 tablet 08/12/18 [Rx] Morphine Sulfate ER (12 HR) [MS Contin] 30 mg PO Q12HR 30 Days #60 tablet.er 08/12/18 [Rx] Dexamethasone [Decadron] 4 mg PO DAILY 09/07/18 [History] Hydrocortisone 2.5% CREAM [Cortaid] 1 appl TP TID PRN 09/08/18 [History] hydrOXYzine HCl [Hydroxyzine HCl] 50 mg PO DAILY 09/08/18 [History] Amoxicillin/Clavulanate [Augmentin Susp] 400 mg PO BID 7 Days #100 ml 09/10/18 [Rx] Allergies/Adverse Reactions: Allergy/AdvReac Type Severity Reaction Status Date / Time Sulfa (Sulfonamide Allergy Hives, Rash Verified 09/08/18 16:48 Antibiotics) Date of admission: 09/07/18 22:45 Primary care physician: PCP NONE Consults: 09/07/18 21:55 Consult to Oncology Hematology [CONS] Stat Consulting Provider: Wesley Fortune Reason for Consult: postobstructive pneumonia neutropenia Call Completed: Yes 09/08/18 12:28 Consult to Physical Therapy [CONS] Routine Comment: Evaluate, develop and implement POC Reason for Consult: weakness, deconditioning Does patient have active BEDREST order?: No Is patient medically & hemodynamically stable?: Yes Patient assessed for mobility or mobilized this visit?: No 09/08/18 12:29 Consult to Occupational Therapy [CONS] Routine Comment: Evaluate, develop and implement POC Reason for Consult: Increased weakness, patient dragging left foot when ambulating per and has had recent falls Does patient have active BEDREST order?: No Is patient medically & hemodynamically stable?: Yes Patient assessed for mobility or mobilized this visit?: No Discharging clinician: Jackie Will Anticipated date of discharge: 09/10/18 - Constitutional Vitals: Temp Pulse Resp BP Pulse Ox 98.1 F 58 20 126/66 96 09/10/18 08:18 09/10/18 08:18 09/10/18 08:18 09/10/18 08:18 09/10/18 09:33 General appearance: Present: cooperative, A&O X 3, pleasant, no acute distress, answers questions appropriately Exam: General appearance: Present: cooperative, A&O X 3, pleasant, no acute distress, answers questions appropriately, thin Head exam: Present: normal inspection Eye exam: Present: EOMI, normal appearance Respiratory exam: Present: CTAB. Absent: chest wall tenderness, decreased breath sounds, rales, respiratory distress, rhonchi, wheezes Cardiovascular exam: Present: RRR. Absent: diastolic murmur, systolic murmur GI/Abdominal exam: Present: normal bowel sounds, soft. Absent: tenderness Extremities exam: Present: warm, radial pulses palpable and symmetrical. Absent: calf tenderness, pedal edema, tenderness Neurological exam: Present: no focal deficits, strengths equal and symmetrical throughout. Absent: motor sensory deficit, facial droop, speech deficit Skin exam: Present: dry, normal color, warm - Patient Status Disposition: Home, Self-Care Condition: Serious Overall status at discharge: patient is progressing back to baseline - Discharge Instructions Follow Up With: NONE,PCP [Primary Care Provider] - - Diet and Activity Activity: increase activity as tolerated Diet: advance to your usual diet
--- NOTE | 2018-09-10 11:21 | Physician Discharge Referral ---
Home Health/Hosp Referral Info Transfer to: Home Health Provider in Charge Post Discharge: PCP - Diagnosis (1) Pancytopenia Status: Acute (2) Cancer associated pain Status: Acute (3) Seizure Status: Acute (4) Postobstructive pneumonia Status: Acute (5) Elevated bilirubin Status: Acute - Respiratory Orders Smoking Cessation: Smoking cessation has been advised. For more information, call the [place] Tobacco Quit Line at 9-222-JVUL-NOW. - Diet/Nutrition Diet/Nutrition Orders: Regular - Services Needed Following services are medically necessary services: Nursing, Home Health Aide, Physical Therapy, Occupational Therapy - Transfer Medications Prescriptions: Amoxicillin/Clavulanate [Augmentin Susp] 400 mg PO BID 7 Days #100 ml Home Medications: Lidocaine/Prilocaine [Emla] 1 appl TP AD #30 gm 09/18/17 [Rx] Hydrocortisone Acet/Aloe Vera [Nucort Lotion] 60 gm TP BID #1 lotion 02/23/18 [Rx] LevETIRAcetam [Keppra] 1,000 mg PO BID 05/17/18 [History] Magic Mouthwash [Magic Mouthwash BLM] 10 ml PO QID PRN #240 ml 08/03/18 [Rx] Hydromorphone HCl [Dilaudid] 8 mg PO Q6H PRN 30 Days #120 tablet 08/12/18 [Rx] Morphine Sulfate ER (12 HR) [MS Contin] 30 mg PO Q12HR 30 Days #60 tablet.er 08/12/18 [Rx] Dexamethasone [Decadron] 4 mg PO DAILY 09/07/18 [History] Hydrocortisone 2.5% CREAM [Cortaid] 1 appl TP TID PRN 09/08/18 [History] hydrOXYzine HCl [Hydroxyzine HCl] 50 mg PO DAILY 09/08/18 [History] Amoxicillin/Clavulanate [Augmentin Susp] 400 mg PO BID 7 Days #100 ml 09/10/18 [Rx] Allergies/Adverse Reactions: Allergy/AdvReac Type Severity Reaction Status Date / Time Sulfa (Sulfonamide Allergy Hives, Rash Verified 09/08/18 16:48 Antibiotics) Certification: Further, I certify that my clinical findings support that this patient is homebound (i.e. absences from home require considerable and taxing effort and are for medical reasons or latter day services or infrequently or short duration when for other reasons) because: Homebound Reason: Patient requires assistance of a person or device to safely leave home Attestation: My signature below is to certify that this patient is under my care and that I, or nurse practitioner, or a physician's hair assistant working with me, has a [id number] encounter with this patient.
[2018-09-10 11:41] VITALS: BP 118/57
[2018-09-10] MEDS ORDERED: 0.9 % Sodium Chloride 500 ML ONE (12:05)
[2018-09-10] MEDS ORDERED: Vancomycin 500 MG in 0.9 % Sodium Chloride Mini Bag 100 ML IVPB SCH (13:00)
== END 2018-09-10 14:06 | disposition home or self-care (01) | DRG 193 ==
LOC: EMEROOARM 16:49 → 3ANU 22:45
PROVIDERS: ADMIT Family Medicine; ATTEND Family Medicine

== ENCOUNTER 2018-09-17 11:49 | Inpatient (IN) ==
[2018-09-17] MEDS ORDERED: hydrOXYzine pamoate 25 MG CAPSULE PO PRN (12:17)
[2018-09-17] MEDS: Morphine Sulfate ER (12 HR) 15 MG TABLET.ER PO SCH ×2 (16:14→17:05)
[2018-09-17] MEDS: *HR* HYDROmorphone 2 MG TABLET PO SCH ×3 (16:14→22:33)
[2018-09-17] MEDS: Stomatitis Mixture 5 ML UDC PO SCH ×3 (16:23→22:32)
--- NOTE | 2018-09-17 19:35 | Pallative History & Physical ---
Date of Encounter: 09/17/18 Time of Encounter: 10:00 Assessment and Plan (1) Sacral back pain Current visit: Yes Status: Acute Change MS contin to q8hrs Change dilaudid to q3hrs prn will consider adding gabapentin (2) Depression Current visit: Yes Status: Acute Patient appears depressed and anorexic. Will discuss with family initiation of Remeron tonight. Qualifiers: Depression Type: reactive depression Qualified Code(s): F32.9 - Major depressive disorder, single episode, unspecified (3) Constipation Current visit: Yes Status: Acute Miralax daily Senna BID Qualifiers: Constipation type: drug induced constipation Qualified Code(s): K59.03 - Drug induced constipation (4) Goals of care, counseling/discussion Current visit: No Status: Acute Met with pt, and daughter Cristina. Updated on patient's condition. Family and patient elected for comfort care only and hospice. Explained the services and philosophy of hospice. Additional 15 minutes of advanced care planning, Code status changed to DNRCC, form filled. Plan is to return home with hospice, however patient is in pain and needs titration of pain medication. Will admit to hospice GIP with discharge home with [facility] once stable. (5) Cancer associated pain Current visit: No Status: Acute (6) Colon cancer Current visit: No Status: Chronic Qualifiers: Colon location: overlapping sites Qualified Code(s): C18.8 - Malignant neoplasm of overlapping sites of colon Internal Medicine - H&P: HPI Admitted From: Intrahospital Transfer Plans for Post Hospital Care: Hospice - Home History of present illness: Ms. Beyer is a 63 year old female with medical history significant for seizures, history of colon cancer, metastatic disease to brain and lung was recently hospitalized treated for pneumonia and discharged, presents 2 days after discharge with generalized weakness, poor appetite, and worsening abdominal pain. Pain is in lower abdominal, mostly on the left side. CT imaging showed a large pelvic primary and a large lung metastatic disease. She completed palliative pelvic radiotherapy on 10/22/2016. She has completed whole brain radiotherapy as well as palliative lung radiotherapy, now received 2 doses of palliative chemotherapy, latest last week. Patient's pain being treated, the abdominal pain improved but she developed severre lower back pain with movement. Oncology has canceled palliative chemotherapy since patient is not tolerating. Patient's oral intake has decreased and she is not tolerating food or pills at this time. After lengthy meetings, patient and family decided for hospice care. Patient admitted to [facility] for pain management with the goal to return home with [facility]. Patient this morning was awake in bed, stated to be feeling comfortable as long as she does not move. Pain is mostly in the sacral area now. Abdomen was not tender. Pain is mostly related to movement, and improves with pain medication, but patient is unable to qualify the relationship between pain and medication, or better explain the type of pain. hard formed stool from colostomy bag. Past Med Surg Social Fam HX - Past Medical History Medical history: cancer, seizures Additional medical history: Stage 4 Colon CA mets to breast/brain Psychiatric history: anxiety, depression - Past Surgical History Surgical History: colostomy, hysterectomy Additional surgical history: Chemo Port - Social History Smoking Status: Current every day smoker Smokeless Tobacco Status: No Alcohol use: none Drug use: none - Family History Mother Living Status: Hx Family Cardiac Disorders: Yes Hx Family Respiratory Disorders: No Hx Family Cancer: Yes Hx Family GI Disorders: No Hx Family Endocrine Disorder: No Hx Family Neuromuscular Disorders: No Hx Family Neurologic Disorders: No Hx Family HEENT Disorders: No Hx Family Autoimmune Disorders: Yes Internal Medicine - H&P: Meds Lidocaine/Prilocaine [Emla] 1 appl TP AD #30 gm 09/18/17 [Rx] Hydrocortisone Acet/Aloe Vera [Nucort Lotion] 60 gm TP BID #1 lotion 02/23/18 [Rx] LevETIRAcetam [Keppra] 1,000 mg PO BID 05/17/18 [History] Magic Mouthwash [Magic Mouthwash BLM] 10 ml PO QID PRN #240 ml 08/03/18 [Rx] Hydromorphone HCl [Dilaudid] 8 mg PO Q6H PRN 30 Days #120 tablet 08/12/18 [Rx] Morphine Sulfate ER (12 HR) [MS Contin] 30 mg PO Q12HR 30 Days #60 tablet.er 08/12/18 [Rx] Dexamethasone [Decadron] 4 mg PO DAILY 09/07/18 [History] Hydrocortisone 2.5% CREAM [Cortaid] 1 appl TP TID PRN 09/08/18 [History] hydrOXYzine HCl [Hydroxyzine HCl] 50 mg PO DAILY 09/08/18 [History] Bed - Hospital [Hospital Bed] 1 each .ROUTE AD #1 each 09/17/18 [Rx] Allergy/AdvReac Type Severity Reaction Status Date / Time Sulfa (Sulfonamide Allergy Hives, Rash Verified 09/13/18 16:39 Antibiotics) - Constitutional Constitutional ROS PAL: decreased appetite, anorexia, lethargy - EENT Additional comments: negative - Cardiovascular Cardiovascular ROS: no chest pain, no dyspnea on exertion - Respiratory Respiratory: no cough, no dyspnea - Gastrointestinal Gastrointestinal: abdominal pain - Genitourinary Palliative ROS female: no dysuria, no hematuria - Musculoskeletal Musculoskeletal ROS IM: back pain - Integumentary Additional comments: negative - Neurological Neurological ROS: no dizziness, no focal weakness - Psychiatric Additional comments: depressed mood Palliative Care-Exam - Constitutional Exam: - Head Head Exam: Present: atraumatic - Eye Eye exam: Present: EOMI, normal appearance - ENT ENT exam: Present: mucous membranes dry, normal oropharynx - Neck Neck exam: Present: full ROM - Respiratory Respiratory exam: Present: decreased breath sounds (RLL). Absent: accessory muscle use, respiratory distress - Cardiovascular Cardiovascular exam: Present: RRR, +S1, +S2 - GI/Abdominal Exam GI/Abdominal exam: Present: soft, not tender additional comments: - Extremities Exam Extremities exam: Present: full ROM, normal inspection. Absent: pedal edema - Back Exam Additional comments: tailbone tenderness - Neurological Exam Neurological exam: Present: alert, CN II-XII intact, oriented X3, no focal deficits - Psychiatric Psychiatric exam: Present: flat affect - Skin Skin exam: Present: dry, intact Palliative Quality Palliative Quality: Screen for Code Status: Yes, Screen for Goals of Care: Yes, Screen for Pain: Yes, If Pain Regimen Started, Initiate Bowel Regimen: Yes, Screen for Nausea/Vomitting: Yes Code Status: 09/17/18 12:10 Resuscitation Status: Active [RES] Routine Comment: Resuscitation Status: DNR-Comfort Care
[2018-09-17] MEDS: levETIRAcetam 500 MG/5 ML UDC PO SCH (22:31)
[2018-09-17] MEDS: Mirtazapine 15 MG TABLET PO SCH (22:31)
[2018-09-17] MEDS: Sennosides/Docusate Sodium TABLET PO SCH (22:31)
[2018-09-17] MEDS: *HR* HYDROmorphone 4 MG TABLET PO SCH (22:32)
[2018-09-18] MEDS: Morphine Sulfate ER (12 HR) 15 MG TABLET.ER PO SCH ×2 (00:37→08:12)
[2018-09-18] MEDS: *HR* HYDROmorphone 4 MG TABLET PO SCH ×8 (00:41→21:06)
[2018-09-18] MEDS: levETIRAcetam 500 MG/5 ML UDC PO SCH ×2 (08:12→21:07)
[2018-09-18] MEDS: Stomatitis Mixture 5 ML UDC PO SCH ×4 (08:12→21:13)
[2018-09-18] MEDS: Sennosides/Docusate Sodium TABLET PO SCH ×2 (08:12→21:05)
--- NOTE | 2018-09-18 09:05 | Palliative Progress Note ---
Date of Encounter: 09/18/18 Time of Encounter: 09:01 - Assessment and plan (1) Sacral back pain Current Visit: Yes Status: Acute Assessment and plan: Patient does not seem to be having relief from the morphine ER. Discussed transition to Methadone, pt and family agreeable. in the last 24hrs, pt received Hydromorphone 8mgx7 and morphine 45 mg x3 for a total of 345 OME will start Methadone 7.5 mg q8hrs continue Dilaudid 8 mg q3hrs will d/c morphine ER (2) Depression Current Visit: Yes Status: Acute Assessment and plan: Patient appears depressed and anorexic. trial of Remeron 7.5 mg qhs Qualifiers: Depression Type: reactive depression Qualified Code(s): F32.9 - Major depr essive disorder, single episode, unspecified (3) Constipation Current Visit: Yes Status: Acute Assessment and plan: Miralax daily Senna BID Qualifiers: Constipation type: drug induced constipation Qualified Code(s): K59.03 - Drug induced constipation (4) Goals of care, counseling/discussion Current Visit: No Status: Acute Assessment and plan: On hospice GIP for pain management. Goal is to return home once pain is controlled. (5) Cancer associated pain Current Visit: No Status: Acute (6) Colon cancer Current Visit: No Status: Chronic Qualifiers: Colon location: overlapping sites Qualified Code(s): C18.8 - Malignant neoplasm of overlapping sites of colon - Time Spent With Patient Total time spent is greater than 50% in coordination of care (as documented) at patient's floor/unit and/or counseling patient: Greater than 35 minutes - Subjective Interval history: Patient appears uncomfortable today. She had a good night of sleep with the Remeron. She noticed no changes in her pain level and can't explain if medications are helping. Nurse noticed that pt is having more difficulties swallowing pills. Family at the bedside. - Constitutional Exam: - Constitutional Constitutional ROS PAL: decreased appetite, anorexia, lethargy - EENT Additional comments: negative - Cardiovascular Cardiovascular ROS: no chest pain, no dyspnea on exertion - Respiratory Respiratory: no cough, no dyspnea - Gastrointestinal Gastrointestinal: abdominal pain - Genitourinary Palliative ROS female: no dysuria, no hematuria - Musculoskeletal Musculoskeletal ROS IM: back pain - Integumentary Additional comments: negative - Neurological Neurological ROS: no dizziness, no focal weakness - Psychiatric Additional comments: depressed mood Palliative Quality Palliative Quality: Screen for Code Status: Yes, Screen for Goals of Care: Yes, Screen for Pain: Yes, If Pain Regimen Started, Initiate Bowel Regimen: Yes, Screen for Nausea/Vomitting: Yes Code Status: 09/17/18 12:10 Resuscitation Status: Active [RES] Routine Comment: Resuscitation Status: DNR-Comfort Care
[2018-09-18] MEDS: Methadone Oral Concentrate 50 MG/5 ML UDC PO SCH (16:55)
[2018-09-18] MEDS: Mirtazapine 15 MG TABLET PO SCH (21:05)
[2018-09-19] MEDS: *HR* HYDROmorphone 4 MG TABLET PO SCH ×4 (00:11→09:49)
[2018-09-19] MEDS: Methadone Oral Concentrate 50 MG/5 ML UDC PO SCH ×3 (00:11→16:58)
[2018-09-19] MEDS: levETIRAcetam 500 MG/5 ML UDC PO SCH ×2 (09:50→21:06)
[2018-09-19] MEDS: Stomatitis Mixture 5 ML UDC PO SCH ×4 (09:50→21:06)
[2018-09-19] MEDS: Sennosides/Docusate Sodium TABLET PO SCH ×2 (09:50→21:06)
[2018-09-19] MEDS: Morphine Sulfate Oral CONC 10 MG/0.5 ML ORAL.SYG SL PRN ×7 (10:50→23:05)
[2018-09-19] MEDS: Mirtazapine 15 MG TABLET PO SCH (21:06)
[2018-09-20] MEDS: Methadone Oral Concentrate 50 MG/5 ML UDC PO SCH ×2 (00:08→08:27)
[2018-09-20] MEDS: Morphine Sulfate Oral CONC 10 MG/0.5 ML ORAL.SYG SL PRN ×6 (02:13→12:56)
[2018-09-20] MEDS: levETIRAcetam 500 MG/5 ML UDC PO SCH (09:06)
[2018-09-20] MEDS: Sennosides/Docusate Sodium TABLET PO SCH (09:07)
[2018-09-20] MEDS: Stomatitis Mixture 5 ML UDC PO SCH ×4 (09:07→21:37)
--- NOTE | 2018-09-20 10:53 | Palliative Progress Note ---
Date of Encounter: 09/19/18 Time of Encounter: 10:00 - Assessment and plan (1) Sacral back pain Current Visit: Yes Status: Acute Assessment and plan: Patient is in more pain today. No IV access. Continue Methadone 7.5 mg q8hrs discontinue Dilaudid 8 mg q3hrs start Roxanol 30 mg q1hr prn (2) Depression Current Visit: Yes Status: Acute Assessment and plan: Patient appears depressed and anorexic. continue trial of Remeron 7.5 mg qhs Qualifiers: Depression Type: reactive depression Qualified Code(s): F32.9 - Major depressive disorder, single episode, unspecified (3) Constipation Current Visit: Yes Status: Acute Assessment and plan: Miralax daily Senna BID Qualifiers: Constipation type: drug induced constipation Qualified Code(s): K59.03 - Drug induced constipation (4) Goals of care, counseling/discussion Current Visit: No Status: Acute Assessment and plan: On hospice GIP for pain management. Goal is to return home once pain is controlled. (5) Cancer associated pain Current Visit: No Status: Acute (6) Colon cancer Current Visit: No Status: Chronic Qualifiers: Colon location: overlapping sites Qualified Code(s): C18.8 - Malignant neoplasm of overlapping sites of colon - Time Spent With Patient Total time spent is greater than 50% in coordination of care (as documented) at patient's floor/unit and/or counseling patient: - Subjective Interval history: Patient was in more pain this morning, pain mostly in the abdomen area. Colostomy bag has output of thick stool. abdomen very tender to touch. Pt is having difficultie swallowing pill, even small. Will change pain medication to liquid. - Constitutional Exam: - Constitutional Exam: - Constitutional Constitutional ROS PAL: decreased appetite, anorexia, lethargy - EENT Additional comments: negative - Cardiovascular Cardiovascular ROS: no chest pain, no dyspnea on exertion - Respiratory Respiratory: no cough, no dyspnea - Gastrointestinal Gastrointestinal: abdominal pain - Genitourinary Palliative ROS female: no dysuria, no hematuria - Musculoskeletal Musculoskeletal ROS IM: back pain - Integumentary Additional comments: negative - Neurological Neurological ROS: no dizziness, no focal weakness - Psychiatric Additional comments: depressed mood Palliative Quality Palliative Quality: Screen for Code Status: Yes, Screen for Goals of Care: Yes, Screen for Pain: Yes, If Pain Regimen Started, Initiate Bowel Regimen: Yes, Screen for Nausea/Vomitting: Yes Code Status: 09/17/18 12:10 Resuscitation Status: Active [RES] Routine Comment: Resuscitation Status: DNR-Comfort Care Consult Discharge Plan - Plan Referrals: NONE,PCP [Primary Care Provider] -
--- NOTE | 2018-09-20 11:04 | Palliative Progress Note ---
Date of Encounter: 09/20/18 Time of Encounter: 10:10 - Assessment and plan (1) Intractable abdominal pain Current Visit: No Status: Acute Assessment and plan: Patient is in more pain today. Discussed with family that we will need IV medication for pain control. Pt and family agreeable. Discontinue Methadone 7.5 mg q8hrs Pt received methadone 7.5 mg x3 and Morphine 30 mg x11 in 24hrs, OME >400mg Start fentanyl gtt at 100 mcg/h, continue Roxanol 30 mg q1hr prn (2) Seizure Current Visit: No Status: Acute Assessment and plan: Patient is at risk of seizures due to brain mets, have been unable to take Keppra for the last 2 days, will start Diazepam SL BID and lorazepam IV prn for seizures. (3) Sacral back pain Current Visit: Yes Status: Acute Assessment and plan: see above (4) Constipation Current Visit: Yes Status: Acute Assessment and plan: Miralax daily good output from colostomy. Qualifiers: Constipation type: drug induced constipation Qualified Code(s): K59.03 - Drug induced constipation (5) Goals of care, counseling/discussion Current Visit: No Status: Acute Assessment and plan: On hospice GIP for pain management. Met with pt's Arnoldo and daughter, explained that Basilia is declining and remains very uncomfortable despite oral high doses of pain medication. She is no longer tolerating feeds. Discussed to start IV fentanyl gtt for pain and benzos for seizures and agitation. Family understands that the medications will likely make pt more drowsy, less likely to eat or interact. Family agrees that pt's comfort is the most important goal at this point. Patient as of now is not expected to survive current admission. (6) Cancer associated pain Current Visit: No Status: Acute (7) Colon cancer Current Visit: No Status: Chronic Qualifiers: Colon location: overlapping sites Qualified Code(s): C18.8 - Malignant neoplasm of overlapping sites of colon (8) Depression Current Visit: Yes Status: Acute Qualifiers: Depression Type: reactive depression Qualified Code(s): F32.9 - Major depressive disorder, single episode, unspecified - Time Spent With Patient Total time spent is greater than 50% in coordination of care (as documented) at patient's floor/unit and/or counseling patient: - Subjective Interval history: Patient today is lethargic, opening eyes, but not speaking. Continue to have purse lips breathing. Arnoldo at the bedside states that she may be somewhat better, but still in a lot of pain, especially when she is moved. No longer tolerating POs. Discussed that at this point for pt's comfort, will start a Fentanyl drip. Arnoldo agreeable. - Constitutional Exam: - Constitutional Constitutional ROS PAL: decreased appetite, anorexia, lethargic - EENT Additional comments: negative - Cardiovascular Cardiovascular ROS: no chest pain, no dyspnea on exertion - Respiratory Respiratory: no cough, no dyspnea - Gastrointestinal Gastrointestinal: abdominal pain, diffused tenderness - Genitourinary Palliative ROS female: no dysuria, no hematuria, benito in place - Musculoskeletal Musculoskeletal ROS IM: back pain - Integumentary Additional comments: negative - Neurological Neurological ROS: no dizziness, no focal weakness - Psychiatric Additional comments: depressed mood Palliative Quality Palliative Quality: Screen for Code Status: Yes, Screen for Goals of Care: Yes, Screen for Pain: Yes, If Pain Regimen Started, Initiate Bowel Regimen: Yes, Screen for Nausea/Vomitting: Yes Code Status: 09/17/18 12:10 Resuscitation Status: Active [RES] Routine Comment: Resuscitation Status: DNR-Comfort Care Consult Discharge Plan - Plan Referrals: NONE,PCP [Primary Care Provider] -
[2018-09-20] MEDS: FentaNYL (PF) 1,000 MCG in 0.9 % Sodium Chloride 80 ML IVC SCH ×2 (12:56→21:27)
[2018-09-20] MEDS: Mirtazapine 15 MG TABLET PO SCH (21:37)
[2018-09-21] MEDS: FentaNYL (PF) 1,000 MCG in 0.9 % Sodium Chloride 80 ML IVC SCH ×4 (03:12→17:18)
[2018-09-21] MEDS: Stomatitis Mixture 5 ML UDC PO SCH ×4 (07:44→20:42)
[2018-09-21] MEDS: Morphine Sulfate Oral CONC 10 MG/0.5 ML ORAL.SYG SL PRN ×3 (08:00→22:08)
--- NOTE | 2018-09-21 10:34 | Palliative Progress Note ---
Date of Encounter: 09/21/18 Time of Encounter: 08:30 - Assessment and plan (1) Intractable abdominal pain Current Visit: No Status: Acute Assessment and plan: Patient appears to be better controlled On fentanyl gtt at 2 00 mcg/h, continue Roxanol 30 mg q1hr prn (2) Seizure Current Visit: No Status: Acute Assessment and plan: Patient is at risk of seizures due to brain mets, have been unable to take Keppra for the last 2 days, on Diazepam SL BID and lorazepam IV prn for seizures. (3) Sacral back pain Current Visit: Yes Status: Acute Assessment and plan: see above (4) Constipation Current Visit: Yes Status: Acute Assessment and plan: Miralax daily good output from colostomy. Qualifiers: Constipation type: drug induced constipation Qualified Code(s): K59.03 - Drug induced constipation (5) Goals of care, counseling/discussion Current Visit: No Status: Acute Assessment and plan: Continues to require GIP for pain management and frequent medication adjustment. Appear actively dying. (6) Cancer associated pain Current Visit: No Status: Acute (7) Colon cancer Current Visit: No Status: Chronic Qualifiers: Colon location: overlapping sites Qualified Code(s): C18.8 - Malignant neoplasm of overlapping sites of colon (8) Depression Current Visit: Yes Status: Acute Assessment and plan: Patient now is unable to swallow pills will d/c Remeron 7.5 mg qhs Qualifiers: Depression Type: reactive depression Qualified Code(s): F32.9 - Major depressive disorder, single episode, unspecified - Time Spent With Patient Total time spent is greater than 50% in coordination of care (as documented) at patient's floor/unit and/or counseling patient: - Subjective Interval history: Patient today is lethargic, opening eyes, but not speaking. She appears more comfortable, breathing through her nose. Fentanyl drip is now at 200mcg/hr and she required 2 doses of morphine prn in 24 hrs. Husbands at the bedside stated she had a well resting night. Emotional support provided. - Constitutional Exam: - Constitutional Constitutional ROS PAL: decreased appetite, anorexia, lethargic - EENT Additional comments: negative - Cardiovascular Cardiovascular ROS: no chest pain, no dyspnea on exertion - Respiratory Respiratory: no cough, no dyspnea - Gastrointestinal Gastrointestinal: abdominal pain, diffused tenderness - Genitourinary Palliative ROS female: no dysuria, no hematuria, benito in place - Musculoskeletal Musculoskeletal ROS IM: back pain - Integumentary Additional comments: negative - Neurological Neurological ROS: no dizziness, no focal weakness - Psychiatric Additional comments: depressed mood Palliative Quality Palliative Quality: Screen for Code Status: Yes, Screen for Goals of Care: Yes, Screen for Pain: Yes, If Pain Regimen Started, Initiate Bowel Regimen: Yes, Screen for Nausea/Vomitting: Yes Code Status: 09/17/18 12:10 Resuscitation Status: Active [RES] Routine Comment: Resuscitation Status: DNR-Comfort Care Consult Discharge Plan - Plan Referrals: NONE,PCP [Primary Care Provider] -
[2018-09-21] MEDS: *HR* LORazepam 2 MG/ML VIAL IVP PRN (10:55)
[2018-09-22] MEDS: Stomatitis Mixture 5 ML UDC PO SCH ×4 (11:22→21:54)
--- NOTE | 2018-09-22 11:38 | Palliative Progress Note ---
Date of Encounter: 09/22/18 Time of Encounter: 10:30 - Assessment and plan (1) Intractable abdominal pain Current Visit: No Status: Acute Assessment and plan: Patient appears to be better controlled On fentanyl gtt now at 250 mcg/h, continue Roxanol 30 mg q1hr prn (2) Seizure Current Visit: No Status: Acute Assessment and plan: Patient is at risk of seizures due to brain mets, have been unable to take Keppra for the last 2 days, on Diazepam SL BID and lorazepam IV prn for seizures. (3) Sacral back pain Current Visit: Yes Status: Acute Assessment and plan: see above (4) Constipation Current Visit: Yes Status: Acute Assessment and plan: no output from colostomy, abdomen is soft, no mass felt. Pt appears comfortable, but is unable to tolerate POs. If she remains stable today, will reassess tomorrow. Qualifiers: Constipation type: drug induced constipation Qualified Code(s): K59.03 - Drug induced constipation (5) Goals of care, counseling/discussion Current Visit: No Status: Acute Assessment and plan: Continues to require GIP for pain management and frequent medication adjustment. Appear actively dying. family updated, emotional support provided. (6) Cancer associated pain Current Visit: No Status: Acute (7) Colon cancer Current Visit: No Status: Chronic Qualifiers: Colon location: overlapping sites Qualified Code(s): C18.8 - Malignant neoplasm of overlapping sites of colon (8) Depression Current Visit: Yes Status: Acute Assessment and plan: Patient now is unable to swallow pills will d/c Remeron 7.5 mg qhs Qualifiers: Depression Type: reactive depression Qualified Code(s): F32.9 - Major depressive disorder, single episode, unspecified - Time Spent With Patient Total time spent is greater than 50% in coordination of care (as documented) at patient's floor/unit and/or counseling patient: - Subjective Interval history: Patient today is lethargic, appears more comfortable, breathing through her nose. No output from colostomy. Fentanyl drip is now at 200mcg/hr and she required 3 doses of morphine prn in 24 hrs. No po intake. Daughter Tatiana at the bedside. Emotional support provided. - Constitutional Vitals: refusing vitals Exam: - Constitutional Exam: - Constitutional Constitutional ROS PAL: decreased appetite, anorexia, lethargic - EENT Additional comments: negative - Cardiovascular Cardiovascular ROS: no chest pain, no dyspnea on exertion - Respiratory Respiratory: no cough, no dyspnea - Gastrointestinal Gastrointestinal: abdominal pain, diffused tenderness - Genitourinary Palliative ROS female: no dysuria, no hematuria, benito in place - Musculoskeletal Musculoskeletal ROS IM: back pain - Integumentary Additional comments: negative - Neurological Neurological ROS: no dizziness, no focal weakness - Psychiatric Additional comments: depressed mood Palliative Quality Palliative Quality: Screen for Code Status: Yes, Screen for Goals of Care: Yes, Screen for Pain: Yes, If Pain Regimen Started, Initiate Bowel Regimen: Yes, Screen for Nausea/Vomitting: Yes Code Status: 09/17/18 12:10 Resuscitation Status: Active [RES] Routine Comment: Resuscitation Status: DNR-Comfort Care Consult Discharge Plan - Plan Referrals: NONE,PCP [Primary Care Provider] -
[2018-09-22] MEDS: Morphine Sulfate Oral CONC 10 MG/0.5 ML ORAL.SYG SL PRN (18:35)
[2018-09-22] MEDS: *HR* LORazepam 2 MG/ML VIAL IVP PRN (18:40)
[2018-09-22] MEDS ORDERED: Scopolamine Patch 1.5 MG PATCH.TD72 TD SCH (18:45)
[2018-09-23] MEDS: Stomatitis Mixture 5 ML UDC PO SCH ×4 (09:52→22:09)
--- NOTE | 2018-09-23 09:57 | Palliative Progress Note ---
Date of Encounter: 09/23/18 Time of Encounter: 09:54 - Assessment and plan (1) Intractable abdominal pain Current Visit: No Status: Acute Assessment and plan: Patient appears to be better controlled On fentanyl gtt now at 250 mcg/h, continue Roxanol 30 mg q1hr prn (2) Seizure Current Visit: No Status: Acute Assessment and plan: Patient is at risk of seizures due to brain mets, not taking POs, on Diazepam SL BID and lorazepam IV prn. (3) Sacral back pain Current Visit: Yes Status: Acute Assessment and plan: see above (4) Constipation Current Visit: Yes Status: Acute Assessment and plan: no output from colostomy, abdomen is soft, no mass felt. Pt appears comfortable, but is unable to tolerate POs. If she remains stable today, will reassess tomorrow. Qualifiers: Constipation type: drug induced constipation Qualified Code(s): K59.03 - Drug induced constipation (5) Goals of care, counseling/discussion Current Visit: No Status: Acute Assessment and plan: Continues to require GIP for pain management and frequent medication adjustment. Appear actively dying. family updated, emotional support provided. (6) Cancer associated pain Current Visit: No Status: Acute (7) Colon cancer Current Visit: No Status: Chronic Qualifiers: Colon location: overlapping sites Qualified Code(s): C18.8 - Malignant neoplasm of overlapping sites of colon - Time Spent With Patient Total time spent is greater than 50% in coordination of care (as documented) at patient's floor/unit and/or counseling patient: - Subjective Interval history: Patient remains lethargic, breathing heavily, developed secretions overnight and scopolamine patch placed. No output from colostomy. Fentanyl drip is now at 250mcg/hr and she required 1 doses of morphine prn in 24 hrs and 1 of ativan. No po intake. at the bedside. Emotional support provided. Continue current management. - Constitutional Exam: - Constitutional Constitutional ROS PAL: decreased appetite, anorexia, lethargic - EENT Additional comments: negative - Cardiovascular Cardiovascular ROS: no chest pain, no dyspnea on exertion - Respiratory Respiratory: no cough, no dyspnea - Gastrointestinal Gastrointestinal: abdominal pain, diffused tenderness - Genitourinary Palliative ROS female: no dysuria, no hematuria, benito in place - Musculoskeletal Musculoskeletal ROS IM: back pain - Integumentary Additional comments: negative - Neurological Neurological ROS: no dizziness, no focal weakness Palliative Quality Palliative Quality: Screen for Code Status: Yes, Screen for Goals of Care: Yes, Screen for Pain: Yes, If Pain Regimen Started, Initiate Bowel Regimen: Yes, Screen for Nausea/Vomitting: Yes Code Status: 09/17/18 12:10 Resuscitation Status: Active [RES] Routine Comment: Resuscitation Status: DNR-Comfort Care Consult Discharge Plan - Plan Referrals: NONE,PCP [Primary Care Provider] -
[2018-09-23] MEDS: *HR* LORazepam 2 MG/ML VIAL IVP PRN (21:25)
[2018-09-23] MEDS ORDERED: Atropine Sulfate 1% 40 DROP/2 ML BOTTLE SL PRN (22:07)
--- NOTE | 2018-09-24 09:05 | Palliative Progress Note ---
Date of Encounter: 09/24/18 Time of Encounter: 09:00 - Assessment and plan (1) Congestion of upper airway Current Visit: Yes Status: Acute Assessment and plan: Continue Scopolamine patch and atropine drops PRN. Has utilized Atropine x1. Upper airway sounds dry this am. Continue and monitor (2) Hospice care Current Visit: Yes Status: Acute Assessment and plan: Patient requires continue Fentanyl drip for comfort, and is actively dying. discussed concern for high fever and risk for seizures. I did add Acetaminophen suppository we can try through stoma, but explained these are terminal fevers associated with the dying process and medication at this point may not help. He verbalized understanding. Provided emotional support. She will likely pass within the next 24-48 hours. (3) Cancer associated pain Current Visit: Yes Status: Acute Assessment and plan: Patient continue with Fentanyl drip at 250mcg/hr. She appears comfortable, has not required any additional Roxanol for breakthrough pain over the last 24 ho urs. Continue to monitor (4) Colon cancer Current Visit: No Status: Chronic Assessment and plan: Patient is terminal and actively dying Qualifiers: Colon location: overlapping sites Qualified Code(s): C18.8 - Malignant neoplasm of overlapping sites of colon - Time Spent With Patient Total time spent is greater than 50% in coordination of care (as documented) at patient's floor/unit and/or counseling patient: 25 - 35 minutes - Subjective Interval history: Patient unresponsive to verbal and tactile stimuli. Arnoldo at bedside. Temp up to 104.8 this am. Heart rate 160-170. RR 24/min.. Mottling to knees and feet. Skin hot/moist to touch. Does not appear in distress however, and states she has been resting quietly. - Constitutional General appearance: Present: no acute distress - Respiratory Additional comments: Resp shallow but regular. Breath sounds with occasional rhonchi but mostly clear. - Cardiovascular Cardiovascular exam: Present: tachycardia - GI/Abdominal Additional comments: Colostomy intact, no output noted - Additional comments: Scant amount dk hieu urine noted - Extremities Exam Additional comments: Mottling to knees and feet. - Neurological Exam Additional comments: Unresponsive to verbal and tactile stimuli - Skin Skin exam: Present: diaphoretic, pallor, warm Palliative Quality Palliative Quality: Screen for Code Status: Yes, Screen for Goals of Care: Yes, Screen for Pain: Yes, If Pain Regimen Started, Initiate Bowel Regimen: Yes, Screen for Nausea/Vomitting: Yes Code Status: 09/17/18 12:10 Resuscitation Status: Active [RES] Routine Comment: Resuscitation Status: DNR-Comfort Care Palliative Scale - Palliative Performance Scale How ambulatory is this patient?: Totally bed bound What is patient's level of activity and evidence of disease?: Unable to do any activity, Extensive disease How much self-care assistance does patient require?: Total care How much oral intake does the patient have?: Mouth care only What is this patient's level of consciousness?: Drowsy or coma with or without confusion Palliative Performance Score: 10 % Consult Discharge Plan - Plan Referrals: NONE,PCP [Primary Care Provider] -
[2018-09-24] MEDS: Stomatitis Mixture 5 ML UDC PO SCH ×4 (09:48→20:09)
[2018-09-24] MEDS: Acetaminophen 650 MG RECTAL SUPP RC PRN ×2 (09:56→17:34)
[2018-09-24] MEDS: *HR* LORazepam 2 MG/ML VIAL IVP SCH ×2 (13:06→18:26)
[2018-09-24 19:04] VITALS: BP 113/78
--- NOTE | 2018-09-29 14:18 | Death Note ---
Discharge Sum: Summary - Date and Time Date of admission: 09/17/18 15:57 Date of : 09/24/18 Time of : 22:25 - Summary Details: Patient had a history of metastatic colon cancer, recently in hospital for pn [place], and came back to hospital with weakness, abd pain, no appetite. She declined throughout hospital stay and pain was increasing. She was no longer a candidate for chemotherapy, and was not tolerating oral feedings. After palliative consultation, it was decided to transition patient into hospice care. She had uncontrolled abd and low back pain, and was transitioned to inpatient hospice for pain management. This was not controlled with oral analgesics, and she ultimately required a Fentanyl drip that was titrated for comfort. She began to run high fevers and was given medication to prevent risk of seizures. She 09/24/2018 peacefully with family at bedside. - Additional Data Confirmation of as documented by pronouncing clinician: no pulse, no respirations, no heart sounds Family: at bedside Attending physician: Shyann Melgoza MD Was code activated?: No Autopsy requested?: No motor vehicle examiner notified?: No Organ bank notified?: Yes Hospice patient?: Yes Discharge Sum: Diag - PCOD Probable Cause of : Respiratory arrest Discharge Sum: Prov - Provider Primary care physician: PCP NONE Admitting clinician: Shyann Melgoza Consults: 09/17/18 12:10 Consult to Palliative Care [CONS] Routine Comment: Consulting Provider: Palliative Care [place] Reason for Consult: hospice GIP Call Completed: Yes
== END 2018-09-24 22:55 | disposition expired | DRG 948 ==
LOC: 2ANU 15:57
PROVIDERS: ADMIT Internal Medicine Hospice and Palliative Medicine; ATTEND Internal Medicine Hospice and Palliative Medicine